=== PATIENT | female | born 1935 | race Caucasian/White ===

== ENCOUNTER → 2017-01-03 | Day surgery (SDC) | payer OTHER ==
[2016-12-14 15:51] VITALS: Ht 162.6 cm; Wt 62.3 kg
[~2017-01-03] VITALS: Ht 162.6 cm; Wt 62.3 kg
[~2017-01-03] MED LIST: 500ML BSS 0.3ML EPI 1:1000PF IRRIG ONE; ACETAMINOPHEN 325 MG TAB PO PRN; AMVISC PLUS 0.8ML SYRINGE INT OCU ONE; ASPI81TA28 PO; ATROPINE SULFATE 0.1 MG/ML 5ML SYR IV PRN; AcetaZOLAMIDE 250 MG TAB PO SCH; BETAXOLOL HCL 0.25% OP SUSP PER DROP CHARGE OPR SCH; BRIMONIDINE TART 0.2% OP SOLN PER DROP CHARGE ONE; BSS FLUSH ONE; CLTP PO; COEN100C15 PO; CYAN500T13 PO; ENDOCOAT 0.85ML SYRINGE INT OCU ONE; EpHEDrine SULFATE INJ 50 MG/ML AMP IV PRN; EpINEphrine INJ 1MG/ML AMP 1 MG/ML AMP ONE; LACTATED RINGER'S 1000ML 500 ML IV SCH; LIDOCAINE 4% OP SOLN DROP CHARGE ONE; LIDOCAINE 4% OP SOLN DROP CHARGE OPR SCH; LIDOCAINE HCL 1% MPF 2 ML VIAL ONE; METO50TA16 PO; MIDAZOLAM HCL 1 MG/ML 2ML VIAL ONE; MIX: 4ML BSS 1ML EPI 1:1000 PF INSTIL ONE; MOXIFLOXACIN OPH SOLN PER DROP CHARGE ONE; MULT-506 PO; OCUCOAT 1 ML SOLN IO ONE; OMEG10007 PO; POVIDONE-IODINE OP SOLN 30 ML BTL ONE; PROPARACAINE 0.5% OP SOLN PER DROP CHARGE OPR SCH; PRVC40 PO; PYRI100T4 PO; TOBRAMYCIN/DEXAMETHASONE OPH OINT PER APPLN CHARGE ONE; TYLOTC500 PO
--- NOTE | 2017-01-03 07:55 | History & Physical Bridge - [place] ---
H&P Re-Evaluation Bridge Note: I have examined the patient, reviewed the History & Physical and in the interval since the performance of the History & Physical I have noted the following changes of clinical significance: No changes noted
[2017-01-03] MEDS: PHENYLEPHRINE HCL 2.5% OP SOLN PER DROP CHARGE OPR SCH ×2 (08:45→08:51)
[2017-01-03] MEDS: TROPICAMIDE 1% OP SOLN PER DROP CHARGE OPR SCH ×2 (08:46→08:52)
[2017-01-03] MEDS: CYCLOPENTOLATE HCL 1% OP SOLN PER DROP CHARGE OPR SCH ×2 (08:47→08:53)
[2017-01-03] MEDS: MOXIFLOXACIN OPH SOLN PER DROP CHARGE OPR SCH ×2 (08:48→08:58)
--- NOTE | 2017-01-03 09:43 | Discharge Instructions-SurgCtr ---
Discharge Instructions Date of Service January 03, 2017. Visit Reason for Visit: Right Cataract Discharge Discharge Diagnosis / Problem: lens implant left eye Discharge Goals Goal(s): Improve function Activity Recommendations Activity Limitations: resume your previous activity Lifting Limitations: no more than 10 pounds Exercise/Sports Limitations: gradually increase as tolerated May Resume Sexual Activity: when tolerated Shower/Bathe: tomorrow Driving or Machine Use: resume 1 day after discharge Anesthesia . Post Anesthesia Instructions: If you have had General Anesthesia or IV Sedation: * Do not drive today. * Resume driving when surgeon permits. * Do not make important decisions or sign legal documents today. * Call surgeon for: 1. Temperature elevations greater than 101 degrees F. 2. Uncontrollable pain. 3. Excessive bleeding. 4. Persistent nausea and vomiting. 5. Medication intolerance (nausea, vomiting or rash). * For nausea and vomiting use only clear liquids such as: tea, soda, bouillon until nausea subsides, then gradually increase diet as tolerated. * If you have any concerns or questions, call your surgeon's office. If physician is unavailable and it is an emergency, call 911 or go to the nearest emergency room. . Instructions / Follow-Up Instructions / Follow-Up ACTIVITY RECOMMENDATIONS: * Light activities. * Mild irritation and blurred vision are common for the first few days. * You may walk outside, read, watch television. * Redness around the white part of the eye is common. MEDICATIONS: Resume previous medications unless instructed otherwise by your surgeon. * Take white Diamox (Acetazolamide) tablet at 1 pm today. Start all eye drops at 1 pm today: * Eye drops (today and tomorrow): Prednisone - one drop in operative eye every 3 hours while awake Tobramycin - one drop in operative eye every 3 hours while awake SPECIAL CARE INSTRUCTIONS: * Tape plastic shield over eye to sleep at night. Call your doctor at with any concerns or problems. FOLLOW UP VISIT: Follow-up with Dr Ferrer at [place] office as scheduled. Diet Recommendations Home Diet: no limitations Procedures Procedures Performed: cataract extraction with lens implant Pending Studies Studies pending at discharge: no Medical Emergencies . Who to Call and When: Medical Emergencies: If at any time you feel your situation is an emergency, please call 911 immediately. . Non-Emergent Contact Non-Emergency issues call your: [employer] Call Non-Emergent contact if: your pain is not controlled [phone] . . "Provider Documentation" section prepared by Marvin Ferrer. .
--- NOTE | 2017-01-03 09:45 | [facility] Operative Report ---
Operative Report Date of Service January 03, 2017. Operative Report 1. PREOPERATIVE DIAGNOSIS: Senile nuclear cataract, right eye. 2. POSTOPERATIVE DIAGNOSIS: Senile nuclear cataract, right eye. 3. PROCEDURE: Phacoemulsification of right cataract with posterior chamber lens implant, type [employer], model MX60, power +23.5 diopters. ANESTHESIA: Local standby. SURGEON: Dr. Ferrer. COMPLICATIONS: None. OPERATING TIME: 10 minutes. 4. OPERATION AND FINDINGS: DESCRIPTION OF PROCEDURE: The right pupil was dilated. The anesthetic was administered using a topical technique. The right eye was prepped and draped. A speculum was placed. A clear corneal incision was formed. The chamber was filled with Amvisc Plus and Endocoat. Epinephrine solution was used. A paracentesis was placed. A capsulorrhexis was performed. The nucleus was hydrodissected. The lens was removed with phacoemulsification. Time was 3.55 seconds. The aspiration unit was used to remove the cortex. The capsule was filled with Amvisc Plus. The lens implant was folded and placed into the capsule. The incision was hydrated. The Amvisc was aspirated. The wound was secure. The chamber was deep. The pupil was round. Brimonidine, TobraDex ointment and Vigamox solution were placed. The speculum was removed. The patient was returned to the Recovery Room in stable condition. I attest to the content of the Intraoperative Record and any orders documented therein. Any exceptions are noted below. The scribe's documentation has been prepared in my presence, under my direction and personally reviewed by me in its entirety. I confirm that the note above accurately reflects all work, treatment, procedures, and medical decision making performed by me. I personally scribed for Marvin Ferrer M.D. ([email or web address]) on 01/03/17 at 09:45. Electronically submitted by Nancy Thomas ([email or web address]).
[2017-01-03 09:47] VITALS: TEMP 36.6
[2017-01-03 10:07] VITALS: BP 128/74; PULSE 67; O2SAT 96
--- NOTE | 2017-01-03 10:12 | Anesthesia Progress Nt - [facility] ---
Anesthesia Post Op Note Date & Time January 03, 2017 at 10:12 Vital Signs Pain Intensity: 0 Vital Signs Past 12 Hours Date Time Temp Pulse Resp B/P Pulse Ox O2 Delivery O2 Flow Rate FiO2 01/03/17 10:07 67 16 128/74 96 Room Air 01/03/17 09:47 36.6 69 16 128/74 95 Room Air 01/03/17 08:49 36.5 88 16 156/88 95 Room Air Notes Mental Status: alert / awake / arousable, participated in evaluation Pt Amnestic to Procedure: Yes Nausea / Vomiting: adequately controlled Pain: adequately controlled Airway Patency, RR, SpO2: stable & adequate BP & HR: stable & adequate Hydration State: stable & adequate Anesthetic Complications: no major complications apparent
== END | disposition home or self-care (01) ==
LOC: X.SURG 08:24
PROVIDERS: ATTEND Specialist
DX: H25.11 Age-related nuclear cataract, right eye (principal); Z79.82 Long term (current) use of aspirin; K21.9 Gastro-esophageal reflux disease without esophagitis; I25.10 Atherosclerotic heart disease of native coronary artery without angina pectoris; I10 Essential (primary) hypertension; E78.5 Hyperlipidemia, unspecified; K44.9 Diaphragmatic hernia without obstruction or gangrene; Z85.820 Personal history of malignant melanoma of skin

== ENCOUNTER → 2017-01-16 | Outpatient (CLI) | payer OTHER ==
[~2017-01-16] MED LIST changes: -500ML BSS 0.3ML EPI 1:1000PF IRRIG ONE; -ACETAMINOPHEN 325 MG TAB PO PRN; -AMVISC PLUS 0.8ML SYRINGE INT OCU ONE; -ATROPINE SULFATE 0.1 MG/ML 5ML SYR IV PRN; -AcetaZOLAMIDE 250 MG TAB PO SCH; -BETAXOLOL HCL 0.25% OP SUSP PER DROP CHARGE OPR SCH; -BRIMONIDINE TART 0.2% OP SOLN PER DROP CHARGE ONE; -BSS FLUSH ONE; -ENDOCOAT 0.85ML SYRINGE INT OCU ONE; -EpHEDrine SULFATE INJ 50 MG/ML AMP IV PRN; -EpINEphrine INJ 1MG/ML AMP 1 MG/ML AMP ONE; -LACTATED RINGER'S 1000ML 500 ML IV SCH; -LIDOCAINE 4% OP SOLN DROP CHARGE ONE; -LIDOCAINE 4% OP SOLN DROP CHARGE OPR SCH; -LIDOCAINE HCL 1% MPF 2 ML VIAL ONE; -MIDAZOLAM HCL 1 MG/ML 2ML VIAL ONE; -MIX: 4ML BSS 1ML EPI 1:1000 PF INSTIL ONE; -MOXIFLOXACIN OPH SOLN PER DROP CHARGE ONE; -OCUCOAT 1 ML SOLN IO ONE; -POVIDONE-IODINE OP SOLN 30 ML BTL ONE; -PROPARACAINE 0.5% OP SOLN PER DROP CHARGE OPR SCH; -TOBRAMYCIN/DEXAMETHASONE OPH OINT PER APPLN CHARGE ONE
--- NOTE | 2017-01-16 14:57 | MAMMOGRAPHY REPORT ---
BILATERAL DIGITAL SCREENING MAMMOGRAM WITH CAD: 01/16/2017 CLINICAL HISTORY: Routine screening. Patient has no complaints. TECHNIQUE: Bilateral CC and MLO views were obtained. Current study was also evaluated with a Comput er Aided Detection (CAD) system. COMPARISON: Comparison is made to exams dated: 01/14/2016 mammogram, 01/12/2015 mammogram, 11/17/2013 mammogram, 11/14/2011 mammogram - [facility], 11/11/2007, and 11/12/2009 mammogram - [facility]. BREAST COMPOSITION: There are scattered areas of fibroglandular density in both breasts. FINDINGS: There are moderate vascular calcifications in the breasts. Numerous benign rim calcificat ions and scattered punctate benign-appearing microcalcifications. No new suspicious mass, senior security architect ural distortion or cluster of microcalcifications is seen. IMPRESSION: ACR BI-RADS CATEGORY 1: NEGATIVE There is no mammographic evidence of malignancy. A 1 year screening mammogram is recommended. The p atient will receive written notification of the results. Approximately 10% of breast cancers are not detected with mammography. A negative mammographic repor t should not delay biopsy if a clinically suggestive mass is present. Lise Mei M.D. ay/:01/16/2017 11:26:38 Chart Clerk: Nadiya SHORT)(Sandra), [facility] letter sent: Normal 1/2 BI-RADS Code: ACR BI-RADS Category 1: Negative
== END | disposition home or self-care (01) ==
LOC: C.MAMM 09:03
PROVIDERS: ATTEND Internal Medicine
DX: Z12.31 Encounter for screening mammogram for malignant neoplasm of breast (principal)

== ENCOUNTER → 2017-05-26 | Outpatient (CLI) | payer OTHER ==
--- NOTE | 2017-05-26 14:01 | DIAGNOSTIC IMAGING REPORT ---
R VENOUS DOPP LOWER EXT UNILAT HISTORY: 81 years-old Female R60.0 LEG EDEMA RIGHT LEG acute edema of the right lower extremity COMPARISON: None available TECHNIQUE: Multiple real-time sonographic images of the right lower extremity venous structures were obtained assessing grayscale appearance, color and spectral flow FINDINGS: There is normal flow, compressibility and augmentation within the right lower extremity deep venous structures. IMPRESSION: No sonographic evidence of deep venous thrombosis within the right lower extremity. The above report was generated using voice recognition software. It may contain grammatical, syntax or spelling errors. Electronically signed by: Srinivasa Luque M.D. 05/26/2017 1:59 PM Dictated Date/Time: 05/26/2017 1:57 PM
== END | disposition home or self-care (01) ==
LOC: C.ULTR 12:55
PROVIDERS: ATTEND Family Medicine
DX: R60.0 Localized edema (principal)

== ENCOUNTER 2019-12-23 11:26 | Inpatient (IN) ==
[2019-12-23 12:37] LABS: Basophils # (auto) 0.02 K/uL (0-0.2); Basophils % (auto) 0.3 %; Hemoglobin 13.3 g/dL (12.0-16.0); Immature Granulocytes # (auto) 0.02 K/uL (0.00-0.02); Immature Granulocytes % (auto) 0.3 %; Lymphocytes # (auto) 2.57 K/uL (1.2-3.4); Lymphocytes % (auto) 38.3 %; Mean Corpuscular Hemoglobin 32.8 pg (25-34); Mean Corpuscular Hgb Conc 33.3 g/dL (32-36); Mean Corpuscular Volume 98.5 fL (80-100); Mean Platelet Volume 8.8 fL (7.4-10.4); Monocytes # (auto) 0.58 K/uL (0.11-0.59); Monocytes % (auto) 8.6 %; Neutrophils # (auto) 3.32 K/uL (1.4-6.5); Neutrophils % (auto) 49.5 %; Platelet Count 281 K/uL (130-400); RDW Coefficient of Variation 13.6 % (11.5-14.5); RDW Standard Deviation 48.6 fL (36.4-46.3); Red Blood Count 4.06 M/uL (4.2-5.4); White Blood Count 6.71 K/uL (4.8-10.8)
[2019-12-23 12:46] LABS: Alanine Aminotransferase 26 U/L (12-78); Albumin Level 3.5 gm/dl (3.4-5.0); Aspartate Aminotransferase 29 U/L (15-37); BUN Creatinine Ratio 28.2 (10-20); Blood Urea Nitrogen 18 mg/dl (7-18); Calcium 9.1 mg/dl (8.5-10.1); Carbon Dioxide 26 mmol/L (21-32); Chloride 107 mmol/L (98-107); Creatinine Clr Calc Pharmacy 63.3 ml/min; Est GFR (African American) 96.1; Est GFR (Non-African American) 82.9; Glucose 127 mg/dl (70-99); Lipase 74 U/L (73-393); Potassium 4.4 mmol/L (3.5-5.1); Sodium 140 mmol/L (136-145)
[2019-12-23 12:58] LABS: Alkaline Phosphatase 79 U/L (45-117); Bilirubin,Total 0.6 mg/dl (0.2-1); Globulin 3.5 gm/dl (2.5-4.0); NT Pro B Type Natriuretic Pept 74 pg/ml (0-1800); Troponin I < 0.015 ng/ml (0-0.045)
[2019-12-23 12:59] LABS: D Dimer 900 ug/L FEU (0-500)
--- NOTE | 2019-12-23 13:01 | Emergency Department Note ---
History of Present Illness General Chief complaint: Chest Pain Stated complaint: CHEST PAIN/TIGHTNESS,SWEATING Time Seen by Provider: 12/23/19 11:55 Source: patient Mode of arrival: ambulatory Limitations: no limitations History of Present Illness Provider complaint: Chest pain, seeing spots Onset (ago): hour(s) 2 Location: chest Radiation: non-radiation Severity: moderate Pain Consistency: + constant Maximum Pain Intensity: 2 Current Pain Intensity: 2 Quality: + sharp Relieved By: + none Exacerbated By: + none Associated symptoms: + diaphoresis and + shortness of breath; no cough and no nausea/vomiting Treatments prior to arrival: aspirin and other (Nitro) This is an 84-year-old female who presents from home after the sudden onset of lower bilateral chest pain. Patient states she had just cleaned the shower and then taken a shower. When she got out she began to notice she was slightly lightheaded and seeing spots and noticed a sharp bilateral lower chest pain. Patient states she walked out into her home and informed her and sat down. Patient states the sense of seeing spots resolved but she also noticed that she was sweating and felt slightly short of breath. Patient's gave her a nitroglycerin tablet as well as 2 baby aspirin. Patient states she sat there for a while longer and did not feel improved so her called her daughter who then brought her to the emergency room. Patient does see Dr. Zamudio for cardiology as she has previously had a stent placed. Patient denies any other recent change in diet or activity, no new medications. Patient denies any recent cough or cold symptoms. Denies any change in bowel or bladder function. States the pain did not go into her back, no accompanying neck or jaw pain. No known contact with any coronavirus positive individual. Pt seen during a time of high acuity and national emergency pandemic while wearing PPE. Home Medications Home Medications Medication Instructions Recorded Confirmed Type aspirin [Aspir-81] 81 mg PO DAILY 12/23/19 12/23/19 History coenzyme Q10 [CoQ-10] 100 mg PO DAILY 12/23/19 12/23/19 History fluticasone propionate [Flonase 2 spray INTRANASAL DAILY 12/23/19 12/23/19 History Allergy Relief] metoprolol tartrate 50 mg PO BID 12/23/19 12/23/19 History multivitamin 1 tab PO DAILY 12/23/19 12/23/19 History omega 6-mow-pzn-fish oil [Fish Oil] 1 cap PO DAILY 12/23/19 12/23/19 History pravastatin 40 mg PO DAILY 12/23/19 12/23/19 History pyridoxine (vitamin B6) [Vitamin 25 mg PO DAILY 12/23/19 12/23/19 History B-6] Allergies Allergy/AdvReac Type Severity Reaction Status Date / Time THAD Inhibitors Allergy Intermediate RASH Verified 12/23/19 12:53 adhesive Allergy Unknown TAPES-REDNESS Verified 12/23/19 12:53 RASH-STICKY TAPE amoxicillin Allergy Unknown RASH Verified 12/23/19 12:53 latex Allergy Unknown RED HANDS Verified 12/23/19 12:53 WITH GLOVES losartan Allergy Unknown RASH-GI Verified 12/23/19 12:53 UPSET Penicillins Allergy Unknown RASH Verified 12/23/19 12:53 Cipro AdvReac Severe "sick" Verified 02/19/18 07:40 ciprofloxacin AdvReac Severe "sick" Verified 12/23/19 12:53 morphine AdvReac Mild vOMITING Verified 12/23/19 12:53 Past Med/Surg History Medical History (Updated 12/23/19 @ 18:07 by Clau Astudillo DO) CAD (coronary atherosclerotic disease) Hypercholesterolemia Hypertension Surgical History (Updated 12/23/19 @ 18:06 by Shelia Lundberg PA-C) History of ankle joint replacement Left History of bilateral total hip arthroplasty History of carpal tunnel surgery of right wrist History of cataract extraction History of colonoscopy with polypectomy History of hysterectomy History of inguinal hernia repair, bilateral History of placement of stent in LAD coronary artery Chronic CAD with s/p PCI stent to mid LAD with bare metal stent May 2001. 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 History of shoulder surgery Family History (Updated 12/23/19 @ 18:06 by Shelia Lundberg PA-C) Mother , at 89 Asthma Father , 100 Prostate cancer Social History Preferred Language: Bengali Communication Ability: Effective marital status: Current Living Situation: Spouse current occupational status: retired other: Ambulates with a cane Feels Safe at Home: Yes Smoking Status: Never smoker Hx Alcohol Use: Yes Alcohol type: wine Alcohol Intake Frequency: Rarely Review of Systems See HPI for pertinent positives & negatives. and A total of 10 systems reviewed and were otherwise negative Physical Exam Vital Signs Vital Signs - 24 hr 12/23/19 11:36 12/23/19 11:37 12/23/19 11:42 Temperature 36.7 C Temperature Source Oral Pulse Rate 66 66 62 Pulse Rate from SpO2 Sensor 66 63 Respiratory Rate 16 25 H 22 Blood Pressure 143/79 H 143/79 H Blood Pressure Mean 100 100 Pulse Oximetry 97 97 97 Oxygen Delivery Method Room Air Room Air Room Air Sepsis Recent Fever Within 48 Hours No Sepsis New/Unexplained Change in Mental Status No Sepsis Action Taken by Nursing No Action Required 12/23/19 11:47 12/23/19 11:50 12/23/19 12:00 Temperature Temperature Source Pulse Rate 62 60 Pulse Rate from SpO2 Sensor 61 60 Respiratory Rate 21 20 Blood Pressure 121/68 Blood Pressure Mean 88 Pulse Oximetry 95 96 Oxygen Delivery Method Room Air Room Air Room Air Sepsis Recent Fever Within 48 Hours Sepsis New/Unexplained Change in Mental Status Sepsis Action Taken by Nursing 12/23/19 12:01 12/23/19 12:10 12/23/19 12:20 Temperature Temperature Source Pulse Rate 56 L 58 L 61 Pulse Rate from SpO2 Sensor 56 L 58 L 60 Respiratory Rate 14 20 18 Blood Pressure Blood Pressure Mean Pulse Oximetry 96 93 97 Oxygen Delivery Method Room Air Room Air Room Air Sepsis Recent Fever Within 48 Hours Sepsis New/Unexplained Change in Mental Status Sepsis Action Taken by Nursing 12/23/19 12:30 12/23/19 12:31 12/23/19 13:28 Temperature Temperature Source Pulse Rate 59 L 62 72 Pulse Rate from SpO2 Sensor 58 L 62 Respiratory Rate 22 16 26 H Blood Pressure 128/70 Blood Pressure Mean 92 Pulse Oximetry 94 95 Oxygen Delivery Method Room Air Room Air Room Air Sepsis Recent Fever Within 48 Hours Sepsis New/Unexplained Change in Mental Status Sepsis Action Taken by Nursing 12/23/19 13:30 12/23/19 13:31 12/23/19 13:54 Temperature Temperature Source Pulse Rate 67 66 122 H Pulse Rate from SpO2 Sensor 67 66 Respiratory Rate 22 19 26 H Blood Pressure 153/87 H Blood Pressure Mean 108 Pulse Oximetry 99 97 Oxygen Delivery Method Room Air Room Air Room Air Sepsis Recent Fever Within 48 Hours Sepsis New/Unexplained Change in Mental Status Sepsis Action Taken by Nursing 12/23/19 14:00 12/23/19 14:10 12/23/19 14:20 Temperature Temperature Source Pulse Rate 73 79 77 Pulse Rate from SpO2 Sensor 73 76 77 Respiratory Rate 16 21 15 Blood Pressure Blood Pressure Mean Pulse Oximetry 98 99 97 Oxygen Delivery Method Room Air Room Air Room Air Sepsis Recent Fever Within 48 Hours Sepsis New/Unexplained Change in Mental Status Sepsis Action Taken by Nursing 12/23/19 14:30 12/23/19 14:40 12/23/19 14:50 Temperature Temperature Source Pulse Rate 72 76 81 Pulse Rate from SpO2 Sensor 72 77 77 Respiratory Rate 17 19 16 Blood Pressure Blood Pressure Mean Pulse Oximetry 96 98 95 Oxygen Delivery Method Room Air Room Air Room Air Sepsis Recent Fever Within 48 Hours Sepsis New/Unexplained Change in Mental Status Sepsis Action Taken by Nursing 12/23/19 15:00 12/23/19 15:10 12/23/19 15:20 Temperature Temperature Source Pulse Rate 72 73 75 Pulse Rate from SpO2 Sensor 72 73 73 Respiratory Rate 18 20 13 Blood Pressure Blood Pressure Mean Pulse Oximetry 99 96 96 Oxygen Delivery Method Room Air Room Air Room Air Sepsis Recent Fever Within 48 Hours Sepsis New/Unexplained Change in Mental Status Sepsis Action Taken by Nursing 12/23/19 15:30 12/23/19 15:31 12/23/19 15:48 Temperature Temperature Source Pulse Rate 74 74 75 Pulse Rate from SpO2 Sensor 73 75 Respiratory Rate 14 11 L 17 Blood Pressure 148/87 H Blood Pressure Mean 105 Pulse Oximetry 98 99 Oxygen Delivery Method Room Air Room Air Room Air Sepsis Recent Fever Within 48 Hours Sepsis New/Unexplained Change in Mental Status Sepsis Action Taken by Nursing 12/23/19 15:50 12/23/19 16:00 12/23/19 16:01 Temperature Temperature Source Pulse Rate 69 68 72 Pulse Rate from SpO2 Sensor 70 68 70 Respiratory Rate 17 21 19 Blood Pressure 177/89 H Blood Pressure Mean 135 Pulse Oximetry 98 96 97 Oxygen Delivery Method Room Air Room Air Room Air Sepsis Recent Fever Within 48 Hours Sepsis New/Unexplained Change in Mental Status Sepsis Action Taken by Nursing 12/23/19 16:10 12/23/19 16:20 12/23/19 16:30 Temperature Temperature Source Pulse Rate 72 65 72 Pulse Rate from SpO2 Sensor 71 64 70 Respiratory Rate 23 16 16 Blood Pressure Blood Pressure Mean Pulse Oximetry 97 99 94 Oxygen Delivery Method Room Air Room Air Room Air Sepsis Recent Fever Within 48 Hours Sepsis New/Unexplained Change in Mental Status Sepsis Action Taken by Nursing 12/23/19 16:31 05/05/20 16:40 Temperature Temperature Source Pulse Rate 66 78 Pulse Rate from SpO2 Sensor 66 75 Respiratory Rate 19 18 Blood Pressure 139/76 Blood Pressure Mean 85 Pulse Oximetry 98 93 Oxygen Delivery Method Room Air Room Air Sepsis Recent Fever Within 48 Hours Sepsis New/Unexplained Change in Mental Status Sepsis Action Taken by Nursing GENERAL: alert, well appearing, well nourished, no distress, non-toxic EYE EXAM: normal conjunctiva, PERRL and EOM's grossly intact OROPHARYNX: no exudate, no erythema, lips, buccal mucosa, and tongue normal and mucous membranes are moist NECK: supple, no nuchal rigidity, no adenopathy, non-tender LUNGS: Clear to auscultation. Normal chest wall mechanics, no w/r/r HEART: no murmurs, S1 normal and S2 normal, no reproducible chest wall te nderness ABDOMEN: abdomen soft, non-tender, normo-active bowel sounds, no masses, no rebound or guarding. BACK: Back is symmetrical on inspection and there is no deformity, no midline tenderness, no CVA tenderness. SKIN: no rashes and no bruising UPPER EXTREMITIES: upper extremities are grossly normal. FROM, nml pulses b/l. LOWER EXTREMITIES: No pitting edema. FROM, nml pulses b/l. NEURO EXAM: Normal sensorium, cranial nerves II-XII grossly intact, normal speech, no facial droop, no gross weakness of arms, no gross weakness of legs. No pronator drift. Finger to nose intact. No ataxia. Gross sensation intact. Course Course 1507: Case discussed with Dr. Gomes. If 2nd trop negative, can followup with Ayan in office. Would suggest starting on low dose Imdur, 30 mg daily. 1525: Pt updated on results and plan. 1650: Pt updated on 2nd trop. No current pain. VSS. 165: Case discussed with Shelia Gramajo [facility]. 1702: Case discussed again with Dr. Gomes. Agrees with plan for low-dose heparin, no bolus Critical Care Time Critical Care Time: Yes Total Critical Care Time: 50 Critical care of 50 min performed to assess and manage high likelihood of life- threatening chest pain, involving labs and imaging performed with assessment to evaluation ACS diagnosis with frequent reassessment. This time includes bedside time, treatment discussions with patient/family/consultants, documentation time and excludes procedure time. Medical Decision Making Differential Diagnosis Differential diagnoses includes but is not limited to acute coronary syndrome, myocardial infarction, pericarditis, pulmonary embolus, aortic dissection, pneumonia, pneumothorax, musculoskeletal, shingles, esophageal. Medical Records Attestation: I reviewed the patient's medical records. Home Medications Current Medication List: was personally reviewed by me Laboratory Data Attestation: I reviewed the patient's lab results. Result diagrams: 12/23/19 11:45 12/23/19 11:45 Lab Results 12/23/19 12/23/19 12/23/19 Range/Units 11:45 11:45 11:45 WBC 6.71 (4.8-10.8) K/uL RBC 4.06 L (4.2-5.4) M/uL Hgb 13.3 (12.0-16.0) g/dL Hct 40.0 (37-47) % MCV 98.5 (80-100) fL MCH 32.8 (25-34) pg MCHC 33.3 (32-36) g/dL RDW Std Deviation 48.6 H (36.4-46.3) fL RDW Coeff of Damon 13.6 (11.5-14.5) % Plt Count 281 (130-400) K/uL MPV 8.8 (7.4-10.4) fL Immature Gran % (Auto) 0.3 % Neut % (Auto) 49.5 % Lymph % (Auto) 38.3 % [place] % (Auto) 8.6 % Eos % (Auto) 3.0 % Baso % (Auto) 0.3 % Immature Gran # (Auto) 0.02 (0.00-0.02) K/uL Neut # (Auto) 3.32 (1.4-6.5) K/uL Lymph # (Auto) 2.57 (1.2-3.4) K/uL [place] # (Auto) 0.58 (0.11-0.59) K/uL Eos # (Auto) 0.20 (0-0.5) K/uL Baso # (Auto) 0.02 (0-0.2) K/uL APTT (21.0-31.0) Seconds PTT Ratio D-Dimer 900 H* (0-500) ug/L FEU Sodium 140 (136-145) mmol/L Potassium 4.4 (3.5-5.1) mmol/L Chloride 107 (98-107) mmol/L Carbon Dioxide 26 (21-32) mmol/L Anion Gap 6.0 (3-11) BUN 18 (7-18) mg/dl Creatinine 0.63 (0.6-1.2) mg/dl Est Cr Clr Drug Dosing 63.3 ml/min Est GFR ( Amer) 96.1 Est GFR (Non-Af Amer) 82.9 BUN/Creatinine Ratio 28.2 H (10-20) Glucose 127 H (70-99) mg/dl Calcium 9.1 (8.5-10.1) mg/dl Magnesium 2.0 (1.8-2.4) mg/dl Total Bilirubin 0.6 (0.2-1) mg/dl AST 29 (15-37) U/L ALT 26 (12-78) U/L Alkaline Phosphatase 79 (45-117) U/L Troponin I < 0.015 (0-0.045) ng/ml NT-Pro-B Natriuret Pep 74 (0-1800) pg/ml Total Protein 7.0 (6.4-8.2) gm/dl Albumin 3.5 (3.4-5.0) gm/dl Globulin 3.5 (2.5-4.0) gm/dl Albumin/Globulin Ratio 1.0 (0.9-2) Lipase 74 (73-393) U/L TSH 2.920 (0.300-4.500) uIu/ml Specimen Hemolysis 12/23/19 12/23/19 Range/Units 11:45 15:57 WBC (4.8-10.8) K/uL RBC (4.2-5.4) M/uL Hgb (12.0-16.0) g/dL Hct (37-47) % MCV (80-100) fL MCH (25-34) pg MCHC (32-36) g/dL RDW Std Deviation (36.4-46.3) fL RDW Coeff of Damon (11.5-14.5) % Plt Count (130-400) K/uL MPV (7.4-10.4) fL Immature Gran % (Auto) % Neut % (Auto) % Lymph % (Auto) % [place] % (Auto) % Eos % (Auto) % Baso % (Auto) % Immature Gran # (Auto) (0.00-0.02) K/uL Neut # (Auto) (1.4-6.5) K/uL Lymph # (Auto) (1.2-3.4) K/uL [place] # (Auto) (0.11-0.59) K/uL Eos # (Auto) (0-0.5) K/uL Baso # (Auto) (0-0.2) K/uL APTT 24.2 (21.0-31.0) Seconds PTT Ratio 0.9 D-Dimer (0-500) ug/L FEU Sodium (136-145) mmol/L Potassium (3.5-5.1) mmol/L Chloride (98-107) mmol/L Carbon Dioxide (21-32) mmol/L Anion Gap (3-11) BUN (7-18) mg/dl Creatinine (0.6-1.2) mg/dl Est Cr Clr Drug Dosing ml/min Est GFR ( Amer) Est GFR (Non-Af Amer) BUN/Creatinine Ratio (10-20) Glucose (70-99) mg/dl Calcium (8.5-10.1) mg/dl Magnesium (1.8-2.4) mg/dl Total Bilirubin (0.2-1) mg/dl AST (15-37) U/L ALT (12-78) U/L Alkaline Phosphatase (45-117) U/L Troponin I 0.122 H* (0-0.045) ng/ml NT-Pro-B Natriuret Pep (0-1800) pg/ml Total Protein (6.4-8.2) gm/dl Albumin (3.4-5.0) gm/dl Globulin (2.5-4.0) gm/dl Albumin/Globulin Ratio (0.9-2) Lipase (73-393) U/L TSH (0.300-4.500) uIu/ml Specimen Hemolysis Imaging Data Radiologist's Impression: XR abdomen 2V w PA chest CLINICAL HISTORY: 84 years-old Female presenting with lower chest/upper abd pain. TECHNIQUE: PA view of the chest and supine and upright views of the abdomen were obtained. COMPARISON: Chest x-ray from 08/25/2014. FINDINGS: Atherosclerosis of the aortic arch. Cardiac silhouette normal in size. Coronary artery calcification or stents noted. Mitral annular calcification. Lungs mildly hyperinflated. No focal opacity. No pleural effusion or pneumothorax. Cholecystectomy clips noted. Nonobstructive bowel gas pattern. No gross pneumoperitoneum. Coils skylar in the region of the right lower quadrant likely indicate prior right inguinal hernia repair. Allowing for bowel gas and stool, no calcifications to suggest nephrolithiasis. Degenerative changes of the spine. Bilateral total hip arthroplasty. IMPRESSION: 1. No acute cardiopulmonary disease. 2. No radiographic evidence of acute intra-abdominal pathology. ACT 112: Negative or not required by law. Electronically signed by: Hussein Garcia M.D. 12/23/2019 1:[address] ANGIOGRAM OF THE CHEST CLINICAL HISTORY: Epigastric pain, nausea, vomiting, possible acute pulmonary embolism. COMPARISON STUDY: Chest x-ray dated 12/23/2019 TECHNIQUE: Following the IV administration of 120 mL of Optiray-320, CT angiogram of the thorax was performed from the thoracic inlet to the lung bases utilizing the pulmonary embolus protocol. Images are reviewed in the axial, sagittal, and coronal planes. IV contrast was administered without complication. MIP imaging was performed. A dose lowering technique was utilized adhering to the principles of ALARA. CT DOSE: 331.24 mGy.cm FINDINGS: No pathologically enlarged axillary mediastinal or hilar lymph nodes were visualized. The ascending thoracic aorta measures 33 mm. There were no pulmonary artery filling defects to indicate acute pulmonary embolism. No pleural effusions are visualized. There is biapical from a nodular scarring. There is no focal pulmonary consolidation. There are mild dependent atelectatic changes. There is a 3 x 2 mm left upper lobe pulmonary nodule. No further follow-up is indicated. There is a calcified left lower lobe granuloma. IMPRESSION: 1. No acute intrathoracic findings 2. No evidence of acute pulmonary embolism 3. No evidence of focal pulmonary consolidation ACT 112: Negative or not required by law. Electronically signed by: Darshan Almonte M.D. 12/23/2019 2:01 PM ECG Data Attestation: I personally reviewed and interpreted this ECG as follows: Indication: + chest pain Rate (beats per minute): 68 Rhythm: + normal sinus ECG Intervals/blocks: + Normal QRS and + Normal QT ECG Fletcher: + Normal ECG ST segments: + Normal ST segments Blood Pressure Blood Pressure Findings: Elevated blood pressure Blood Pressure Disposition: further management by hospitalist XIAO Maza Patient presenting here after atypical episode of chest pain at home. Patient reported symptoms of near syncope, dizziness, diaphoresis, and shortness of breath. No prior similar episodes. Labs drawn and sent, chest x-ray unremarkable. Initial labs reassuring and symptoms had improved by the time of her presentation here. Patient made hemodynamically stable. 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 Gomes. Given the current pandemic in patients atypical symptoms, we felt it was reasonable to observe the patient and perform a second Troponin at the 6-hour gen and attempt to discharge the patient if she remained asymptomatic for close follow-up with her stitch bonding machine tender helper. Patient's second troponin unfortunately was elevated despite patient remaining asymptomatic. Case again discussed with stitch bonding machine tender helper. Patient started on heparin drip. Patient already had aspirin at home. Case discussed with hospitalist for additional evaluation and management. No evidence on CT angiography for PE, dissection, worsening aneurysm, mediastinitis, perforation, or occult infection. Patient kept aware of all results and was in agreement with plan. Patient has family history of coronary artery disease. Observation began at 1155 and was necessary in order to rule out ACS and to preclude an unnecessary admission. Upon re-evaluation, observation revealed that the patient should be admitted. Patient was discharged from observation at 1700 . An order was placed for continuous cardiac monitoring. The monitor shows a rate of 76 with normal sinus rhythm. Impression & Plan Atypical chest pain, Elevated troponin, Non-ST elevation MO (NSTEMI) Discharge Plan Visit Data Chief Complaint: Chest Pain Stated Complaint: CHEST PAIN/TIGHTNESS,SWEATING ED Provider: Clau Astudillo Discharge Problem: Atypical chest pain, Elevated troponin, Non-ST elevation MO (NSTEMI) Patient Disposition: Being Evaluated by Hospitalist Condition: Good Forms Stand Alone Forms: [employer] Prescriptions Prescriptions: No Action multivitamin Tablet 1 tab PO DAILY RF: 0 pravastatin 40 mg tablet 40 mg PO DAILY RF: 0 pyridoxine (vitamin B6) [Vitamin B-6] 25 mg Tablet 25 mg PO DAILY RF: 0 aspirin [Aspir-81] 81 mg Tablet,Delayed Release (Dr/Ec) 81 mg PO DAILY RF: 0 metoprolol tartrate 50 mg tablet 50 mg PO BID RF: 0 fluticasone propionate [Flonase Allergy Relief] 50 mcg/actuation [place],Suspension 2 spray INTRANASAL DAILY RF: 0 coenzyme Q10 [CoQ-10] 100 mg Capsule 100 mg PO DAILY RF: 0 omega 2-hfb-ajv-fish oil [Fish Oil] 1,000 mg (120 mg-180 mg) Capsule 1 cap PO DAILY RF: 0 Referrals Referrals: Gee Gamez DO [Primary Care Provider] -
--- NOTE | 2019-12-23 14:02 | CT Scan Report ---
CT ANGIOGRAM OF THE CHEST CLINICAL HISTORY: Epigastric pain, nausea, vomiting, possible acute pulmonary embolism. COMPARISON STUDY: Chest x-ray dated 12/23/2019 TECHNIQUE: Following the IV administration of 120 mL of Optiray-320, CT angiogram of the thorax was p erformed from the thoracic inlet to the lung bases utilizing the pulmonary embolus protocol. Images a re reviewed in the axial, sagittal, and coronal planes. IV contrast was administered without complica tion. MIP imaging was performed. A dose lowering technique was utilized adhering to the principles o f ALARA. CT DOSE: 331.24 mGy.cm FINDINGS: No pathologically enlarged axillary mediastinal or hilar lymph nodes were visualized. The ascending thoracic aorta measures 33 mm. There were no pulmonary artery filling defects to indicate acute pulmonary embolism. No pleural effusions are visualized. There is biapical from a nodular scarring. There is no focal pulmonary consolidation. There are mild dependent atelectatic changes. There is a 3 x 2 mm left upper lobe pulmonary nodule. No further follo w-up is indicated. There is a calcified left lower lobe granuloma. IMPRESSION: 1. No acute intrathoracic findings 2. No evidence of acute pulmonary embolism 3. No evidence of focal pulmonary consolidation ACT 112: Negative or not required by law. Electronically signed by: Darshan Almonte M.D. 12/23/2019 2:01 PM
--- NOTE | 2019-12-23 14:37 | Electrocardiogram Report ---
Test Reason : Blood Pressure : / mmHG Vent. Rate : 068 BPM Atrial Rate : 068 BPM P-R Int : 184 ms QRS Dur : 080 ms QT Int : 404 ms P-R-T Axes : 071 -07 072 degrees QTc Int : 429 ms Sinus rhythm with frequent Premature atrial complexes Abnormal ECG When compared with ECG of 25-AUG-2014 14:47, Premature atrial complexes now present Confirmed by Efrain Howe ([id number]) on 12/23/2019 2:37:10 PM Referred By: REFERRED SELF Confirmed By:Efrain Howe
[2019-12-23] MEDS ORDERED: Heparin IV Low Dose *NO* Bolus ONE (17:03)
[2019-12-23] MEDS ORDERED: HEPARIN SODIUM/DEXTROSE 25,000 UNITS/500 ML BAG IV SCH ×2 (17:15→19:58)
[2019-12-23 17:43] LABS: Partial Thromboplastin Ratio 0.9; Partial Thromboplastin Time 24.2 Seconds (21.0-31.0)
--- NOTE | 2019-12-23 18:16 | History & Physical Report ---
Date of Service December 23, 2019 Assessment & Plan (1) Atypical chest pain: (2) Non-ST elevation OR (NSTEMI): This is an 84-year-old female who has significant PMH of CAD with history of bare-metal stent 05/2001 to LAD, HTN, HLD, Raynauds, allergic rhinitis, chronic right lower extremity lymphedema who presents to ED secondary to chest pain x1 hour prior to arrival. Patient presents with atypical chest pain and relieved upon arrival. Initial work-up revealed EKG normal sinus rhythm without ST or T wave change for troponin WNL, CBC and CMP relatively unremarkable. Repeat troponin was elevated at 0.122. She continues to remain asymptomatic and chest pain free. Prior to arrival she did take nitroglycerin and 2 baby aspirin. Admit to PCU Continue IV heparin low-dose no bolus Cycle troponins, trend til peak obtain echo cardiology consulted NPO after midnight continue ASA, statin, Metoprolol lipid panel, a1c in a.m. (3) CAD (coronary atherosclerotic disease): History of PCI with bare-metal stent LAD in 2000 Follows [facility] cardiology Dr. Zamudio Last echocardiogram in 2013 revealed EF 55 to 60% with grade 1 diastolic dysfunction, moderate hypokinesis of the apical and anterior septal region consistent with previous On ASA, statin, metoprolol THAD/ARB intolerant per records Cardiology consulted (4) Hypertension: Blood pressure stable in ED Continue metoprolol (5) Hypercholesterolemia: Continue statin Fasting lipid panel in a.m. (6) DVT prophylaxis: IV Heparin FULL CODE Disposition: Admit to tele Follow up: PCP Dr. Gamez upon discharge Pt was seen and examined in collaboration with Dr. Busch, please see addendum History of Present Illness Chief Complaint: Chest pain x 1 hr prior to arrival Primary Care Provider: Gee Gamez, This is an 84-year-old female who has significant PMH of CAD with history of bare-metal stent 05/2001 to LAD, HTN, HLD, Raynauds, allergic rhinitis, chronic right lower extremity lymphedema who presents to ED secondary to chest pain x1 hour prior to arrival. She elicits she did her usual routine this morning had coffee and ate breakfast. Afterwards she went upstairs to take a shower when she noticed that the shower needing cleaned. She started to clean the shower with a broom and developed chest pain underneath bilateral breasts. Pain was nonradiating, rated 5/10, improved after administration of 2 baby aspirin and nitro, nothing made worse, associated with diaphoresis, lightheadedness and dizziness. She denied any associated shortness of breath or palpitations. She does have prior history of OR but felt that her previous OR was much more painful. She described this chest pain as a, "ache." Up until today she been in her usual state of health. She has been under a lot of stress given the pandemic as well as her is currently undergoing bladder cancer treatment at [place] once a week. She denies any fever, chills, sweats, syncope, sh ortness of breath, palpitations, cough, hemoptysis, nausea, vomiting, abdominal pain, dysuria, increased urgency or frequency with urination. She denies any weight loss or weight gain. Does have chronic right lower extremity lymphedema but does not feel it is any worse. She does get intermittent vertigo which she did have an episode yesterday. Describes this as a, "spinning sensation." She also elicits frequent rhinorrhea. She denies any loss of taste or smell. She denies any exposure to any [employer] contacts. She denies any recent travel the past 2 weeks. In ED patient remained hemodynamically stable. Initial work-up was revealed troponin WNL, EKG without acute ST or T wave change, elevated d-dimer. CBC and CMP were otherwise unremarkable. Chest x-ray and CTA of chest were negative for any acute cardiopulmonary abnormality. Repeat troponin elevated 0.122. ED provider contacted on-call cardiology who recommended admission with initiation of low-dose IV heparin no bolus. Patient is currently asymptomatic and pain-free. Allergies Allergy/AdvReac Type Severity Reaction Status Date / Time THAD Inhibitors Allergy Intermediate RASH Verified 12/23/19 12:53 adhesive Allergy Unknown TAPES-REDNESS Verified 12/23/19 12:53 RASH-STICKY TAPE amoxicillin Allergy Unknown RASH Verified 12/23/19 12:53 latex Allergy Unknown RED HANDS Verified 12/23/19 12:53 WITH GLOVES losartan Allergy Unknown RASH-GI Verified 12/23/19 12:53 UPSET Penicillins Allergy Unknown RASH Verified 12/23/19 12:53 Cipro AdvReac Severe "sick" Verified 02/19/18 07:40 ciprofloxacin AdvReac Severe "sick" Verified 12/23/19 12:53 morphine AdvReac Mild vOMITING Verified 12/23/19 12:53 Home Medications Home Medications Medication Instructions Recorded Confirmed Type aspirin [Aspir-81] 81 mg PO DAILY 12/23/19 12/23/19 History coenzyme Q10 [CoQ-10] 100 mg PO DAILY 12/23/19 12/23/19 History fluticasone propionate [Flonase 2 spray INTRANASAL DAILY 12/23/19 12/23/19 History Allergy Relief] metoprolol tartrate 50 mg PO BID 12/23/19 12/23/19 History multivitamin 1 tab PO DAILY 12/23/19 12/23/19 History omega [id number]-fish oil [Fish Oil] 1 cap PO DAILY 12/23/19 12/23/19 History pravastatin 40 mg PO DAILY 12/23/19 12/23/19 History pyridoxine (vitamin B6) [Vitamin 25 mg PO DAILY 12/23/19 12/23/19 History B-6] Past Med/Surg History Medical History (Updated 12/23/19 @ 18:14 by Shelia Lundberg PA-C) CAD (coronary atherosclerotic disease) Hypercholesterolemia Hypertension Surgical History (Updated 12/23/19 @ 18:06 by Shelia Lundberg PA-C) History of ankle joint replacement Left History of bilateral total hip arthroplasty History of carpal tunnel surgery of right wrist History of cataract extraction History of colonoscopy with polypectomy History of hysterectomy History of inguinal hernia repair, bilateral History of placement of stent in LAD coronary artery Chronic CAD with s/p PCI stent to mid LAD with bare metal stent May 2001. 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 Beliefs That Will Affect Care: None marital status: Current Living Situation: Spouse current occupational status: retired Other Information That Helps Us Care for You: No other: Ambulates with a cane Feels Safe at Home: Yes Safety Concerns: Feels Safe At This Time Smoking Status: Never smoker Hx Alcohol Use: Yes Alcohol type: wine Alcohol Intake Frequency: Rarely Hx Substance Use: No Review of Systems Review of Systems: All systems reviewed & are unremarkable except as noted in HPI & below Physical Exam Physical Exam: Constitutional: WD/WN, elderly, female, vitals as above, NAD, sitting up in bed, pleasant, conversing easily Head: Normocephalic, Atraumatic Eyes: PERRL, conjunctivae normal, anicteric sclerae ENMT: external ear canal clean and dry, TMs visualized and within normal limits, and nose normal, oropharynx normal Neck: trachea midline, no thyromegaly normal visual inspection Respiratory: normal respiratory effort, lungs clear to auscultation, no wheeze, rales, rhonchi. Normal insp/exp effort, no accessory muscle use Cardiovascular: RRR, 1/6 ERICKA noted RUSB, right lower extremity lymphedema, compression stocking in place, bilateral pedal pulse +2 and equal Vessels: no JVD or carotid bruit Chest: normal inspection of chest, no chest pain to palpation Abdomen: normal bowel sounds, soft, nontender, no hepatosplenomegaly Musculoskeletal: no cyanosis or clubbing, extremities motor strength 5/5 Skin: no rashes, warm and dry normal turgor Neurologic: PERRL, EOMI, accommodation nl, no face palsy, no dysarthria CN's II-XI intact bilaterally and moves all extremities Psychiatric: A+Ox3, euthymic affect Lymphatic: no cervical or axillary lymphadenopathy : deferred Results & Data Results & Data ([facility]) Vital Signs (Past 12 Hours) Vital Signs Temp Pulse Resp BP Pulse Ox 12/23/19 16:40 78 18 93 12/23/19 16:31 66 19 139/76 98 12/23/19 16:30 72 16 94 12/23/19 16:20 65 16 99 12/23/19 16:10 72 23 97 12/23/19 16:01 72 19 177/89 H 97 12/23/19 16:00 68 21 96 12/23/19 15:50 69 17 98 12/23/19 15:48 75 17 12/23/19 15:31 74 11 L 99 12/23/19 15:30 74 14 148/87 H 98 12/23/19 15:20 75 13 96 12/23/19 15:10 73 20 96 12/23/19 15:00 72 18 99 12/23/19 14:50 81 16 95 12/23/19 14:40 76 19 98 12/23/19 14:30 72 17 96 12/23/19 14:20 77 15 97 12/23/19 14:10 79 21 99 12/23/19 14:00 73 16 98 12/23/19 13:54 122 H 26 H 12/23/19 13:31 66 19 97 12/23/19 13:30 67 22 153/87 H 99 12/23/19 13:28 72 26 H 12/23/19 12:31 62 16 95 12/23/19 12:30 59 L 22 128/70 94 12/23/19 12:20 61 18 97 12/23/19 12:10 58 L 20 93 12/23/19 12:01 56 L 14 96 12/23/19 12:00 60 20 121/68 96 12/23/19 11:50 62 21 95 12/23/19 11:42 62 22 97 12/23/19 11:37 66 25 H 143/79 H 97 12/23/19 11:36 36.7 C 66 16 143/79 H 97 Laboratory Results Short CBC 12/23/19 12/23/19 12/23/19 Range/Units 11:45 11:45 15:57 WBC 6.71 (4.8-10.8) K/uL Hgb 13.3 (12.0-16.0) g/dL Hct 40.0 (37-47) % Plt Count 281 (130-400) K/uL Troponin I < 0.015 0.122 H* (0-0.045) ng/ml BMP 12/23/19 11:45 Sodium 140 Potassium 4.4 Chloride 107 Carbon Dioxide 26 BUN 18 Creatinine 0.63 Glucose 127 H Calcium 9.1 Cardiac Enzymes 12/23/19 12/23/19 Range/Units 11:45 15:57 Troponin I < 0.015 0.122 H* (0-0.045) ng/ml Liver Function 12/23/19 Range/Units 11:45 Total Bilirubin 0.6 (0.2-1) mg/dl AST 29 (15-37) U/L ALT 26 (12-78) U/L Alkaline Phosphatase 79 (45-117) U/L Albumin 3.5 (3.4-5.0) gm/dl Diagnostic Findings Chest/Abd Xray: IMPRESSION: 1. No acute cardiopulmonary disease. 2. No radiographic evidence of acute intra-abdominal pathology. Chest CTA: IMPRESSION: 1. No acute intrathoracic findings 2. No evidence of acute pulmonary embolism 3. No evidence of focal pulmonary consolidation ECG Rate (beats per minute): 68 Rhythm: normal sinus Code Status & VTE Plan Code Status Full Code VTE Prophylaxis Plan VTE Prophylaxis will be ordered: Yes Supervising Physician Co-Signing Physician Notes Attending addendum The patient was seen and examined in emergency room She is an 84-year-old female with significant PMH of CAD with history of bare- metal stent 05/2001 to LAD, HTN, HLD, Raynauds, allergic rhinitis, chronic right lower extremity lymphedema who presents to ED with lower central chest pain associated with dizziness and sweating. 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
[2019-12-23] MEDS ORDERED: NITROGLYCERIN SL 0.4 MG/TAB TAB SL PRN (19:58)
[2019-12-23] MEDS ORDERED: ACETAMINOPHEN 325 MG TAB PO PRN (19:58)
[2019-12-23] MEDS ORDERED: ONDANSETRON INJ 2 MG/ML 2 ML VIAL IV PRN (19:58)
[2019-12-23] MEDS ORDERED: Heparin IV Low Dose *NO* Bolus IV ONE (19:58)
[2019-12-23] MEDS ORDERED: POLYETHYLENE (MIRALAX) 17 GM PACK PO PRN (19:58)
[2019-12-23] MEDS: METOPROLOL TARTRATE 50 MG TAB PO SCH (21:27)
[2019-12-23] MEDS: PRAVASTATIN SOD 40 MG TAB PO SCH (21:27)
[2019-12-24 00:55] LABS: Partial Thromboplastin Ratio 1.7
[2019-12-24 00:56] LABS: Partial Thromboplastin Time 48.7 Seconds (21.0-31.0)
[2019-12-24 03:31] LABS: Hemoglobin 13.3 g/dL (12.0-16.0); Mean Corpuscular Hemoglobin 32.2 pg (25-34); Mean Corpuscular Hgb Conc 33.3 g/dL (32-36); Mean Corpuscular Volume 96.9 fL (80-100); Mean Platelet Volume 8.6 fL (7.4-10.4); Platelet Count 243 K/uL (130-400); RDW Coefficient of Variation 13.8 % (11.5-14.5); RDW Standard Deviation 49.1 fL (36.4-46.3); Red Blood Count 4.13 M/uL (4.2-5.4); White Blood Count 5.77 K/uL (4.8-10.8)
[2019-12-24 03:57] LABS: Albumin Level 3.2 gm/dl (3.4-5.0); BUN Creatinine Ratio 30.9 (10-20); Calcium 8.4 mg/dl (8.5-10.1); Creatinine Clr Calc Pharmacy 65.7 ml/min; Est GFR (African American) 99.9; Est GFR (Non-African American) 86.2; Potassium 3.9 mmol/L (3.5-5.1)
[2019-12-24 04:10] LABS: Albumin Globulin Ratio 0.9 (0.9-2); Bilirubin,Total 0.6 mg/dl (0.2-1); Globulin 3.4 gm/dl (2.5-4.0); Partial Thromboplastin Time 55.6 Seconds (21.0-31.0); Total Protein 6.6 gm/dl (6.4-8.2); Troponin I 0.373 ng/ml (0-0.045)
[2019-12-24 05:49] LABS: Estimated Average Glucose 111 mg/dl; Hemoglobin A1C 5.5 % (4.5-5.6)
--- NOTE | 2019-12-24 07:33 | CT Scan Report ---
CT head/brain wo con CLINICAL HISTORY: 84 years-old Female presenting with confusion. TECHNIQUE: Multidetector CT imaging of the head was performed without the use of intravenous contrast . IV contrast: None. One or more dose lowering techniques were used consistent with the principles of ALARA (as low as reasonably achievable), including automatic exposure control, mA or kV adjustment t o individual patient size, and/or use of iterative reconstruction. COMPARISON: None. CT DOSE (mGy.cm): The estimated cumulative dose is 614.27 mGy.cm. 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 Proportional ventricular and sulcal prominence, likely age-related parenchymal volume loss. No hemorr quirino. Periventricular and subcortical white matter hypoattenuation, nonspecific but likely indicative of chronic small vessel ischemic change. No acute territorial infarct. No mass effect or midline samir ft. No extra-axial fluid collection. Paranasal sinuses and mastoid air cells clear. Calvarium intact. IMPRESSION: 1. Chronic small vessel ischemic change. No acute intracranial abnormality. ACT 112: Negative or not required by law. Electronically signed by: Hussein Garcia M.D. 12/24/2019 7:32 AM
[2019-12-24] MEDS: OMEGA-3 (PURIFIED FISH OIL) 1 GM CAP PO SCH (08:01)
[2019-12-24] MEDS: PYRIDOXINE HCL 50 MG TAB PO SCH (08:01)
[2019-12-24] MEDS: METOPROLOL TARTRATE 50 MG TAB PO SCH ×2 (08:01→19:58)
[2019-12-24] MEDS: ASPIRIN 81 MG ECTAB PO SCH (08:02)
[2019-12-24] MEDS: MULTIVITAMIN TAB PO SCH (08:02)
[2019-12-24] MEDS: FLUTICASONE PROPIONATE NA SPR 16 GM BTL NAE SCH (08:02)
[2019-12-24] MEDS ORDERED: PRAVASTATIN SOD 40 MG TAB PO SCH (09:00)
[2019-12-24] MEDS ORDERED: NON-FORMULARY MEDICATION (Coenzyme Q10 [Coq-10] 100 MG) PO SCH (09:00)
--- NOTE | 2019-12-24 09:36 | Electrocardiogram Report ---
Test Reason : Blood Pressure : / mmHG Vent. Rate : 064 BPM Atrial Rate : 064 BPM P-R Int : 174 ms QRS Dur : 078 ms QT Int : 428 ms P-R-T Axes : 077 -06 063 degrees QTc Int : 441 ms Normal sinus rhythm Normal ECG When compared with ECG of 23-DEC-2019 11:36, Premature atrial complexes are no longer Present Confirmed by Efrain Howe ([id number]) on 12/24/2019 9:36:30 AM Referred By: REFERRED SELF Confirmed By:Efrain Howe
--- NOTE | 2019-12-24 10:07 | Pre Anesthesia Assessment ---
Date of Service December 24, 2019 Pre Sedation Assessment Vital Signs Temp Pulse Pulse Resp BP BP Pulse Ox 12/24/19 07:38 36.5 C 68 18 124/82 97 12/24/19 03:45 36.5 C 68 17 141/75 H 96 0520 23:51 68 050520 22:59 36.7 C 61 18 112/62 95 050520 19:58 36.3 C L 70 16 134/80 99 0505 19:20 67 25 H 97 0520 19:10 65 18 96 050520 19:01 67 23 96 05/0520 19:00 72 18 140/78 97 05 18:50 65 19 97 050520 18:40 66 19 96 0505 18:33 78 17 95 050520 18:00 79 14 152/91 H 05 17:50 65 23 95 05/05/20 17:40 66 21 97 050520 17:30 66 15 163/86 H 97 05 17:20 65 13 96 050520 17:10 69 16 0505 17:01 62 18 98 05/0520 17:00 68 16 147/87 H 97 0520 16:50 72 21 98 050520 16:40 78 18 93 050520 16:31 66 19 139/76 98 05/05/20 16:30 72 16 94 05/05/20 16:20 65 16 99 05/05/20 16:10 72 23 97 050520 16:01 72 19 177/89 H 97 050520 16:00 68 21 96 05/0520 15:50 69 17 98 05/05/20 15:48 75 17 05/05/20 15:31 74 11 L 99 05/0520 15:30 74 14 148/87 H 98 0520 15:20 75 13 96 05/05/20 15:10 73 20 96 05/05/20 15:00 72 18 99 05/05/20 14:50 81 16 95 05/05/20 14:40 76 19 98 05/05/20 14:30 72 17 96 05/05/20 14:20 77 15 97 05/05/20 14:10 79 21 99 12/23/19 14:00 73 16 98 12/23/19 13:54 122 H 26 H 12/23/19 13:31 66 19 97 12/23/19 13:30 67 22 153/87 H 99 12/23/19 13:28 72 26 H 12/23/19 12:31 62 16 95 12/23/19 12:30 59 L 22 128/70 94 12/23/19 12:20 61 18 97 12/23/19 12:10 58 L 20 93 12/23/19 12:01 56 L 14 96 12/23/19 12:00 60 20 121/68 96 12/23/19 11:50 62 21 95 12/23/19 11:42 62 22 97 12/23/19 11:37 66 25 H 143/79 H 97 12/23/19 11:36 36.7 C 66 16 143/79 H 97 Cardiovascular RRR, no murmur, no edema no palpable S3 no JVD Respiratory normal respiratory effort, lungs clear to auscultation Pre-Sedation Airway Assessment Smoking Status: Never smoker Hx Sleep Apnea: No Hx Difficult Intubation: No Short, Thick Neck: No Mallampati Class: II ASA: ASA3 NPO Status Date of Last Intake of Fluids: 12/23/19 Date of Last Intake of Solid Food: 12/23/19 Procedure Planning Contraindications for Sedation: none Current Medications Reviewed: Yes Notes The planned sedation has been discussed with the patient. Informed Consent was obtained. I have identified the patient, determined the appropriateness of sedation and have assessed the patient immediately prior to the procedure. All medicine(s) and interventions are by my order.
--- NOTE | 2019-12-24 10:10 | Cardiology Consultation ---
Date of Consultation December 24, 2019 Assessment & Plan (1) Non-ST elevation MO (NSTEMI): Patient is an 84-year-old female with known coronary disease and remote coronary intervention 2000 previously stable class I2 angina pectoris who developed sudden onset chest pressure at modest level exertion yesterday. Symptoms resolved with aspirin and nitroglycerin gradually. No acute ST changes or EKG evolution however troponins elevated and waxed and waned consistent non- ST segment elevation myocardial infarction. Patient on aspirin beta-se and statin. Prior noted THAD and Arb intolerant. Echocardiogram reveals hypokinesis of the anterior septum inferoseptum and inferior wall at the apex. Findings do appear consistent with prior echocardiograms and overall systolic function preserved. Discussed findings in detail with the patient and recommended diagnostic cardiac catheterization. Procedure and risks explained in detail to the patient patient agreeable (2) CAD (coronary atherosclerotic disease): History of Present Illness Reason for Consultation: Non-ST segment elevation myocardial infarction Requesting Physician: Dr Whaley Attending Physician: Deo Morris MD History of Present Illness Patient is an 84-year-old female whose history is notable for 1. Atherosclerotic coronary disease status post anteroapical myocardial infarction 2000 treated initially with thrombolytic therapy followed by bare- metal stent to the mid left anterior descending 2. Stable class II angina pectoris 3. Hyperlipidemia 4. Chronic lymphedema Patient presents this admission having developed sudden onset of 5/10 bandlike chest pressure below her breasts while performing moderate exertional activity, cleaning a shower. Symptoms were associated with transient diaphoresis and patient was treated with aspirin and sublingual nitroglycerin with complaints re solving prior to ER presentation. Initial EKGs and cardiac enzymes negative however second troponin trended higher with evolution pattern overnight. Patient appropriately anticoagulated. No cardiac complaints this morning denies chest pain shortness of breath tachypalpitations syncope or near syncope. Patient has been aware of some increasing fatigue and exertional dyspnea over the last 1 to 2 months per her description. No fevers chills or unexplained infections. No bleeding difficulties. No melena medication dysuria hematuria. Appetite and weight have been stable. No difficulty swallowing or taking medications. No cough hoarseness wheeze or hemoptysis. Mild sinus drainage this morning. Allergies Allergy/AdvReac Type Severity Reaction Status Date / Time THAD Inhibitors Allergy Intermediate RASH Verified 12/23/19 12:53 adhesive Allergy Unknown TAPES-REDNESS Verified 12/23/19 12:53 RASH-STICKY TAPE amoxicillin Allergy Unknown RASH Verified 12/23/19 12:53 latex Allergy Unknown RED HANDS Verified 12/23/19 12:53 WITH GLOVES losartan Allergy Unknown RASH-GI Verified 12/23/19 12:53 UPSET Penicillins Allergy Unknown RASH Verified 12/23/19 12:53 Cipro AdvReac Severe "sick" Verified 02/19/18 07:40 ciprofloxacin AdvReac Severe "sick" Verified 12/23/19 12:53 morphine AdvReac Mild vOMITING Verified 12/23/19 12:53 Home Medications Home Medications Medication Instructions Recorded Confirmed Type aspirin [Aspir-81] 81 mg PO DAILY 12/23/19 12/23/19 History coenzyme Q10 [CoQ-10] 100 mg PO DAILY 12/23/19 12/23/19 History fluticasone propionate [Flonase 2 spray INTRANASAL DAILY 12/23/19 12/23/19 History Allergy Relief] metoprolol tartrate 50 mg PO BID 12/23/19 12/23/19 History multivitamin 1 tab PO DAILY 12/23/19 12/23/19 History omega 1-ipf-ofv-fish oil [Fish Oil] 1 cap PO DAILY 12/23/19 12/23/19 History pravastatin 40 mg PO DAILY 12/23/19 12/23/19 History pyridoxine (vitamin B6) [Vitamin 25 mg PO DAILY 12/23/19 12/23/19 History B-6] Patient History Medical History CAD (coronary atherosclerotic disease) Hypercholesterolemia Hypertension Surgical History History of ankle joint replacement Left History of bilateral total hip arthroplasty History of carpal tunnel surgery of right wrist History of cataract extraction History of colonoscopy with polypectomy History of hysterectomy History of inguinal hernia repair, bilateral History of placement of stent in LAD coronary artery Chronic CAD with s/p PCI stent to mid LAD with bare metal stent May 2001. 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 History of shoulder surgery Family History Mother , at 89 Asthma Father , 100 Prostate cancer Social History Preferred Language: Malay Communication Ability: Effective Precision Millwright Required: No Beliefs That Will Affect Care: None marital status: Current Living Situation: Spouse current occupational status: retired Other Information That Helps Us Care for You: No other: Ambulates with a cane Feels Safe at Home: Yes Safety Concerns: Feels Safe At This Time Smoking Status: Never smoker Hx Alcohol Use: Yes Alcohol type: wine Alcohol Intake Frequency: Rarely Hx Substance Use: No Physical Exam Constitutional: WD/WN, vitals as above Eyes: PERRL, conjunctivae normal, anicteric sclerae ENMT: external ear and nose normal, oropharynx normal Neck: trachea midline, no thyromegaly Respiratory: normal respiratory effort, lungs clear to auscultation Cardiovascular: Rate/Rhythm: regular rate and regular rhythm Heart Sounds: normal S1 and normal S2; no gallop and no murmur Palpation: normal PMI Vessels: normal carotid upstroke and radial pulses present; no JVD and no carotid bruit Extremities: no edema Gastrointestinal (Abdomen): normal bowel sounds, soft, nontender, no hepatospl enomegaly Musculoskeletal: no cyanosis or clubbing, extremities motor strength 5/5 Mild lymphedematous changes Skin: no rashes, warm and dry Neurologic: PERRL, EOMI, accommodation nl, no face palsy, no dysarthria Psychiatric: A+Ox3, euthymic affect Results & Data ([facility]) Vital Signs (Past 12 Hours) Vital Signs Temp Pulse Pulse Resp BP Pulse Ox 12/24/19 07:38 36.5 C 68 18 124/82 97 12/24/19 03:45 36.5 C 68 17 141/75 H 96 12/23/19 23:51 68 12/23/19 22:59 36.7 C 61 18 112/62 95 Laboratory Results Laboratory Results - last 24 hr 12/23/19 12/23/19 12/23/19 11:45 11:45 11:45 WBC 6.71 RBC 4.06 L Hgb 13.3 Hct 40.0 MCV 98.5 MCH 32.8 MCHC 33.3 RDW Std Deviation 48.6 H RDW Coeff of Damon 13.6 Plt Count 281 MPV 8.8 Immature Gran % (Auto) 0.3 Neut % (Auto) 49.5 Lymph % (Auto) 38.3 Dillon % (Auto) 8.6 Eos % (Auto) 3.0 Baso % (Auto) 0.3 Immature Gran # (Auto) 0.02 Neut # (Auto) 3.32 Lymph # (Auto) 2.57 Dillon # (Auto) 0.58 Eos # (Auto) 0.20 Baso # (Auto) 0.02 APTT PTT Ratio D-Dimer 900 H* Sodium 140 Potassium 4.4 Chloride 107 Carbon Dioxide 26 Anion Gap 6.0 BUN 18 Creatinine 0.63 Est Cr Clr Drug Dosing 63.3 Est GFR ( Amer) 96.1 Est GFR (Non-Af Amer) 82.9 BUN/Creatinine Ratio 28.2 H Glucose 127 H Estimat Average Glucose Hemoglobin A1c Calcium 9.1 Magnesium 2.0 Total Bilirubin 0.6 AST 29 ALT 26 Alkaline Phosphatase 79 Troponin I < 0.015 NT-Pro-B Natriuret Pep 74 Total Protein 7.0 Albumin 3.5 Globulin 3.5 Albumin/Globulin Ratio 1.0 Triglycerides Cholesterol LDL Cholesterol, Calc VLDL Cholesterol, Calc HDL Cholesterol Cholesterol/HDL Ratio Lipase 74 TSH 2.920 Specimen Hemolysis 12/23/19 12/23/19 12/23/19 11:45 15:57 21:15 WBC RBC Hgb Hct MCV MCH MCHC RDW Std Deviation RDW Coeff of Damon Plt Count MPV Immature Gran % (Auto) Neut % (Auto) Lymph % (Auto) Dillon % (Auto) Eos % (Auto) Baso % (Auto) Immature Gran # (Auto) Neut # (Auto) Lymph # (Auto) Dillon # (Auto) Eos # (Auto) Baso # (Auto) APTT 24.2 PTT Ratio 0.9 D-Dimer Sodium Potassium Chloride Carbon Dioxide Anion Gap BUN Creatinine Est Cr Clr Drug Dosing Est GFR ( Amer) Est GFR (Non-Af Amer) BUN/Creatinine Ratio Glucose Estimat Average Glucose Hemoglobin A1c Calcium Magnesium Total Bilirubin AST ALT Alkaline Phosphatase Troponin I 0.122 H* 0.436 H* NT-Pro-B Natriuret Pep Total Protein Albumin Globulin Albumin/Globulin Ratio Triglycerides Cholesterol LDL Cholesterol, Calc VLDL Cholesterol, Calc HDL Cholesterol Cholesterol/HDL Ratio Lipase TSH Specimen Hemolysis 12/24/19 12/24/19 12/24/19 00:26 03:15 03:15 WBC 5.77 RBC 4.13 L Hgb 13.3 Hct 40.0 MCV 96.9 MCH 32.2 MCHC 33.3 RDW Std Deviation 49.1 H RDW Coeff of Damon 13.8 Plt Count 243 MPV 8.6 Immature Gran % (Auto) Neut % (Auto) Lymph % (Auto) Dillon % (Auto) Eos % (Auto) Baso % (Auto) Immature Gran # (Auto) Neut # (Auto) Lymph # (Auto) Dillon # (Auto) Eos # (Auto) Baso # (Auto) APTT 48.7 H* PTT Ratio 1.7 D-Dimer Sodium 144 Potassium 3.9 Chloride 111 H Carbon Dioxide 29 Anion Gap 4.0 BUN 17 Creatinine 0.56 L Est Cr Clr Drug Dosing 65.7 Est GFR ( Amer) 99.9 Est GFR (Non-Af Amer) 86.2 BUN/Creatinine Ratio 30.9 H Glucose 99 Estimat Average Glucose Hemoglobin A1c Calcium 8.4 L Magnesium Total Bilirubin 0.6 AST 36 ALT 52 Alkaline Phosphatase 73 Troponin I 0.373 H* NT-Pro-B Natriuret Pep Total Protein 6.6 Albumin 3.2 L Globulin 3.4 Albumin/Globulin Ratio 0.9 Triglycerides 54 Cholesterol 147 LDL Cholesterol, Calc 71 VLDL Cholesterol, Calc 11 HDL Cholesterol 65 Cholesterol/HDL Ratio 2 Lipase TSH Specimen Hemolysis 12/24/19 12/24/19 12/24/19 03:15 03:15 09:17 WBC RBC Hgb Hct MCV MCH MCHC RDW Std Deviation RDW Coeff of Damon Plt Count MPV Immature Gran % (Auto) Neut % (Auto) Lymph % (Auto) Dillon % (Auto) Eos % (Auto) Baso % (Auto) Immature Gran # (Auto) Neut # (Auto) Lymph # (Auto) Dillon # (Auto) Eos # (Auto) Baso # (Auto) APTT 55.6 H* PTT Ratio 2.0 D-Dimer Sodium Potassium Chloride Carbon Dioxide Anion Gap BUN Creatinine Est Cr Clr Drug Dosing Est GFR ( Amer) Est GFR (Non-Af Amer) BUN/Creatinine Ratio Glucose Estimat Average Glucose 111 Hemoglobin A1c 5.5 Calcium Magnesium Total Bilirubin AST ALT Alkaline Phosphatase Troponin I Pending NT-Pro-B Natriuret Pep Total Protein Albumin Globulin Albumin/Globulin Ratio Triglycerides Cholesterol LDL Cholesterol, Calc VLDL Cholesterol, Calc HDL Cholesterol Cholesterol/HDL Ratio Lipase TSH Specimen Hemolysis Diagnostic Findings Echocardiogram 12/24/2019 Mild hypokinesis of the apical inferior wall and septum EF 55 to 60%
[2019-12-24] MEDS ORDERED: SODIUM CHLORIDE 0.9% 1000ML 1,000 ML IV SCH ×2 (10:15→12:00)
[2019-12-24] MEDS ORDERED: MIDAZOLAM HCL 1 MG/ML 2ML VIAL ONE (10:32)
[2019-12-24] MEDS ORDERED: HEPARIN (PORCINE) 1000 UNIT/ML 10 ML (CATH LAB USE ONLY) ONE (10:32)
[2019-12-24] MEDS ORDERED: NiCARDipine HCL INJ 2.5 MG/ML 10 ML AMP ONE (10:32)
[2019-12-24] MEDS ORDERED: fentaNYL citrate 100 MCG/2 ML VIAL ONE (10:32)
[2019-12-24] MEDS ORDERED: NITROGLYCERIN/D5W 100MCG/ML 20ML SYR ONE (10:33)
--- NOTE | 2019-12-24 11:43 | Cardiac Catheterization ---
Cardiac Cath Procedure Brief Procedure Date December 24, 2019 Pre-Procedure Diagnosis Pre-Procedure Diagnosis: Non STEMI AUC Score AUC Score: 8 Post-Procedure Diagnosis Post-Procedure Diagnosis: Severe CAD (Subtotal occlusion circumflex AV groove prior to moderate PL branch) Procedure(s) Performed Procedure(s) Performed: Coronary Angiography and Left Heart Cath Instructor Decorating Abdiaziz Gomes MD Auto Air Conditioning Mechanic(s) Chente Jarrell Estimated Blood Loss Estimated Blood Loss: <20 Medication(s) Medication(s): Fentanyl (12.5 mcg IV), Heparin (5000 units IV), Lidocaine 1% (Local infiltration access site), Nicardipine (250 mcg intra-arterial after arterial sheath insertion and prior to removal) and Nitroglycerin (0.4 mg sublingually) Preliminary Findings Right dominant coronary anatomy Culprit lesion subtotal occlusion left circumflex AV groove small area distribution Left main: Normal length and caliber and mild calcification but no obstruction Left anterior descending: Type III distribution vessel. Gives rise to a large diagonal branch at the end of its proximal third and courses to terminate beyond the apex. There is a long area of extensive stenting within its proximal and midportion encompassing the origin of the diagonal branch. There is mild in- stent narrowing of 20 to 30%. The left anterior descending has a long area of 40 to 50% narrowing in its mid and apical segments beyond the stented segment but no high-grade obstruction. Left circumflex: Moderately large but nondominant. Gives rise to a large bifurcating obtuse marginal and turns along the AV groove. Within the AV groove portion the vessel has a subtotal occlusion prior to a small to moderate posterior lateral branch. The posterior lateral branch may be seen filling via left to left collaterals. Left circumflex otherwise has mild luminal irregularities Right coronary artery: Moderate in caliber dominant distribution. Gives rise to 2 right ventricular branches in its midportion along posterior descending artery at the AV groove then along the AV groove a single long posterior ventricular branch. There is mild luminal irregularities in the right coronary distribution. LV: Angiography not performed Impression:1. Culprit vessel small AV groove portion of the left circumflex with subtotal occlusion 2. Patent left anterior descending stent 3. Mild to moderate diffuse coronary atherosclerosis Recommendations Recommendations: Medical Therapy and/or Counseling Specimens Specimens: None Fluids (cc crystalloids) Fluids (cc crystalloids): 100 Anesthesia Start time: 1056, stop time: 1132 Gaston Vincent, RN Procedural Complication(s) None Disposition Recovery Room\PACU
[2019-12-24] MEDS ORDERED: NITROGLYCERIN SL 0.4 MG/TAB TAB SL PRN (11:57)
--- NOTE | 2019-12-24 12:03 | Cardiac Catheterization ---
Cardiac Cath Procedure Full Procedure Date December 24, 2019 Pre-Procedure Diagnosis Pre-Procedure Diagnosis: Non STEMI AUC Score AUC Score: 8 Post-Procedure Diagnosis Post-Procedure Diagnosis: Severe CAD (Subtotal occlusion circumflex AV groove prior to moderate PL branch) Procedure(s) Performed Procedure(s) Performed: Coronary Angiography and Left Heart Cath Silk Screen Frame Assembler Abdiaziz Gomes MD Team Psychologist(s) Chente Jarrell Estimated Blood Loss Estimated Blood Loss: <20 Medication(s) Medication(s): Fentanyl (12.5 mcg IV), Heparin (5000 units IV), Lidocaine 1% (Local infiltration access site), Nicardipine (250 mcg intra-arterial after arterial sheath insertion and prior to removal) and Nitroglycerin (0.4 mg sublingually) Summary of Findings Right dominant coronary anatomy Culprit lesion subtotal occlusion left circumflex AV groove small area distribution Left main: Normal length and caliber and mild calcification but no obstruction Left anterior descending: Type III distribution vessel. Gives rise to a large diagonal branch at the end of its proximal third and courses to terminate beyond the apex. There is a long area of extensive stenting within its proximal and midportion encompassing the origin of the diagonal branch. There is mild in- stent narrowing of 20 to 30%. The left anterior descending has a long area of 40 to 50% narrowing in its mid and apical segments beyond the stented segment but no high-grade obstruction. Left circumflex: Moderately large but nondominant. Gives rise to a large bifurcating obtuse marginal and turns along the AV groove. Within the AV groove portion the vessel has a subtotal occlusion prior to a small to moderate posterior lateral branch. The posterior lateral branch may be seen filling via left to left collaterals. Left circumflex otherwise has mild luminal irregularities Right coronary artery: Moderate in caliber dominant distribution. Gives rise to 2 right ventricular branches in its midportion along posterior descending artery at the AV groove then along the AV groove a single long posterior ventricular branch. There is mild luminal irregularities in the right coronary distribution. LV: Angiography not performed Impression:1. Culprit vessel small AV groove portion of the left circumflex with subtotal occlusion 2. Patent left anterior descending stent 3. Mild to moderate diffuse coronary atherosclerosis Hemodynamics Rest Ao:: 166/81/118 Final Ao: 168/77/117 LV: Recommendations Recommendations: Medical Therapy and/or Counseling Specimens Specimens: None Radiation Exposure (mGy) 208 Contrast (mls) 80 Fluids (cc crystalloids) Fluids (cc crystalloids): 100 Anesthesia Start time: 1056, stop time: 1132 Gaston Vincent RN Procedural Complication(s) None Disposition Recovery Room\PACU I attest to the content of the Intraoperative Record and any orders documented therein. Any exceptions are noted below. ACC Data: Glass Unloading Equipment Tender Cardiac Status Clinical evaluation leading to the procedure 84-year-old with known coronary disease with prior extensive left anterior descending stenting status post acute anteroapical myocardial infarction 2000 admitted with acute onset chest pain relieved by aspirin and sublingual nitroglycerin. Echocardiogram with new inferoapical wall motion abnormality, chronic mild apical septal wall motion CAD Presenation: Non STEMI and Unstable angina Heart Failure: No Cardiogenic Shock within 24 Hours: No Imaging Studies Past 6 Months: Yes Stress Studies Past 6 Months: No Standard Exercise Test: No Stress Echocardiogram: No Stress Testing w/SPECT MPI: No Cardiac CTA: No STEMI OR Non-STEMI Symptom Onset Date: 12/23/19 Symptom Onset Time: 09:55 Thrombolytics: No Coronary Anatomy Dominant: Right Left Main (% Stenosis): Normal LAD (% Stenosis): Mid (Widely patent stent with 20 to 30% in-stent narrowing) and Distal (Long 40-50) D1 (% Stenosis): Normal Circumflex (% Stenosis): Distal (Subtotal 100% AV groove 4) OM1 (% Stenosis): Normal L PL1 (% Stenosis): Mid (Fills via left to left collateral) RCA (% Stenosis): Proximal (20) R PDA (% Stenosis): Normal R PL1 (% Stenosis): Normal Left Ventricular Angiography EF (%): N/A Diagnostic Physicians Name: Abdiaziz Gomes MD Status: Urgent Closure Device Percutaneous Entry Location: Radial Closure Device: Radial Band Recommendations: Medical Therapy and/or Counseling
[2019-12-24] MEDS: ISOSORBIDE MONO EXTENDED REL 30 MG TABCR PO SCH (12:47)
--- NOTE | 2019-12-24 19:21 | Hospitalist Progress Note ---
Date of Service December 24, 2019 Assessment & Plan (1) Atypical chest pain: (2) Non-ST elevation ND (NSTEMI): per admitting service notes: This is an 84-year-old female who has significant PMH of CAD with history of bare-metal stent 05/2001 to LAD, HTN, HLD, Raynauds, allergic rhinitis, chronic right lower extremity lymphedema who presents to ED secondary to chest pain x1 hour prior to arrival. Patient presents with atypical chest pain and relieved upon arrival. Initial work-up revealed EKG normal sinus rhythm without ST or T wave change for troponin WNL, CBC and CMP relatively unremarkable. Repeat troponin was elevated at 0.122. She continues to remain asymptomatic and chest pain free. Prior to arrival she did take nitroglycerin and 2 baby aspirin. s/p Cardiac Cath 12/24/19: Impression:1. Culprit vessel small AV groove portion of the left circumflex with subtotal occlusion 2. Patent left anterior descending stent 3. Mild to moderate diffuse coronary atherosclerosis Echo: Echocardiogram reveals hypokinesis of the anterior septum inferoseptum and inferior wall at the apex. Findings do appear consistent with prior echocardiograms and overall systolic function preserved. continue medical management including ASA, Metoprolol, Imdur, Pravastatin (3) CAD (coronary atherosclerotic disease): management per above (4) Hypertension: Blood pressure stable overall Continue metoprolol (5) Hypercholesterolemia: LDL 71 continue Pravastatin (6) DVT prophylaxis: was on IV heparin SCDs ordered possible d/c home tomorrow Admission and Anticipated Discharge Date Admission Date: December 23, 2019 Subjective ff up for chest pain seen resting in bed, sitting up not in distress, comfortable states she feels fine overall no recurrence of chest pain since admission no dyspnea, palpitations, dizziness no other symptoms Review of Systems Review of Systems: All systems reviewed & are unremarkable except as noted in HPI & below Physical Exam Physical Exam: General- oriented x 3, not in distress, speaks in sentences with no effort or accessory muscle use Head- atraumatic Eyes- PERRL, EOMI, anicteric ENT- oropharynx clear Neck- supple, no JVD, no adenopathy, no thyromegaly; carotids +2/2, no bruits appreciated Lungs- clear to auscultation bilaterally, no rales/wheezes Heart- normal rate, regular rhythm; no murmur, no gallop, no rub appreciated Abdomen- normal bowel sounds, nondistended, soft, nontender, no masses or hepatosplenomegaly Extremities- no pretibial edema, no calf tenderness; peripheral pulses intact Neuro- alert, oriented x 3; CN 2-12 grossly intact; motor 5/5 bilaterally;sensation 100% on all extremities; no other gross focal neurologic deficits Skin- warm & dry Results & Data Results & Data ([facility]) Vital Signs (Past 12 Hours) Vital Signs Temp Pulse Resp BP Pulse Ox 12/24/19 19:07 36.6 C 75 18 95/56 L 94 12/24/19 17:12 36.8 C 81 20 118/68 98 12/24/19 16:12 37.5 C 83 20 135/65 97 12/24/19 15:12 36.9 C 85 20 120/68 99 12/24/19 15:09 36.6 C 71 18 104/61 95 12/24/19 14:12 36.8 C 90 20 124/68 98 12/24/19 13:12 36.8 C 67 20 121/71 98 12/24/19 12:42 36.7 C 72 20 124/68 97 12/24/19 12:12 36.8 C 62 20 119/69 96 12/24/19 12:00 36.8 C 67 20 105/67 98 12/24/19 11:57 36.5 C 78 20 107/64 96 12/24/19 07:38 36.5 C 68 18 124/82 97 Laboratory Results Laboratory Results - last 24 hr 12/23/19 12/24/19 12/24/19 21:15 00:26 03:15 WBC 5.77 RBC 4.13 L Hgb 13.3 Hct 40.0 MCV 96.9 MCH 32.2 MCHC 33.3 RDW Std Deviation 49.1 H RDW Coeff of Damon 13.8 Plt Count 243 MPV 8.6 APTT 48.7 H* PTT Ratio 1.7 Sodium Potassium Chloride Carbon Dioxide Anion Gap BUN Creatinine Est Cr Clr Drug Dosing Est GFR ( Amer) Est GFR (Non-Af Amer) BUN/Creatinine Ratio Glucose Estimat Average Glucose Hemoglobin A1c Calcium Total Bilirubin AST ALT Alkaline Phosphatase Troponin I 0.436 H* Total Protein Albumin Globulin Albumin/Globulin Ratio Triglycerides Cholesterol LDL Cholesterol, Calc VLDL Cholesterol, Calc HDL Cholesterol Cholesterol/HDL Ratio 12/24/19 12/24/19 12/24/19 03:15 03:15 03:15 WBC RBC Hgb Hct MCV MCH MCHC RDW Std Deviation RDW Coeff of Damon Plt Count MPV APTT 55.6 H* PTT Ratio 2.0 Sodium 144 Potassium 3.9 Chloride 111 H Carbon Dioxide 29 Anion Gap 4.0 BUN 17 Creatinine 0.56 L Est Cr Clr Drug Dosing 65.7 Est GFR ( Amer) 99.9 Est GFR (Non-Af Amer) 86.2 BUN/Creatinine Ratio 30.9 H Glucose 99 Estimat Average Glucose 111 Hemoglobin A1c 5.5 Calcium 8.4 L Total Bilirubin 0.6 AST 36 ALT 52 Alkaline Phosphatase 73 Troponin I 0.373 H* Total Protein 6.6 Albumin 3.2 L Globulin 3.4 Albumin/Globulin Ratio 0.9 Triglycerides 54 Cholesterol 147 LDL Cholesterol, Calc 71 VLDL Cholesterol, Calc 11 HDL Cholesterol 65 Cholesterol/HDL Ratio 2 12/24/19 09:17 WBC RBC Hgb Hct MCV MCH MCHC RDW Std Deviation RDW Coeff of Damon Plt Count MPV APTT PTT Ratio Sodium Potassium Chloride Carbon Dioxide Anion Gap BUN Creatinine Est Cr Clr Drug Dosing Est GFR ( Amer) Est GFR (Non-Af Amer) BUN/Creatinine Ratio Glucose Estimat Average Glucose Hemoglobin A1c Calcium Total Bilirubin AST ALT Alkaline Phosphatase Troponin I 0.215 H* Total Protein Albumin Globulin Albumin/Globulin Ratio Triglycerides Cholesterol LDL Cholesterol, Calc VLDL Cholesterol, Calc HDL Cholesterol Cholesterol/HDL Ratio
[2019-12-24] MEDS: PRAVASTATIN SOD 40 MG TAB PO SCH (19:58)
[2019-12-25 06:01] LABS: Partial Thromboplastin Time 26.8 Seconds (21.0-31.0)
--- NOTE | 2019-12-25 08:15 | Electrocardiogram Report ---
Test Reason : Blood Pressure : / mmHG Vent. Rate : 079 BPM Atrial Rate : 079 BPM P-R Int : 174 ms QRS Dur : 076 ms QT Int : 378 ms P-R-T Axes : 078 -16 064 degrees QTc Int : 433 ms Normal sinus rhythm Normal ECG When compared with ECG of 24-DEC-2019 07:04, No significant change was found Confirmed by Efrain Howe ([id number]) on 12/25/2019 8:14:38 AM Referred By: REFERRED SELF Confirmed By:Efrain Howe
[2019-12-25 09:41] LABS: BUN Creatinine Ratio 42.4 (10-20); Calcium 8.2 mg/dl (8.5-10.1); Creatinine Clr Calc Pharmacy 81.8 ml/min; Est GFR (African American) 107.4; Est GFR (Non-African American) 92.7; Potassium 3.7 mmol/L (3.5-5.1)
[2019-12-25] MEDS: PYRIDOXINE HCL 50 MG TAB PO SCH (09:53)
[2019-12-25] MEDS: ASPIRIN 81 MG ECTAB PO SCH (09:54)
[2019-12-25] MEDS: MULTIVITAMIN TAB PO SCH (09:54)
[2019-12-25] MEDS: FLUTICASONE PROPIONATE NA SPR 16 GM BTL NAE SCH (09:54)
[2019-12-25] MEDS: METOPROLOL TARTRATE 50 MG TAB PO SCH (09:54)
[2019-12-25] MEDS: ISOSORBIDE MONO EXTENDED REL 30 MG TABCR PO SCH (09:54)
[2019-12-25] MEDS: OMEGA-3 (PURIFIED FISH OIL) 1 GM CAP PO SCH (09:54)
[2019-12-25 10:25] LABS: Appearance Urine Clear (Clear); Bilirubin Urine Negative (Negative); Blood Urine Negative (Negative); Color Urine Yellow; Glucose Urine UA Negative (Negative); Ketones Urine Negative (Negative); Leukocyte Esterase Urine Negative (Negative); Nitrite Urine Negative (Negative); Protein Urine Negative (Negative); Specific Gravity Urine 1.015 (1.000-1.030); Urobilinogen Urine Negative (Negative); pH Urine 5.5 (4.5-7.5)
--- NOTE | 2019-12-25 12:33 | Cardiology Progress Note ---
Date of Service December 25, 2019 Assessment & Plan (1) Non-ST elevation OR (NSTEMI): Patient is an 84-year-old female with known coronary disease and remote coronary intervention 2001 previously stable class I2 angina pectoris who developed sudden onset chest pressure at modest level exertion yesterday. Symptoms resolved with aspirin and nitroglycerin gradually. No acute ST changes or EKG evolution however troponins elevated and waxed and waned consistent non- ST segment elevation myocardial infarction. Patient on aspirin beta-se and statin. Prior noted THAD and Arb intolerant. Echocardiogram reveals hypokinesis of the anterior septum inferoseptum and inferior wall at the apex. Findings do appear consistent with prior echocardiograms and overall systolic function preserved. Cardiac catheterization was performed and demonstrated subtotal circumflex occlusion as culprit lesion. Long thin vessel with a small area of distribution Plan medical management. Continue metoprolol aspirin statin with addition of oral nitrates If ambulatory and stable may be discharged today (2) CAD (coronary atherosclerotic disease): Subjective Patient seen and examined, chart, medications, telemetry reviewed. Patient feeling well no acute complaints overnight no chest pain or shortness of breath. Prior delirium notable on initial admission has resolved. No fevers chills or cough Right radial access healing well Physical Exam Constitutional: WD/WN, vitals as above Eyes: PERRL, conjunctivae normal, anicteric sclerae ENMT: Mallampati Class: II Neck: trachea midline, no thyromegaly Respiratory: normal respiratory effort, lungs clear to auscultation Cardiovascular: RRR, no murmur, no edema Rate/Rhythm: regular rate and regular rhythm Heart Sounds: normal S1 and normal S2; no gallop and no murmur Palpation: normal PMI; S3 nonpalpable Vessels: normal carotid upstroke and radial pulses present; no JVD and no carotid bruit Extremities: no edema Gastrointestinal (Abdomen): normal bowel sounds, soft, nontender, no hepatosplenomegaly Musculoskeletal: no cyanosis or clubbing, extremities motor strength 5/5 Skin: no rashes, warm and dry Neurologic: PERRL, EOMI, accommodation nl, no face palsy, no dysarthria Psychiatric: A+Ox3, euthymic affect Results & Data Vital Signs (Past 12 Hours) Vital Signs Temp Pulse Pulse Resp BP BP Pulse Ox 12/25/19 11:09 36.4 C L 68 18 98/62 L 94 12/25/19 07:36 36.4 C L 74 19 123/64 95 12/25/19 03:23 36.5 C 75 16 107/54 L 94
--- NOTE | 2019-12-25 14:20 | Ultrasound Report ---
US venous doppler LE BI CLINICAL HISTORY: 84 years-old Female presenting with elevated d dimer, bilateral lower extremity lym phedema, r/o dvt. TECHNIQUE: Real-time grayscale and color and spectral Doppler ultrasound imaging of the veins of the bilateral lower extremities was performed. Compression and augmentation were also utilized. COMPARISON: 05/26/2017. FINDINGS: RIGHT: Common femoral vein: Patent. Greater saphenous vein (superficial): Patent. Deep femoral vein: Patent. Femoral vein: Patent. Popliteal vein: Patent. Calf veins: Patent. LEFT: Common femoral vein: Patent. Greater saphenous vein (superficial): Patent. Deep femoral vein: Patent. Femoral vein: Patent. Popliteal vein: Patent. Calf veins: Patent. Other: None. IMPRESSION: No evidence of deep venous thrombosis. ACT 112: Negative or not required by law. Electronically signed by: Hussein Garcia M.D. 12/25/2019 2:19 PM
--- NOTE | 2019-12-25 16:04 | Discharge Summary ---
Date of Service December 25, 2019 Admission HPI Per Admitting Provider This is an 84-year-old female who has significant PMH of CAD with history of bare-metal stent 05/2001 to LAD, HTN, HLD, Raynauds, allergic rhinitis, chronic right lower extremity lymphedema who presents to ED secondary to chest pain x1 hour prior to arrival. She elicits she did her usual routine this morning had coffee and ate breakfast. Afterwards she went upstairs to take a shower when she noticed that the shower needing cleaned. She started to clean the shower with a broom and developed chest pain underneath bilateral breasts. Pain was nonradiating, rated 5/10, improved after administration of 2 baby aspirin and nitro, nothing made worse, associated with diaphoresis, lightheadedness and dizziness. She denied any associated shortness of breath or palpitations. She does have prior history of OH but felt that her previous OH was much more painful. She described this chest pain as a, "ache." Up until today she been in her usual state of health. She has been under a lot of stress given the pandemic as well as her is currently undergoing bladder cancer treatment at [facility] once a week. She denies any fever, chills, sweats, syncope, shortness of breath, palpitations, cough, hemoptysis, nausea, vomiting, abdominal pain, dysuria, increased urgency or frequency with urination. She denies any weight loss or weight gain. Does have chronic right lower extremity lymphedema but does not feel it is any worse. She does get intermittent vertigo which she did have an episode yesterday. Describes this as a, "spinning sensation." She also elicits frequent rhinorrhea. She denies any loss of taste or smell. She denies any exposure to any [employer] contacts. She denies any recent travel the past 2 weeks. In ED patient remained hemodynamically stable. Initial work-up was revealed troponin WNL, EKG without acute ST or T wave change, elevated d-dimer. CBC and CMP were otherwise unremarkable. Chest x-ray and CTA of chest were negative for any acute cardiopulmonary abnormality. Repeat troponin elevated 0.122. ED provider contacted on-call cardiology who recommended admission with initiation of low-dose IV heparin no bolus. Patient is currently asymptomatic and pain-free. Discharge Data Allergies Allergy/AdvReac Type Severity Reaction Status Date / Time THAD Inhibitors Allergy Intermediate RASH Verified 12/23/19 12:53 adhesive Allergy Unknown TAPES-REDNESS Verified 12/23/19 12:53 RASH-STICKY TAPE amoxicillin Allergy Unknown RASH Verified 12/23/19 12:53 latex Allergy Unknown RED HANDS Verified 12/23/19 12:53 WITH GLOVES losartan Allergy Unknown RASH-GI Verified 12/23/19 12:53 UPSET Penicillins Allergy Unknown RASH Verified 12/23/19 12:53 Cipro AdvReac Severe "sick" Verified 02/19/18 07:40 ciprofloxacin AdvReac Severe "sick" Verified 12/23/19 12:53 morphine AdvReac Mild vOMITING Verified 12/23/19 12:53 Consultations 12/23/19 17:03 Consult Cardiology Stat ED Decision to Admit Stat Procedures Performed Operation Date: 12/24/19 10:30 Actual Procedures p Cath, Left with Cors and Vent - Abdiaziz Gomes MD s Cineradiography w/Routine Exam - Abdiaziz Gomes MD Ordered Studies 12/23/19 13:07 CT angio chest PE protocol Stat 12/24/19 05:21 CT head/brain wo con Urgent 12/24/19 10:27 CL Cath Imgs for PACS use only Stat 12/25/19 13:30 US venous doppler LE BI Routine Hospital Course (1) Atypical chest pain: (2) Non-ST elevation [place] (NSTEMI): per admitting service notes: This is an 84-year-old female who has significant PMH of CAD with history of bare-metal stent 05/2001 to LAD, HTN, HLD, Raynauds, allergic rhinitis, chronic right lower extremity lymphedema who presents to ED secondary to chest pain x1 hour prior to arrival. Patient presents with atypical chest pain and relieved upon arrival. Initial work-up revealed EKG normal sinus rhythm without ST or T wave change for troponin WNL, CBC and CMP relatively unremarkable. Repeat troponin was elevated at 0.122. She continues to remain asymptomatic and chest pain free. Prior to arrival she did take nitroglycerin and 2 baby aspirin. s/p Cardiac Cath 12/24/19: Impression:1. Culprit vessel small AV groove portion of the left circumflex with subtotal occlusion 2. Patent left anterior descending stent 3. Mild to moderate diffuse coronary atherosclerosis Echo: Echocardiogram reveals hypokinesis of the anterior septum inferoseptum and inferior wall at the apex. Findings do appear consistent with prior echocardiograms and overall systolic function preserved. continue medical management including ASA, Metoprolol, Imdur, Pravastatin (3) CAD (coronary atherosclerotic disease): management per above (4) Hypertension: Blood pressure stable overall Continue metoprolol (5) Hypercholesterolemia: LDL 71 continue Pravastatin (6) DVT prophylaxis: was on IV heparin SCDs ordered possible d/c home tomorrow Discharge Plan Discharge Items Patient Disposition: Home - Home Health Services Reason For Visit: NSTEMI Discharge Diagnosis: CHEST PAIN, NON-ST ELEVATION MYORCARDIL INFARCTION Condition on Discharge: Good Activity: Resume your previous activity Activity Comment: GRADUALLY TOLERATED, NO HEAVY EXERTION Lifting: Wait until after follow-up appointment Exercise/Sports: Wait until after follow-up appointment Driving/Machine Use: NO DRIVING UNTIL RE-EVALUATED AND ALLOWED BY PRIMARY CARE PHYSICIAN Non-emergency contact: Primary Care Provider Call non-emergency contact if: you have any medication questions and you have a fever Follow-up/Referrals: Royer Zamudio DO [Education Program Manager] - Gee Gamez DO [Primary Care Provider] - 12/31/19 11:20 am (12/31/2019 11:20 AM Jordan Posada MD General Internal Medicine [facility] ) Diet: Heart Healthy Add Attending Provider Instructions: YOUR NEW MEDICATION IS IMDUR (ISOSORBIDE MONONITRATE) - to prevent chest pain STAY WELL HYDRATED. PLEASE RETURN TO THE ER OR CALL 911 IMMEDIATELY IF WITH RECURRENCE OR WORSENING OF SYMPTOMS, INCLUDING CHEST PAIN, SHORTNESS OF BREATH, PALPITATIONS, DIZZINESS. FOLLOW UP WITH PRIMARY CARE PHYSICIAN NEXT WEEK OUTLINED ABOVE. FOLLOW UP WITH DIGITAL TECHNICIAN IN 2-3 WEEKS. PLEASE CALL HIS OFFICE FOR AN APPOINTMENT. Pending Studies at Discharge: No Stand-Alone Forms: [employer] Hotline, Smoking Cessation Medications and DC Order Prescriptions: New isosorbide mononitrate 30 mg Tablet Extended Release 24 Hr 30 mg PO QAM Qty: 30 RF: 2 Continued multivitamin Tablet 1 tab PO DAILY RF: 0 pravastatin 40 mg tablet 40 mg PO DAILY RF: 0 pyridoxine (vitamin B6) [Vitamin B-6] 25 mg Tablet 25 mg PO DAILY RF: 0 aspirin [Aspir-81] 81 mg Tablet,Delayed Release (Dr/Ec) 81 mg PO DAILY RF: 0 metoprolol tartrate 50 mg tablet 50 mg PO BID RF: 0 fluticasone propionate [Flonase Allergy Relief] 50 mcg/actuation [place],Suspension 2 spray INTRANASAL DAILY RF: 0 coenzyme Q10 [CoQ-10] 100 mg Capsule 100 mg PO DAILY RF: 0 omega [id number] oil [Fish Oil] 1,000 mg (120 mg-180 mg) Capsule 1 cap PO DAILY RF: 0 Discharge Orders: Discharge Order (Routine); Ordered 12/25/19 Ordered By: Deo Austin/Other Patient Handouts: Pacemaker Biventricular and ICD, Understanding SAMPLE CLERK Admission Data Admit Date/Time: 12/23/19 17:16 Attending Provider: Deo Morris Admit Provider: Morgan Busch Primary Care Provider: Gee Gamez Other Providers: Abdiaziz Gomes ; Morgan Busch
--- NOTE | 2019-12-25 17:15 | Hospitalist Progress Note ---
Date of Service December 25, 2019 Assessment & Plan (1) Atypical chest pain: (2) Non-ST elevation SD (NSTEMI): per admitting service notes: This is an 84-year-old female who has significant PMH of CAD with history of bare-metal stent 05/2001 to LAD, HTN, HLD, Raynauds, allergic rhinitis, chronic right lower extremity lymphedema who presents to ED secondary to chest pain x1 hour prior to arrival. Patient presents with atypical chest pain and relieved upon arrival. Initial work-up revealed EKG normal sinus rhythm without ST or T wave change for troponin WNL, CBC and CMP relatively unremarkable. Repeat troponin was elevated at 0.122. She continues to remain asymptomatic and chest pain free. Prior to arrival she did take nitroglycerin and 2 baby aspirin. Molten [employer] Pourer - Dr. Gomes consulted s/p Cardiac Cath 12/24/19: Impression:1. Culprit vessel small AV groove portion of the left circumflex with subtotal occlusion 2. Patent left anterior descending stent 3. Mild to moderate diffuse coronary atherosclerosis Echo: Echocardiogram reveals hypokinesis of the anterior septum inferoseptum and inferior wall at the apex. Findings do appear consistent with prior echocardiograms and overall systolic function preserved. Cardiology recommending to continue medical management- Imdur 30mg po daily added continue ASA, Metoprolol, Pravastatin evaluated by PT/OT, recommend SNF or home health services with PT/OT patient declined above, states she lives with her who can provide 24 hour support discussed risks involved including falls, injuries, she is accepting of risks, reinforced to ambulate carefully, always use walker, have her support her (3) CAD (coronary atherosclerotic disease): management per above (4) Hypertension: Blood pressure stable overall Continue metoprolol (5) Hypercholesterolemia: LDL 71 continue Pravastatin (6) Delirium: developed hallucinations, confusion on hospital day 2 no signs of infection resolved in the morning (7) DVT prophylaxis: was on IV heparin SCDs ordered possible d/c home tomorrow Admission and Anticipated Discharge Date Admission Date: December 23, 2019 Subjective ff up for chest pain seen resting in bed, comfortable was having delirium episode overnight, resolved denies confusion, chills, cough, sputum production, problems with urination in good spirits, oriented x 3, not in distress no chest pain since admission denies dyspnea, palpitations, dizziness ambulates in the room with no problems no other symptoms Review of Systems Review of Systems: All systems reviewed & are unremarkable except as noted in HPI & below Physical Exam Physical Exam: General- oriented x 3, not in distress, speaks in sentences with no effort or accessory muscle use Eyes- anicteric Neck- no JVD Lungs- clear breath sounds bilaterally, no rales/wheezes Heart- normal rate, regular rhythm; no murmurs Abdomen- normal bowel sounds, nondistended, soft, nontender Extremities- no pretibial edema, no calf tenderness right wrist: no hematoma, swelling, bleeding, discharge Neuro- alert, oriented x 3; no gross focal neurologic deficits Skin- warm & dry Results & Data Results & Data ([facility]) Vital Signs (Past 12 Hours) Vital Signs Temp Pulse Pulse Pulse Resp BP BP 12/25/19 16:16 36.4 C L 75 68 18 107/54 L 98/62 L 12/25/19 15:34 78 12/25/19 11:09 36.4 C L 68 18 98/62 L 12/25/19 07:36 36.4 C L 74 19 123/64 Pulse Ox 12/25/19 16:16 94 12/25/19 15:34 12/25/19 11:09 94 12/25/19 07:36 95 Laboratory Results Laboratory Results - last 24 hr 12/25/19 12/25/19 12/25/19 05:31 05:42 10:10 APTT 26.8 PTT Ratio 1.0 Sodium 142 Potassium 3.7 Chloride 113 H Carbon Dioxide 24 Anion Gap 5.0 BUN 19 H Creatinine 0.45 L Est Cr Clr Drug Dosing 81.8 Est GFR ( Amer) 107.4 Est GFR (Non-Af Amer) 92.7 BUN/Creatinine Ratio 42.4 H Glucose 109 H Calcium 8.2 L Urine Color Yellow Urine Appearance Clear Urine pH 5.5 Ur Specific [place] 1.015 Urine Protein Negative Urine Glucose (UA) Negative Urine Ketones Negative Urine Blood Negative Urine Nitrite Negative Urine Bilirubin Negative Urine Urobilinogen Negative Ur Leukocyte Esterase Negative
--- NOTE | 2019-12-25 17:27 | Discharge Summary ---
Date of Service December 25, 2019 Admission HPI Per Admitting Provider This is an 84-year-old female who has significant PMH of CAD with history of bare-metal stent 05/2001 to LAD, HTN, HLD, Raynauds, allergic rhinitis, chronic right lower extremity lymphedema who presents to ED secondary to chest pain x1 hour prior to arrival. She elicits she did her usual routine this morning had coffee and ate breakfast. Afterwards she went upstairs to take a shower when she noticed that the shower needing cleaned. She started to clean the shower with a broom and developed chest pain underneath bilateral breasts. Pain was nonradiating, rated 5/10, improved after administration of 2 baby aspirin and nitro, nothing made worse, associated with diaphoresis, lightheadedness and dizziness. She denied any associated shortness of breath or palpitations. She does have prior history of GA but felt that her previous GA was much more painful. She described this chest pain as a, "ache." Up until today she been in her usual state of health. She has been under a lot of stress given the pandemic as well as her is currently undergoing bladder cancer treatment at [place] once a week. She denies any fever, chills, sweats, syncope, shortness of breath, palpitations, cough, hemoptysis, nausea, vomiting, abdominal pain, dysuria, increased urgency or frequency with urination. She denies any weight loss or weight gain. Does have chronic right lower extremity lymphedema but does not feel it is any worse. She does get intermittent vertigo which she did have an episode yesterday. Describes this as a, "spinning sensation." She also elicits frequent rhinorrhea. She denies any loss of taste or smell. She denies any exposure to any [employer] contacts. She denies any recent travel the past 2 weeks. In ED patient remained hemodynamically stable. Initial work-up was revealed troponin WNL, EKG without acute ST or T wave change, elevated d-dimer. CBC and CMP were otherwise unremarkable. Chest x-ray and CTA of chest were negative for any acute cardiopulmonary abnormality. Repeat troponin elevated 0.122. ED provider contacted on-call cardiology who recommended admission with initiation of low-dose IV heparin no bolus. Patient is currently asymptomatic and pain-free. Admission Exam Per Admitting Provider Constitutional: WD/WN, elderly, female, vitals as above, NAD, sitting up in bed, pleasant, conversing easily Head: Normocephalic, Atraumatic Eyes: PERRL, conjunctivae normal, anicteric sclerae ENMT: external ear canal clean and dry, TMs visualized and within normal limits, and nose normal, oropharynx normal Neck: trachea midline, no thyromegaly normal visual inspection Respiratory: normal respiratory effort, lungs clear to auscultation, no wheeze, rales, rhonchi. Normal insp/exp effort, no accessory muscle use Cardiovascular: RRR, 1/6 ERICKA noted RUSB, right lower extremity lymphedema, compression stocking in place, bilateral pedal pulse +2 and equal Vessels: no JVD or carotid bruit Chest: normal inspection of chest, no chest pain to palpation Abdomen: normal bowel sounds, soft, nontender, no hepatosplenomegaly Musculoskeletal: no cyanosis or clubbing, extremities motor strength 5/5 Skin: no rashes, warm and dry normal turgor Neurologic: PERRL, EOMI, accommodation nl, no face palsy, no dysarthria CN's II-XI intact bilaterally and moves all extremities Psychiatric: A+Ox3, euthymic affect Lymphatic: no cervical or axillary lymphadenopathy : deferred Principal Diagnosis NON-ST ELEVATION MYOCARDIAL INFARCTION Discharge Exam General- oriented x 3, not in distress, speaks in sentences with no effort or accessory muscle use Eyes- anicteric Neck- no JVD Lungs- clear breath sounds bilaterally, no rales/wheezes Heart- normal rate, regular rhythm; no murmurs Abdomen- normal bowel sounds, nondistended, soft, nontender Extremities- no pretibial edema, no calf tenderness right wrist: no hematoma, swelling, bleeding, discharge Neuro- alert, oriented x 3; no gross focal neurologic deficits Skin- warm & dry Discharge Data Allergies Allergy/AdvReac Type Severity Reaction Status Date / Time THAD Inhibitors Allergy Intermediate RASH Verified 12/23/19 12:53 adhesive Allergy Unknown TAPES-REDNESS Verified 12/23/19 12:53 RASH-STICKY TAPE amoxicillin Allergy Unknown RASH Verified 12/23/19 12:53 latex Allergy Unknown RED HANDS Verified 12/23/19 12:53 WITH GLOVES losartan Allergy Unknown RASH-GI Verified 12/23/19 12:53 UPSET Penicillins Allergy Unknown RASH Verified 12/23/19 12:53 Cipro AdvReac Severe "sick" Verified 02/19/18 07:40 ciprofloxacin AdvReac Severe "sick" Verified 12/23/19 12:53 morphine AdvReac Mild vOMITING Verified 12/23/19 12:53 Consultations 12/23/19 17:03 Consult Cardiology Stat ED Decision to Admit Stat Procedures Performed Operation Date: 12/24/19 10:30 Actual Procedures p Cath, Left with Cors and Vent - Abdiaziz Gomes MD s Cineradiography w/Routine Exam - Abdiaziz Gomes MD Ordered Studies 12/23/19 13:07 CT angio chest PE protocol Stat No pathologically enlarged axillary mediastinal or hilar lymph nodes were visualized. The ascending thoracic aorta measures 33 mm. There were no pulmonary artery filling defects to indicate acute pulmonary embolism. No pleural effusions are visualized. There is biapical from a nodular scarring. There is no focal pulmonary consolidation. There are mild dependent atelectatic changes. There is a 3 x 2 mm left upper lobe pulmonary nodule. No further follow-up is indicated. There is a calcified left lower lobe granuloma. IMPRESSION: 1. No acute intrathoracic findings 2. No evidence of acute pulmonary embolism 3. No evidence of focal pulmonary consolidation 12/24/19 05:21 CT head/brain wo con Urgent Proportional ventricular and sulcal prominence, likely age-related parenchymal volume loss. No hemorrhage. Periventricular and subcortical white matter hypoattenuation, nonspecific but likely indicative of chronic small vessel ischemic change. No acute territorial infarct. No mass effect or midline shift. No extra-axial fluid collection. Paranasal sinuses and mastoid air cells clear. Calvarium intact. IMPRESSION: 1. Chronic small vessel ischemic change. No acute intracranial abnormality. 12/24/19 10:27 CL Cath Imgs for PACS use only Stat 12/25/19 13:30 US venous doppler LE BI Routine IMPRESSION: No evidence of deep venous thrombosis. Hospital Course (1) Atypical chest pain: (2) Non-ST elevation GA (NSTEMI): per admitting service notes: This is an 84-year-old female who has significant PMH of CAD with history of bare-metal stent 05/2001 to LAD, HTN, HLD, Raynauds, allergic rhinitis, chronic right lower extremity lymphedema who presents to ED secondary to chest pain x1 hour prior to arrival. Patient presents with atypical chest pain and relieved upon arrival. Initial work-up revealed EKG normal sinus rhythm without ST or T wave change for troponin WNL, CBC and CMP relatively unremarkable. Repeat troponin was elevated at 0.122. She continues to remain asymptomatic and chest pain free. Prior to arrival she did take nitroglycerin and 2 baby aspirin. [employer] Inserting Machine Operator - Dr. Gomes consulted s/p Cardiac Cath 12/24/19: Impression:1. Culprit vessel small AV groove portion of the left circumflex with subtotal occlusion 2. Patent left anterior descending stent 3. Mild to moderate diffuse coronary atherosclerosis Echo: Echocardiogram reveals hypokinesis of the anterior septum inferoseptum and inferior wall at the apex. Findings do appear consistent with prior echocardiograms and overall systolic function preserved. Cardiology recommending to continue medical management- Imdur 30mg po daily added continue ASA, Metoprolol, Pravastatin ff up with [employer] evaluated by PT/OT, recommend SNF or home health services with PT/OT patient declined above, states she lives with her who can provide 24 hour support discussed risks involved including falls, injuries, she is accepting of risks, reinforced to ambulate carefully, always use walker, have her support her (3) CAD (coronary atherosclerotic disease): management per above (4) Hypertension: Blood pressure stable overall Continue metoprolol (5) Hypercholesterolemia: LDL 71 continue Pravastatin (6) Delirium: developed hallucinations, confusion on hospital day 2 no signs of infection resolved in the morning (7) DVT prophylaxis: was on IV heparin SCDs ordered d/c home ff up with PCP next week ff up with [employer] in 2-3 weeks Total Time Total Time Spent Total Time Spent (In Minutes): 50 minutes Discharge Plan Discharge Items Patient Disposition: Home - Home Health Services Reason For Visit: NSTEMI Discharge Diagnosis: CHEST PAIN, NON-ST ELEVATION MYORCARDIL INFARCTION Condition on Discharge: Good Activity: Resume your previous activity Activity Comment: GRADUALLY TOLERATED, NO HEAVY EXERTION Lifting: Wait until after follow-up appointment Exercise/Sports: Wait until after follow-up appointment Driving/Machine Use: NO DRIVING UNTIL RE-EVALUATED AND ALLOWED BY PRIMARY CARE PHYSICIAN Non-emergency contact: Primary Care Provider Call non-emergency contact if: you have any medication questions and you have a fever Follow-up/Referrals: Royer Zamudio DO [Dowel Inserting Machine Operator] - Gee Gamez DO [Primary Care Provider] - 12/31/19 11:20 am (12/31/2019 11:20 AM Jordan Posada MD General Internal Medicine [facility] ) Diet: Heart Healthy Addtl Attending Provider Instructions: YOUR NEW MEDICATION IS IMDUR (ISOSORBIDE MONONITRATE) - to prevent chest pain STAY WELL HYDRATED. PLEASE RETURN TO THE ER OR CALL 911 IMMEDIATELY IF WITH RECURRENCE OR WORSENING OF SYMPTOMS, INCLUDING CHEST PAIN, SHORTNESS OF BREATH, PALPITATIONS, DIZZINESS. FOLLOW UP WITH PRIMARY CARE PHYSICIAN NEXT WEEK OUTLINED ABOVE. FOLLOW UP WITH [facility] IN 2-3 WEEKS. PLEASE CALL HIS OFFICE FOR AN APPOINTMENT. Pending Studies at Discharge: No Stand-Alone Forms: My [facility] [email or web address], Smoking Cessation Medications and DC Order Prescriptions: New isosorbide mononitrate 30 mg Tablet Extended Release 24 Hr 30 mg PO QAM Qty: 30 RF: 2 Continued multivitamin Tablet 1 tab PO DAILY RF: 0 pravastatin 40 mg tablet 40 mg PO DAILY RF: 0 pyridoxine (vitamin B6) [Vitamin B-6] 25 mg Tablet 25 mg PO DAILY RF: 0 aspirin [Aspir-81] 81 mg Tablet,Delayed Release (Dr/Ec) 81 mg PO DAILY RF: 0 metoprolol tartrate 50 mg tablet 50 mg PO BID RF: 0 fluticasone propionate [Flonase Allergy Relief] 50 mcg/actuation [place],Suspension 2 spray INTRANASAL DAILY RF: 0 coenzyme Q10 [CoQ-10] 100 mg Capsule 100 mg PO DAILY RF: 0 omega [id number] oil [Fish Oil] 1,000 mg (120 mg-180 mg) Capsule 1 cap PO DAILY RF: 0 Discharge Orders: Discharge Order (Routine); Ordered 12/25/19 Ordered By: Deo Austin/Other Patient Handouts: Pacemaker Biventricular and ICD, Understanding PHYSICS TECHNICIAN Admission Data Admit Date/Time: 12/23/19 17:16 Attending Provider: Deo Morris Admit Provider: Morgan Busch Primary Care Provider: Gee Gamez Other Providers: Abdiaziz Gomes ; Morgan Busch Other Interventions: Discharge Summary Assessment (RN) Last Done: 12/25/19 16:16 DC Date/Time DO NOT enter until pt leaves facility: 12/25/19 16:36
== END 2019-12-25 16:36 | disposition home or self-care (01) | DRG 282 ==
LOC: ED 11:26 → 2S 17:16 → SUATTDRO 17:16 → 2S 19:30

== ENCOUNTER 2025-03-06 14:50 | Inpatient (IN) ==
[2025-03-06 16:15] LABS: Hematocrit (blood only) 39.1 % (37.0-47.0); Hemoglobin 13.1 g/dl (12.0-16.0); Immature Granulocytes # (auto) 0.06 K/uL (0.01-0.20); Immature Granulocytes % (auto) 0.6 %; Mean Corpuscular Hemoglobin 32.2 pg (25.0-34.0); Mean Corpuscular Volume 96.1 fL (80.0-100.0); Platelet Count 238 K/uL (130-400); RDW Standard Deviation 49.1 fL (36.4-46.3); Red Blood Count 4.07 M/uL (4.20-5.40); White Blood Count 10.55 K/ul (4.8-10.8)
[2025-03-06 16:27] LABS: Alanine Aminotransferase 18.0 U/L (7-52); Albumin Globulin Ratio 1.3 (0.9-2); Alkaline Phosphatase 70.0 U/L (34-104); Anion Gap 4.0 (3-11); Bilirubin,Total 0.6 mg/dl (0.2-1.0); Blood Urea Nitrogen 17.0 mg/dl (6-23); Calcium 9.3 mg/dl (8.6-10.3); Carbon Dioxide 32.0 mmol/L (21-32); Chloride 105.0 mmol/L (98-107); Creatinine Clr Calc Pharmacy 55.5 ml/min; Globulin 3.1 gm/dl (2.5-4.0); Glucose 95.0 mg/dl (70-99(Fasting)); Lipase 11.0 U/L (11-82); Potassium 4.4 mmol/L (3.5-5.1); Sodium 141.0 mmol/L (136-145); Total Protein 7.1 gm/dl (6.0-8.3)
--- NOTE | 2025-03-06 16:39 | XRay Report ---
EXAM: Portable AP chest radiograph TECHNIQUE: AP portable radiograph of the chest was obtained. INDICATION: Shortness of breath Comparison: Chest radiograph January 08, 2023 FINDINGS: LINES and TUBES: CARDIOVASCULAR: Cardiac silhouette is stably and mildly enlarged in size. Atherosclerosis of the thoracic aorta. LUNGS/PLEURA: No focal consolidation identified. Chronic interstitial lung changes. No significant pleural fluid. No discernible pneumothorax. OSSEOUS/OTHER: No displaced acute osseous process identified. Bilateral shoulder reverse arthroplasties. IMPRESSION: No radiographic evidence of acute cardiopulmonary process. Electronically signed by Charly Fischer 03-06-2025 4:39 PM
[2025-03-06] MEDS: OPTIRAY 320 100ml IV ONE (16:53)
[2025-03-06 16:56] LABS: INR 1.0 (0.9-1.1); Partial Thromboplastin Time 26 Seconds (21-31); Prothrombin Time 10.9 Seconds (9.0-12.0)
[2025-03-06 17:01] LABS: Appearance Urine Clear (Clear); Bacteria Urine Automated 4+ (None Seen); Cast Urine Automated 0-2 /lpf (0-2); Glucose Urine UA Negative (Negative); RBC Urine Automated 0-2 /hpf (0-2); WBC Urine Automated 0-5 /hpf (0-5)
--- NOTE | 2025-03-06 17:13 | CT Scan Report ---
Clinical History: Fall Technique: Axial computed tomography images were obtained of the brain without intravenous contrast. Comparison is made to the prior CT dated 12/24/2019 Findings: There is unchanged cerebral atrophy, within expected limits for the patient's age. Areas of decreased attenuation are seen within the periventricular white matter, likely representing chronic small vessel ischemic disease. There are calcifications along the falx cerebri. There is no definite sign of acute or old infarction. No intracranial hemorrhage is evident. No definite mass lesion is seen on this noncontrast examination. There is no midline shift or other form of herniation. No hydrocephalus is seen. No fracture is identified. The orbits and the visualized paranasal sinuses appear unremarkable. The mastoid air cells appear clear. Impression: 1. Cerebral atrophy and chronic small vessel ischemic disease 2. Otherwise unremarkable noncontrast CT of the brain Electronically signed by Cory Alcantar 03-06-2025 5:10 PM
--- NOTE | 2025-03-06 17:34 | CT Scan Report ---
Clinical history: Fall Technique: Axial computed tomography images were obtained of the chest after the administration of intravenous contrast Comparison is made to the prior CT dated 12/23/2019 Findings: There is an unchanged 4 mm left lower lobe nodule. There is unchanged linear opacity along the left major fissure. There are unchanged small peripheral nodular opacities in the right upper lobe. There is no definite change in a 3 mm nodular opacity in the right lower lobe. There is no pleural effusion or pneumothorax. There are irregular opacities in the lung apices, likely due to pleural parenchymal scarring. No endobronchial lesion is seen There is no mediastinal, hilar, or axillary adenopathy. The thoracic aorta appears unremarkable with no sign of aneurysm or dissection. There is no pericardial effusion. There is coronary atherosclerosis There is a 1 cm nodule in the left thyroid lobe No fracture is seen. No focal osseous lesion is evident. There are bilateral shoulder arthroplasties Impression: 1. Several unchanged pulmonary nodules, benign given the long-term stability 2. Indeterminate thyroid nodule. A thyroid ultrasound could be obtained for further evaluation 3. Coronary atherosclerosis ACT 112: Positive. There are findings on this exam that require communication between the performing entity and the patient following Patient Test Result Information Act ([place] ACT 112) guidelines. Electronically signed by Cory Alcantar 03-06-2025 5:33 PM
--- NOTE | 2025-03-06 17:39 | CT Scan Report ---
CT LEFT HIP WITHOUT CONTRAST: HISTORY: Trauma TECHNIQUE: CT of the left hip was obtained without intravenous contrast. Coronal and sagittal reformats were created. COMPARISON: None FINDINGS: There are multifocal acute traumatic fractures involving the left pubic bone resulting in mild impaction. Acute traumatic fracture of the left inferior pubic ramus. Intramuscular hematomas in the abutting adductor muscles Patient is status post left hip arthroplasty with components in anatomic alignment. IMPRESSION: Multifocal acute traumatic fractures of the left pubic bone resulting mild impaction. Acute traumatic fracture of the left inferior pubic ramus. Intact left hip arthroplasty with components in anatomic alignment. Electronically signed by Charly Fischer 03-06-2025 5:38 PM
--- NOTE | 2025-03-06 17:47 | CT Scan Report ---
CT ABDOMEN and PELVIS with INTRAVENOUS CONTRAST HISTORY: Abdominal pain TECHNIQUE: CT abdomen and pelvis with contrast. IV CONTRAST: 100 mL of OMNIPAQUE 300 ENTERIC CONTRAST: Not Given COMPARISON: None FINDINGS: LOWER CHEST: Please see separately dictated thoracic CT report LIVER: No focal lesion identified. Hepatic steatosis and hepatomegaly GALLBLADDER/BILIARY: Surgically absent gallbladder. Mild intrahepatic biliary dilation and prominent caliber to the common bile duct may be an expected finding following cholecystectomy and allowing for patient age. SPLEEN: Unremarkable. PANCREAS: Atrophic parenchyma without discrete mass.. ADRENALS: Unremarkable. KIDNEYS: Small cortical cysts. No stones or hydronephrosis identified. PERITONEUM/RETROPERITONEUM. No lymphadenopathy by size criteria. No aortic aneurysm. Extensive atherosclerosis with stenoses of the celiac trunk, SMA, the renal arteries and the [place]. Small presacral fluid that is nonspecific GASTROINTESTINAL: No obstruction. Colonic diverticulosis without evidence of diverticulitis. REPRODUCTIVE: Poorly evaluated due to obscuration by streak artifact. No obvious suspicious pelvic masses identified. BONES: Please refer to separately dictated left hip CT report for additional findings. Multiple chronic appearing mild compression deformities of the lumbar spine. No significant retropulsion is identified IMPRESSION: No evidence of acute visceral trauma to the abdomen or the pelvis. Electronically signed by Charly Fischer 03-06-2025 5:47 PM
[2025-03-06] MEDS: ACETAMINOPHEN 1000 MG/100 ML IV IV ONE (17:49)
[2025-03-06] MEDS: ACETAMINOPHEN 1,000 MG/100 ML VIAL IV STA (17:49)
--- NOTE | 2025-03-06 17:53 | CT Scan Report ---
CT CERVICAL SPINE WITHOUT CONTRAST: HISTORY: TRAUMA TECHNIQUE: Noncontrast CT examination of the cervical spine is performed. Coronal and sagittal reformats were created. COMPARISON: Cervical spine CT June 06, 2022 FINDINGS: CERVICAL SPINE: There is no significant vertebral body height loss. No acute traumatic fracture identified. There is no significant spondylolisthesis. Multilevel degenerative changes characterized by disc osteophyte complex, bilateral facet and uncovertebral hypertrophy resulting and neural foraminal narrowing at multiple levels, worst at mid to lower spine. Visualized soft tissues of neck are unremarkable. IMPRESSION: No acute traumatic fracture of the cervical spine. Multilevel degenerative changes as above Electronically signed by Charly Fischer 03-06-2025 5:53 PM
--- NOTE | 2025-03-06 18:07 | Emergency Department Note ---
Impression & Plan Pubic bone fracture, Closed fracture of ramus of left pubis ED Provider Note CHIEF COMPLAINT: Fall with left hip pain HISTORY OF PRESENTING ILLNESS: Patient is an 89-year-old female who presents to the emergency department today for complaints of left hip pain. The patient's daughter and are both present in the room. They report that the patient fell today it was unwitnessed. Her attempted to get her up off the floor but was unable due to the pain that she was in. He did call 911 and the patient was brought in by EMS. EMS does report that the patient had complained of neck pain as well as left hip pain. The patient is confused but the daughter does report that is baseline. [] denies chest pain, sob, breathing difficulties, abdominal pain, headache, fevers/chills, blood in stool or urine, any recent illness, or any recent travel. REVIEW OF SYSTEMS: See HPI for pertinent positives and pertinent negatives. ALLERGIES: See below MEDICATIONS: See below PAST MEDICAL HISTORY: See below PHYSICAL EXAM: Cervical collar in place by EMS upon arrival. Primary Survey Airway: Intact Breathing: Normal, breath sounds equal bilaterally Circulation: Skin warm, well perfused, capillary refill less than 2 seconds Disability Pupils: Equal and reactive to light, 2 mm, brisk GCS: 15. Motor Function: Moves all extremities. Sensory: No deficits Secondary Survey GENERAL: NAD, non-toxic. HEAD: Normal cephalic atraumatic EYE EXAM: Normal conjunctiva. PERRL, no anisocoria and EOM's grossly intact w/o pain. OROPHARYNX: Moist mucus membranes. Grossly normal dentition. NECK: Supple, trachea midline, no midline C spine TTP. Chest: No reproducible chest wall pain LUNGS: Clear to auscultation. Normal chest wall mechanics. HEART: NSR, no MRG. ABDOMEN: Abdomen soft, non-tender, no obvious bruising, normo-active bowel sounds, no masses, no rebound or guarding. BACK: No CVA TTP. No midline thoracic or lumbar TTP SKIN: No rashes and no bruising. UPPER EXTREMITIES: Upper extremities are grossly normal. Well-perfused and compartments are soft throughout. LOWER EXTREMITIES: Grossly normal, no edema. Well-perfused and compartments are soft throughout. NEURO EXAM: A&O x3, cranial nerves II-XII grossly intact, normal speech, moves all 4 extremities but with increased pain to the left lower extremity. Cervical collar removed at [address] clear cervical spine CT. DIFFERENTIAL DIAGNOSIS: Pelvis fracture, hip fracture, traumatic injury, sepsis, UTI, subdural hematoma, among others. ED COURSE AND MEDICAL DECISION MAKING: HISTORY FROM INDEPENDENT HISTORIAN: History was provided by the patient and daughter and . MONITOR: Continuous phototypesetting equipment monitor: Order was placed for continuous phototypesetting equipment monitor. Patient was placed on the phototypesetting equipment monitor and continuous pulse ox. Patient was noted to be in normal sinus rhythm at an initial rate of 90 bpm per my interpretation. EKG: Normal sinus rhythm INTERPRETATION OF LABS: I interpreted the labs with full lab results as below in the lab section of this note. Laboratory results pertinent to the emergent complaint are discussed in the MDM section below. The patient was advised to follow up with their PCP and/or specialist(s) for further outpatient monitoring and management of any abnormal results. INTERPRETATION OF IMAGING: Imaging studies were interpreted by myself and read by radiology as per the imaging section of this note. The patient was advised to follow up with their PCP and/or specialist(s) for further outpatient management of any non-emergent abnormal findings. CHRONIC MEDICAL/SOCIAL CONDITIONS AFFECTING CARE: No social concerns were identified as barriers to patients care. ESCALATION OF CARE CONSIDERED: I considered admission on this patient due to the fractures of the pelvis and inability to ambulate. CONSULTATIONS: I had a meaningful discussion about this patient with Dr. Maurice who agrees with my assessment and the treatment plan. SUMMARY: I examined the patient for complaints of left hip pain post fall. A physical exam and history were performed. Nursing notes, EMR, and medication list were personally reviewed. CBC showed no leukocytosis, anemia, thrombocytopenia. CMP showed no emergent findings. Urinalysis was positive for nitrates and leukocytes. Chest x-ray showed no acute cardiopulmonary process. Chest CT showed several unchanged pulmonary nodules, a thyroid nodule, coronary atherosclerosis. CT of the abdomen and pelvis showed no evidence of acute visceral trauma to the abdomen or the pelvis. CT of the cervical spine showed no acute traumatic fracture of the cervical spine but did show degenerative changes. Head CT did show cerebral atrophy and chronic small vessel ischemic disease, but otherwise unremarkable. The patient was given 1 g of Tylenol IV with improvement in pain and discomfort. I did consult with the hospitalist Dr. Neff and Richar Cohn PA-C for admission to the hospital. The patient was accepted. I updated the patient's daughter, , and the patient on the plan of care and they all verbalized understanding and agreement. DIAGNOSIS: Left pubic bone fracture and left inferior pubic ramus fracture TREATMENT PLAN/DISCHARGE INSTRUCTIONS: Attending Attestation: Bhavik Maurice MD I have reviewed the advanced practitioner's documentation and agree with the plan of care. Patient found to have pelvic fractures nonoperative. Admitted for pain control and further care. I accept the responsibility for the associated risk of managing the patient. I performed a substantive portion of the visit including involvement in all aspects of medical decision making. Admit to the hospitalist services Past Med/Surg History Problem List (Updated 03/10/25 @ 14:20 by FRED Calabrese) Pain Counseling regarding goals of care Encounter for assessment of healthcare decision-making capacity Palliative care by specialist Dementia Abnormal urinalysis Inferior pubic ramus fracture Ground-level fall Closed fracture of ramus of left pubis (Acute) Pubic bone fracture (Acute) Hallux valgus (acquired), right foot Pain in left foot Hammertoe of right foot Pain in foot Inclusion cyst Osteitis pubis Right groin pain Traumatic open wound of great toe with delayed healing (Acute) Delirium DVT prophylaxis Atypical chest pain (Acute) Elevated troponin (Acute) Non-ST elevation [place] (NSTEMI) (Acute) CAD (coronary atherosclerotic disease) Hypercholesterolemia Hypertension Degenerative joint disease (DJD) of hip (Acute) Surgical History History of shoulder surgery History of cataract extraction History of inguinal hernia repair, bilateral History of ankle joint replacement Left History of bilateral total hip arthroplasty History of hysterectomy History of colonoscopy with polypectomy History of carpal tunnel surgery of right wrist History of placement of stent in LAD coronary artery Chronic CAD with s/p PCI stent to mid LAD with bare metal stent May 2001. 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 Family History Mother , at 89 Asthma Father , 100 Prostate cancer Social History Smoking Status: Never smoker Hx Alcohol Use: Yes Alcohol type: beer Hx Substance Use: No Preferred Language: [place] Communication Ability: Impaired Commercial Litigation Associate Required: No Beliefs That Will Affect Care: Jainism marital status: Current Living Situation: Spouse current occupational status: retired other: Ambulates with a cane Feels Safe at Home: Yes Assistive Devices: Cane Allergies Allergies Allergy/AdvReac Type Severity Reaction Status Date / Time amoxicillin Allergy Intermediate RASH Verified 03/06/25 17:23 losartan Allergy Intermediate RASH/SWELLING Verified 03/06/25 17:23 OF LEGS Penicillins Allergy Intermediate RASH Verified 03/06/25 17:23 adhesive Allergy Mild TAPES-REDDENED Verified 03/06/25 17:23 RASH latex Allergy Mild RED HANDS Verified 03/06/25 17:23 WITH GLOVES Avryzug-XZM-NjK Reductase Allergy Unknown Unknown Verified 03/06/25 17:23 Inhibitor [Gahrvvr-Eqs-Ymg Reductase Inhibitor] ciprofloxacin AdvReac Severe "sick" Verified 03/06/25 17:23 morphine AdvReac Severe Vomiting Verified 03/06/25 17:23 THAD Inhibitors AdvReac Intermediate Cough Verified 03/06/25 17:23 fentanyl AdvReac Intermediate FAINTED Verified 03/06/25 17:23 Home Meds Home Medications Medication Instructions Recorded Confirmed multivitamin 1 tab PO DAILY 12/23/19 03/06/25 omega 9-fkf-iwc-fish oil 1,000 mg 1 cap PO QPM 12/23/19 03/06/25 (120 mg-180 mg) capsule (Fish Oil) aspirin 81 mg tablet,delayed 81 mg PO DAILY 01/08/23 03/06/25 release oxycodone 5 mg tablet 5 mg PO Q12H PRN Severe Pain 01/08/23 03/06/25 (Scale Score 7-10) metoprolol tartrate 25 mg tablet 12.5 mg PO BID 01/17/24 03/06/25 Beet Root 1 dose PO DAILY 03/06/25 03/06/25 acetaminophen 500 mg tablet 500 mg PO Q6H PRN PAIN/FEVER 03/06/25 03/06/25 (Tylenol Extra Strength) bisacodyl 5 mg tablet 5 mg PO DAILY PRN Constipation 03/06/25 03/06/25 cholecalciferol (vitamin D3) 25 25 mcg PO DAILY 03/06/25 03/06/25 mcg (1,000 unit) capsule (Vitamin D3) coQ10 (ubiquinol) 200 mg capsule 200 mg PO QPM 03/06/25 03/06/25 coffee extract 100 mg-phosphatidyl 1 cap PO QPM 03/06/25 03/06/25 serine 100 mg capsule (Neuriva Original) cyanocobalamin (vitamin B-12) 500 500 mcg PO Q OTHER DAY 03/06/25 03/06/25 mcg tablet (Vitamin B-12) fluticasone propionate 50 2 spray intranasal DAILY PRN Nasal 03/06/25 03/06/25 mcg/actuation nasal Congestion spray,suspension food supplemt, lactose-reduced 1 ea PO DIRECTED 03/06/25 03/06/25 (Ensure High Protein oral liquid) hydrochlorothiazide 12.5 mg capsule 12.5 mg PO .2-3XWK 03/06/25 03/06/25 nitroglycerin 0.4 mg sublingual 0.4 mg sublingual DIRECTED PRN 03/06/25 03/06/25 tablet (Nitrostat) Chest Pain ondansetron 4 mg disintegrating 4 mg translingual Q8H PRN 03/06/25 03/06/25 tablet NAUSEA/VOMITING pantoprazole 40 mg tablet,delayed 40 mg PO DAILYBB 03/06/25 03/06/25 release pravastatin 40 mg tablet 40 mg PO QPM 03/06/25 03/06/25 pyridoxine (vitamin B6) 50 mg 50 mg PO DAILY 03/06/25 03/06/25 tablet (Vitamin B-6) simethicone 80 mg chewable tablet 80 mg PO Q6H PRN GAS DISCOMFORT 03/06/25 03/06/25 sodium chloride 0.65 % nasal spray 1 spray intranasal DAILY PRN 03/06/25 03/06/25 aerosol (Saline Nasal) Congestion Previous Rx's Medication Instructions Recorded cefdinir 300 mg capsule 300 mg PO BID #2 caps 03/12/25 Results & Data (ED) Vital Signs Vital Signs - 24 hr 03/06/25 15:01 03/06/25 15:27 03/06/25 17:15 Pulse Rate 81 80 91 H Pulse Rhythm Regular Regular Respiratory Rate 17 18 Respiratory Effort / Characteristics Non-Labored Spontaneous Respiratory Depth Normal Blood Pressure 132/72 Blood Pressure Mean 92 Blood Pressure Position Sitting Pulse Oximetry 97 94 Oxygen Delivery Method Room Air Room Air Sepsis Recent Fever Within 48 Hours No Sepsis New/Unexplained Change in Mental Status N/A Sepsis Action Taken by Nursing No Action Required Laboratory Data 03/11/25 06:55 03/11/25 06:55 Lab Results 03/06/25 03/06/25 03/06/25 Range/Units 15:57 16:11 16:40 WBC 10.55 (4.8-10.8) K/ul RBC 4.07 L (4.20-5.40) M/uL Hgb 13.1 (12.0-16.0) g/dl POC Hgb 13.6 (12.0-16.0) g/dl Hct 39.1 (37.0-47.0) % POC Hct 40 (37-47) % MCV 96.1 (80.0-100.0) fL MCH 32.2 (25.0-34.0) pg MCHC 33.5 (32.0-36.0) g/dL RDW Std Deviation 49.1 H (36.4-46.3) fL RDW Coeff of Damon 13.8 (11.5-14.5) % Plt Count 238 (130-400) K/uL MPV 8.4 L (9.4-12.4) fL Immature Gran % (Auto) 0.6 % Neut % (Auto) 71.4 % Lymph % (Auto) 20.0 % Jennings % (Auto) 6.4 % Eos % (Auto) 1.1 % Baso % (Auto) 0.5 % Neut # (Auto) 7.54 H (1.40-6.50) K/uL Lymph # (Auto) 2.11 (1.20-3.40) K/uL Jennings # (Auto) 0.67 H (0.11-0.59) K/uL Eos # (Auto) 0.12 (0.00-0.50) K/uL Baso # (Auto) 0.05 (0.00-0.20) K/uL Immature Gran # (Auto) 0.06 (0.01-0.20) K/uL PT 10.9 (9.0-12.0) Seconds INR 1.0 (0.9-1.1) APTT 26 (21-31) Seconds PTT Ratio 1.0 POC Sodium 141 (135-144) mmol/L Sodium 141 (136-145) mmol/L POC Potassium 4.3 (3.3-5.0) mmol/L Potassium 4.4 (3.5-5.1) mmol/L POC Chloride 103 (101-112) mmol/L Chloride 105 (98-107) mmol/L Carbon Dioxide 32 (21-32) mmol/L POC Total CO2 27 (24-31) mmol/L Anion Gap 4 (3-11) POC Anion Gap 16.0 (16-25) mmol/L POC BUN 17 (7-18) mg/dl BUN 17 (6-23) mg/dl Creatinine 0.58 L (0.6-1.2) mg/dl POC Creatinine 0.7 (0.6-1.3) mg/dl Est Cr Clr Drug Dosing 55.5 ml/min eGFR 86.99 BUN/Creatinine Ratio 29.3 H (10-20) Glucose 95 (70-99(Fasting)) mg/dl POC Glucose (other) 97 (70-99) mg/dl Calcium 9.3 (8.6-10.3) mg/dl POC Ioniz Calcium Floyd 1.24 (1.12-1.32) mmol/l Total Bilirubin 0.6 (0.2-1.0) mg/dl AST 27 (13-39) U/L ALT 18 (7-52) U/L Alkaline Phosphatase 70 (34-104) U/L Total Protein 7.1 (6.0-8.3) gm/dl Albumin 4.0 (3.4-5.0) gm/dl Globulin 3.1 (2.5-4.0) gm/dl Albumin/Globulin Ratio 1.3 (0.9-2) Lipase 11 (11-82) U/L Urine Color Yellow Urine Appearance Clear (Clear) Urine pH 5.5 (4.5-7.5) Ur Specific Delta 1.022 (1.000-1.030) Urine Protein Negative (Negative) Urine Glucose (UA) Negative (Negative) Urine Ketones Trace H (Negative) Urine Blood Negative (Negative) Urine Nitrite Positive A (Negative) Urine Bilirubin Negative (Negative) Urine Urobilinogen Negative (Negative) Ur Leukocyte Esterase Trace H (Negative) Urine WBC (Auto) 0-5 (0-5) /hpf Urine RBC (Auto) 0-2 (0-2) /hpf U Hyaline Cast (Auto) 0-2 (0-2) /lpf U Epithel Cells (Auto) 3-5 H (0-2) /hpf Urine Bacteria (Auto) 4+ H (None Seen) Urine Comment Administered Medications Discontinued Medications Acetaminophen (Acetaminophen 1000 Mg/100 Ml Iv) Confirm Administered Dose 1,000 mg IV .STK-MED ONE Stop: 03/06/25 17:48 Last Admin: 03/06/25 17:49 Dose: Not Given Documented By: CLYDE Acetaminophen (Acetaminophen 325 Mg Tab) 650 mg PO Q4H PRN PRN Reason: mild Pain (1-3) or Fever Stop: 04/05/25 20:50 Last Admin: 03/10/25 18:12 Dose: 650 mg Documented By: Admin: 03/10/25 12:29 Dose: 650 mg Documented By: STEFANIE Aspirin (Aspirin 81 Mg Ectab) 81 mg PO DAILY TAIWO Stop: 04/06/25 08:59 Last Admin: 03/12/25 08:44 Dose: 81 mg Documented By: Admin: 03/11/25 08:00 Dose: 81 mg Documented By: Admin: 03/10/25 07:47 Dose: 81 mg Documented By: Admin: 03/09/25 08:07 Dose: 81 mg Documented By: Admin: 03/08/25 08:29 Dose: 81 mg Documented By: Admin: 03/07/25 08:12 Dose: 81 mg Documented By: JUJU Hydromorphone HCl (Hydromorphone Inj 1 Mg/Ml Syringe) 1 mg IV Q6H PRN PRN Reason: Breakthrough Pain Stop: 03/20/25 19:08 Last Admin: 03/07/25 07:48 Dose: 1 mg Documented By: Admin: 03/07/25 01:18 Dose: 1 mg Documented By: JOSSE Acetaminophen (Ofirmev) 1,000 mg in 100 mls @ 400 mls/hr IV NOW STA Stop: 03/06/25 17:59 Last Infusion: 03/06/25 18:33 Dose: Infused Documented By: Admin: 03/06/25 17:49 Dose: 400 mls/hr Documented By: CLYDE Ceftriaxone Sodium (Rocephin) 2,000 mg in 50 mls @ 100 mls/hr IV NOW STA Stop: 03/06/25 19:44 Last Infusion: 03/06/25 20:24 Dose: Infused Documented By: Admin: 03/06/25 19:55 Dose: 100 mls/hr Documented By: GARY Ceftriaxone Sodium (Rocephin) 2,000 mg in 50 mls @ 100 mls/hr IV Q24H TAIWO Stop: 03/11/25 19:59 Last Infusion: 03/10/25 20:46 Dose: Infused Documented By: Admin: 03/10/25 20:10 Dose: 100 mls/hr Documented By: Infusion: 03/09/25 20:57 Dose: Infused Documented By: Admin: 03/09/25 20:27 Dose: 100 mls/hr Documented By: Infusion: 03/08/25 21:45 Dose: Infused Documented By: Admin: 03/08/25 21:09 Dose: 100 mls/hr Documented By: Infusion: 03/07/25 21:35 Dose: Infused Documented By: Admin: 03/07/25 20:14 Dose: 100 mls/hr Documented By: SEAMUS Acetaminophen (Ofirmev) 1,000 mg in 100 mls @ 400 mls/hr IV Q8H TAIWO Stop: 03/10/25 13:59 Last Infusion: 03/10/25 06:06 Dose: Infused Documented By: Admin: 03/10/25 05:48 Dose: 400 mls/hr Documented By: Infusion: 03/09/25 21:15 Dose: Infused Documented By: Admin: 03/09/25 20:58 Dose: 400 mls/hr Documented By: Infusion: 03/09/25 14:34 Dose: Infused Documented By: Admin: 03/09/25 14:02 Dose: 400 mls/hr Documented By: Infusion: 03/09/25 06:14 Dose: Infused Documented By: Admin: 03/09/25 05:56 Dose: 400 mls/hr Documented By: Infusion: 03/08/25 22:01 Dose: Infused Documented By: Admin: 03/08/25 21:41 Dose: 400 mls/hr Documented By: Infusion: 03/08/25 14:45 Dose: Infused Documented By: Admin: 03/08/25 14:16 Dose: 400 mls/hr Documented By: Infusion: 03/08/25 05:45 Dose: Infused Documented By: Admin: 03/08/25 05:23 Dose: 400 mls/hr Documented By: Infusion: 03/07/25 21:57 Dose: Infused Documented By: Admin: 03/07/25 21:38 Dose: 400 mls/hr Documented By: Infusion: 03/07/25 14:13 Dose: Infused Documented By: Admin: 03/07/25 13:58 Dose: 400 mls/hr Documented By: JUJU Sodium Chloride (Nss) 500 mls @ 80 mls/hr IV .Q6H15M TAIWO Stop: 03/10/25 19:14 Last Infusion: 03/10/25 19:13 Dose: Infused Documented By: Admin: 03/10/25 12:57 Dose: 80 mls/hr Documented By: STEFANIE Ceftriaxone Sodium (Rocephin) 2,000 mg in 50 mls @ 100 mls/hr IV Q24H TAIWO Stop: 03/13/25 10:29 Last Infusion: 03/12/25 10:20 Dose: Infused Documented By: Admin: 03/12/25 09:45 Dose: 100 mls/hr Documented By: Infusion: 03/11/25 11:32 Dose: Infused Documented By: Admin: 03/11/25 10:59 Dose: 100 mls/hr Documented By: TEMI Ioversol (Optiray 320 100ml) 93 ml IV ONCE ONE Stop: 03/06/25 16:52 Last Admin: 03/06/25 16:53 Dose: 93 ml Documented By: ARIC Lactobacillus Acidophilus (Advanced Probiotic 625 Mg Capsule) 1,250 mg PO DAILY [facility] Stop: 04/07/25 12:14 Last Admin: 03/12/25 08:44 Dose: 1,250 mg Documented By: Admin: 03/11/25 07:57 Dose: 1,250 mg Documented By: Admin: 03/10/25 07:46 Dose: 1,250 mg Documented By: Admin: 03/09/25 08:07 Dose: 1,250 mg Documented By: Admin: 03/08/25 14:16 Dose: 1,250 mg Documented By: MARTHA Melatonin (Melatonin 3 Mg Tab) 3 mg PO HS PRN PRN Reason: Sleep Stop: 04/09/25 15:45 Last Admin: 03/11/25 20:26 Dose: 3 mg Documented By: Admin: 03/10/25 20:15 Dose: 3 mg Documented By: DERRICK Metoprolol Tartrate (Metoprolol Tartrate 25 Mg Tab) 12.5 mg PO BID TAIWO Stop: 04/05/25 20:59 Last Admin: 03/12/25 08:44 Dose: 12.5 mg Documented By: Admin: 03/11/25 20:25 Dose: 12.5 mg Documented By: Admin: 03/11/25 07:58 Dose: 12.5 mg Documented By: Admin: 03/10/25 20:14 Dose: 12.5 mg Documented By: Admin: 03/10/25 07:46 Dose: 12.5 mg Documented By: Admin: 03/09/25 20:28 Dose: 12.5 mg Documented By: Admin: 03/09/25 08:06 Dose: 12.5 mg Documented By: Admin: 03/08/25 21:10 Dose: 12.5 mg Documented By: Admin: 03/08/25 08:29 Dose: 12.5 mg Documented By: Admin: 03/07/25 20:54 Dose: 12.5 mg Documented By: Admin: 03/07/25 08:13 Dose: 12.5 mg Documented By: Admin: 03/06/25 22:54 Dose: Not Given Documented By: GARY Multivitamins (Multivitamin Tab) 1 tab PO QAM TAIWO Stop: 04/06/25 08:59 Last Admin: 03/12/25 08:44 Dose: 1 tab Documented By: Admin: 03/11/25 07:58 Dose: 1 tab Documented By: Admin: 03/10/25 07:47 Dose: 1 tab Documented By: Admin: 03/09/25 08:07 Dose: 1 tab Documented By: Admin: 03/08/25 08:29 Dose: 1 tab Documented By: Admin: 03/07/25 08:13 Dose: 1 tab Documented By: JUJU Olanzapine (Olanzapine 10 Mg/2.1 Ml Sdv) 2.5 mg IM NOW STA Stop: 03/07/25 02:10 Last Admin: 03/07/25 02:17 Dose: 2.5 mg Documented By: JOSSE Olanzapine (Olanzapine Zydis 5 Mg Orally Dis. Tab) 5 mg PO NOW STA Stop: 03/08/25 00:34 Last Admin: 03/08/25 01:07 Dose: 5 mg Documented By: CEFERINO Ondansetron HCl (Ondansetron Inj 2 Mg/Ml 2 Ml Vial) 4 mg IV Q6H PRN PRN Reason: Nausea Stop: 04/05/25 20:50 Last Admin: 03/07/25 01:49 Dose: 4 mg Documented By: DAT Oxycodone/Acetaminophen (Oxycodone/Acetaminophen 5mg/325mg Tab) 1 tab PO Q4H PRN PRN Reason: Mod-Sev Pain (Scale 4-10) Stop: 03/20/25 19:08 Last Admin: 03/06/25 21:36 Dose: 1 tab Documented By: GARY Oxycodone/Acetaminophen (Oxycodone/Acetaminophen 5mg/325mg Tab) 1 tab PO Q8H PRN PRN Reason: Pain Stop: 03/21/25 15:26 Last Admin: 03/07/25 23:18 Dose: 1 tab Documented By: CEFERINO Oxycodone/Acetaminophen (Oxycodone/Acetaminophen 5mg/325mg Tab) 0.5 tab PO Q8H PRN PRN Reason: mod -severe Pain (4-10) Stop: 03/21/25 15:26 Last Admin: 03/11/25 07:56 Dose: 0.5 tab Documented By: Admin: 03/10/25 07:51 Dose: 0.5 tab Documented By: STEFANIE Pantoprazole Sodium (Pantoprazole 40 Mg Tab) 40 mg PO DAILYBB [facility] Stop: 04/06/25 06:29 Last Admin: 03/12/25 04:33 Dose: 40 mg Documented By: Admin: 03/11/25 06:17 Dose: 40 mg Documented By: Admin: 03/10/25 05:49 Dose: 40 mg Documented By: Admin: 03/09/25 06:00 Dose: 40 mg Documented By: Admin: 03/08/25 05:26 Dose: 40 mg Documented By: Admin: 03/07/25 06:28 Dose: 40 mg Documented By: JOSSE Polyethylene Glycol (Polyethylene (Miralax) 17 Gm Pack) 17 gm PO DAILY TAIWO Stop: 04/06/25 08:59 Last Admin: 03/12/25 08:51 Dose: 17 gm Documented By: Admin: 03/11/25 08:14 Dose: 17 gm Documented By: Admin: 03/10/25 07:47 Dose: 17 gm Documented By: Admin: 03/09/25 08:06 Dose: 17 gm Documented By: Admin: 03/08/25 08:29 Dose: 17 gm Documented By: Admin: 03/07/25 08:16 Dose: 17 gm Documented By: JUJU Pravastatin Sodium (Pravastatin Sod 40 Mg Tab) 40 mg PO QPM TAIWO Stop: 04/05/25 20:59 Last Admin: 03/11/25 20:25 Dose: 40 mg Documented By: Admin: 03/10/25 20:14 Dose: 40 mg Documented By: Admin: 03/09/25 20:29 Dose: 40 mg Documented By: Admin: 03/08/25 21:10 Dose: 40 mg Documented By: Admin: 03/07/25 20:54 Dose: 40 mg Documented By: Admin: 03/06/25 21:53 Dose: 40 mg Documented By: GARY Vitamin D (Cholecalciferol 25 Mcg (1000 Units) Tab) 25 mcg PO DAILY TAIWO Stop: 04/06/25 08:59 Last Admin: 03/12/25 08:44 Dose: 25 mcg Documented By: Admin: 03/11/25 07:57 Dose: 25 mcg Documented By: Admin: 03/10/25 07:47 Dose: 25 mcg Documented By: Admin: 03/09/25 08:07 Dose: 25 mcg Documented By: Admin: 03/08/25 08:29 Dose: 25 mcg Documented By: Admin: 03/07/25 08:13 Dose: 25 mcg Documented By: JUJU Imaging Data Radiologist's Impression: Chest X-Ray 03/06/25 15:53 EXAM: Portable AP chest radiograph TECHNIQUE: AP portable radiograph of the chest was obtained. INDICATION: Shortness of breath Comparison: Chest radiograph January 08, 2023 FINDINGS: LINES and TUBES: CARDIOVASCULAR: Cardiac silhouette is stably and mildly enlarged in size. Atherosclerosis of the thoracic aorta. LUNGS/PLEURA: No focal consolidation identified. Chronic interstitial lung changes. No significant pleural fluid. No discernible pneumothorax. OSSEOUS/OTHER: No displaced acute osseous process identified. Bilateral shoulder reverse arthroplasties. IMPRESSION: No radiographic evidence of acute cardiopulmonary process. Electronically signed by Charly Fischer 03-06-2025 4:39 PM Abdomen/Pelvis CT 03/06/25 15:54 CT ABDOMEN and PELVIS with INTRAVENOUS CONTRAST HISTORY: Abdominal pain TECHNIQUE: CT abdomen and pelvis with contrast. IV CONTRAST: 100 mL of OMNIPAQUE 300 ENTERIC CONTRAST: Not Given COMPARISON: None FINDINGS: LOWER CHEST: Please see separately dictated thoracic CT report LIVER: No focal lesion identified. Hepatic steatosis and hepatomegaly GALLBLADDER/BILIARY: Surgically absent gallbladder. Mild intrahepatic biliary dilation and prominent caliber to the common bile duct may be an expected finding following cholecystectomy and allowing for patient age. SPLEEN: Unremarkable. PANCREAS: Atrophic parenchyma without discrete mass.. ADRENALS: Unremarkable. KIDNEYS: Small cortical cysts. No stones or hydronephrosis identified. PERITONEUM/RETROPERITONEUM. No lymphadenopathy by size criteria. No aortic aneurysm. Extensive atherosclerosis with stenoses of the celiac trunk, SMA, the renal arteries and the [place]. Small presacral fluid that is nonspecific GASTROINTESTINAL: No obstruction. Colonic diverticulosis without evidence of diverticulitis. REPRODUCTIVE: Poorly evaluated due to obscuration by streak artifact. No obvious suspicious pelvic masses identified. BONES: Please refer to separately dictated left hip CT report for additional findings. Multiple chronic appearing mild compression deformities of the lumbar spine. No significant retropulsion is identified IMPRESSION: No evidence of acute visceral trauma to the abdomen or the pelvis. Electronically signed by Charly Fischer 03-06-2025 5:[address] 03/06/25 15:54 CT CERVICAL SPINE WITHOUT CONTRAST: HISTORY: TRAUMA TECHNIQUE: Noncontrast CT examination of the cervical spine is performed. Coronal and sagittal reformats were created. COMPARISON: Cervical spine CT June 06, 2022 FINDINGS: CERVICAL SPINE: There is no significant vertebral body height loss. No acute traumatic fracture identified. There is no significant spondylolisthesis. Multilevel degenerative changes characterized by disc osteophyte complex, bilateral facet and uncovertebral hypertrophy resulting and neural foraminal narrowing at multiple levels, worst at mid to lower spine. Visualized soft tissues of neck are unremarkable. IMPRESSION: No acute traumatic fracture of the cervical spine. Multilevel degenerative changes as above Electronically signed by Charly Fischer 03-06-2025 5:[address] 03/06/25 15:54 Clinical history: Fall Technique: Axial computed tomography images were obtained of the chest after the administration of intravenous contrast Comparison is made to the prior CT dated 12/23/2019 Findings: There is an unchanged 4 mm left lower lobe nodule. There is unchanged linear opacity along the left major fissure. There are unchanged small peripheral nodular opacities in the right upper lobe. There is no definite change in a 3 mm nodular opacity in the right lower lobe. There is no pleural effusion or pneumothorax. There are irregular opacities in the lung apices, likely due to pleural parenchymal scarring. No endobronchial lesion is seen There is no mediastinal, hilar, or axillary adenopathy. The thoracic aorta appears unremarkable with no sign of aneurysm or dissection. There is no pericardial effusion. There is coronary atherosclerosis There is a 1 cm nodule in the left thyroid lobe No fracture is seen. No focal osseous lesion is evident. There are bilateral shoulder arthroplasties Impression: 1. Several unchanged pulmonary nodules, benign given the long-term stability 2. Indeterminate thyroid nodule. A thyroid ultrasound could be obtained for further evaluation 3. Coronary atherosclerosis ACT 112: Positive. There are findings on this exam that require communication between the performing entity and the patient following Patient Test Result Information Act ([place] ACT 112) guidelines. Electronically signed by Cory Alcantar 03-06-2025 5:[address] 03/06/25 15:54 Clinical History: Fall Technique: Axial computed tomography images were obtained of the brain without intravenous contrast. Comparison is made to the prior CT dated 12/24/2019 Findings: There is unchanged cerebral atrophy, within expected limits for the patient's age. Areas of decreased attenuation are seen within the periventricular white matter, likely representing chronic small vessel ischemic disease. There are calcifications along the falx cerebri. There is no definite sign of acute or old infarction. No intracranial hemorrhage is evident. No definite mass lesion is seen on this noncontrast examination. There is no midline shift or other form of herniation. No hydrocephalus is seen. No fracture is identified. The orbits and the visualized paranasal sinuses appear unremarkable. The mastoid air cells appear clear. Impression: 1. Cerebral atrophy and chronic small vessel ischemic disease 2. Otherwise unremarkable noncontrast CT of the brain Electronically signed by Cory Alcantar 03-06-2025 5:[address] 03/06/25 15:57 CT LEFT HIP WITHOUT CONTRAST: HISTORY: Trauma TECHNIQUE: CT of the left hip was obtained without intravenous contrast. Coronal and sagittal reformats were created. COMPARISON: None FINDINGS: There are multifocal acute traumatic fractures involving the left pubic bone resulting in mild impaction. Acute traumatic fracture of the left inferior pubic ramus. Intramuscular hematomas in the abutting adductor muscles Patient is status post left hip arthroplasty with components in anatomic alignment. IMPRESSION: Multifocal acute traumatic fractures of the left pubic bone resulting mild impaction. Acute traumatic fracture of the left inferior pubic ramus. Intact left hip arthroplasty with components in anatomic alignment. Electronically signed by Charly Fischer 03-06-2025 5:38 PM Discharge Plan Visit Data Chief Complaint: Hip Pain Stated Complaint: FALL ED Provider: Pietro Maurice ED Midlevel Provider: Charline Amaro Discharge Problem: Pubic bone fracture, Closed fracture of ramus of left pubis Patient Disposition: Admitted As Inpatient Condition: Good Discharge Instructions Interventions: ED Discharge Assessment Last Done: 03/06/25 20:51 Discharge Problem: Pubic bone fracture Qualifiers: Encounter type: initial encounter Sublocation of pubis: unspecified portion of pubis Fracture type: closed Laterality: left Qualified Code(s): S32.502A - Unspecified fracture of left pubis, initial encounter for closed fracture Closed fracture of ramus of left pubis Qualifiers: Encounter type: initial encounter Qualified Code(s): S32.592A - Other specified fracture of left pubis, initial encounter for closed fracture
--- NOTE | 2025-03-06 18:13 | History & Physical Report ---
Date of Service March 06, 2025 Assessment & Plan (1) Ground-level fall: (2) Pubic bone fracture: (3) Inferior pubic ramus fracture: (4) Abnormal urinalysis: Plan Patient is an 89-year-old female with past medical history significant for HLD, HTN, history of NSTEMI in December 2019 s/p cardiac catheterization with culprit vessel small AV groove portion of the left circumflex with subtotal occlusion [not amenable to stenting], CAD with mild to moderate diffuse coronary atherosclerosis as per cardiac catheterization in December 2019, history of remote LAD stent placement, history of ischemic cardiomyopathy with preserved LV systolic function and resting RWMA including apical/septal/apical anterior inferior hypokinesis, chronic venous insufficiency, chronic lymphedema, Raynaud's disease, vitamin B12 deficiency, generalized osteoarthritis, history of bilateral hip arthroplasties, moderate late onset Alzheimer's dementia, anxiety and other problems listed below who presented to the ED via EMS with complaint of left hip pain after sustaining a ground-level fall and was found to have multifocal acute traumatic fractures of the left pubic bone and an acute traumatic of the left inferior pubic ramus. Additional imaging including CXR, CTAP, cervical spine CT, chest CT and head CT w/o any additional traumatic findings. #L pubic bone fxs & L interior pubic ramus fx s/p unwitnessed GLF L hip CT: multifocal acute traumatic fxs of the left pubic bone resulting in mild impaction, acute traumatic fx of the left inferior pubic ramus Ortho consult -If surgery indicated, pt would likely need cardiac clearance given her cardiac hx w/ prior stenting Place Llamas catheter for now ISO limited mobility 2/2 acute fxs PRN pain control w/ po Percocet, IV Dilaudid for breakthrough -Pt unable to tolerate morphine, fentanyl --> per pt's daughter, both meds cause her to become agitated -Bowel regimen ordered PT/OT evals Fall precautions --> OOB w/ assistance only Likely underlying age-related osteoporosis --> check vit D level in AM, continue supplementation #Abnormal UA c/f poss UTI Pt w/o urinary sx; however pt's daughter states she's prev been asymptomatic w/ UTIs before Will cover empirically w/ IV Rocephin for now --> follow urine cx #HTN Continue BB w/ hold parameters #CAD w/ remote h/o of bare-metal LAD stent placement in 2000 #H/o NSTEMI in 2019 s/p cath with culprit vessel small AV groove portion of the left circumflex with subtotal occlusion [not amenable to stenting] #H/o ischemic cardiomyopathy with preserved LV systolic function and resting RWMA including apical/septal/apical anterior inferior hypokinesis F/w [facility] cards EKG unchanged from prior Continue ASA, BB, statin #Chronic lymphedema Hold HCTZ for now #GERD Continue PPI #Pulmonary nodules Appear unchanged from prior imaging #Incidental CTAP finding Indeterminate thyroid nodule --> will need outpt thyroid US >> PCP can arrange DVT Prophylaxis: SCDs/TEDs for now PCP: Gee Gamez DO Disposition: Admit to med/tele Patient seen in collaboration with Dr. Neff. Please see addendum. I spent a total of 64 minutes coordinating, documenting, and providing care for this patient excluding time spent in the performance of separately billed services or time spent by another provider/QHP. This included personally reviewing all current laboratories and imaging studies, medical reconciliation, outpatient chart review and discussion with specialists. This chart was completed in part utilizing Speech Voice Recognition Software. Grammatical errors, random word insertions, pronoun errors, and incomplete sentences are an occasional consequence of this system due to software limitations, ambient noise, and hardware issues. Any formal questions or concerns about the content, text, or information contained within the body of this dictation should be directly addressed to the provider for clarification. History of Present Illness Chief Complaint: L hip pain s/p GLF Primary Care Provider: Gee Gamez DO Patient is an 89-year-old female with past medical history significant for HLD, HTN, history of NSTEMI in December 2019 s/p cardiac catheterization with culprit vessel small AV groove portion of the left circumflex with subtotal occlusion [not amenable to stenting], CAD with mild to moderate diffuse coronary atherosclerosis as per cardiac catheterization in December 2019, history of remote LAD stent placement, chronic venous insufficiency, Raynaud's disease, vitamin B12 deficiency, generalized osteoarthritis, moderate late onset Alzheimer's dementia, anxiety and other problems listed below who presented to the ED via EMS with complaint of left hip pain after sustaining a ground-level fall. History obtained from the patient, family at bedside, discussion with ED provider and associated chart review. Patient seen at bedside with Dr. Neff. Unwitnessed GLF at home while ambulating in the kitchen. Currently lives at home with her . No reported LOC or head strike. No blood thinner use. Patient' s was home to call EMS as patient was unable to get up off the floor due to significant left hip pain. Patient had been complaining of a mild headache on arrival as well however this has improved with IV Tylenol. Patient denies any significant amount of pain in the left hip at rest. Patient denies any chest pain, SOB or abdominal pain. Allergies Allergy/AdvReac Type Severity Reaction Status Date / Time amoxicillin Allergy Intermediate RASH Verified 03/06/25 17:23 losartan Allergy Intermediate RASH/SWELLING Verified 03/06/25 17:23 OF LEGS Penicillins Allergy Intermediate RASH Verified 03/06/25 17:23 adhesive Allergy Mild TAPES-REDDENED Verified 03/06/25 17:23 RASH latex Allergy Mild RED HANDS Verified 03/06/25 17:23 WITH GLOVES Nicuhec-HGX-QbV Reductase Allergy Unknown Unknown Verified 03/06/25 17:23 Inhibitor [Xremrhv-Nkw-Cen Reductase Inhibitor] ciprofloxacin AdvReac Severe "sick" Verified 03/06/25 17:23 morphine AdvReac Severe Vomiting Verified 03/06/25 17:23 THAD Inhibitors AdvReac Intermediate Cough Verified 03/06/25 17:23 fentanyl AdvReac Intermediate FAINTED Verified 03/06/25 17:23 Home Medications Medication Instructions Recorded Confirmed Type multivitamin 1 tab PO DAILY 12/23/19 03/06/25 History omega 9-raj-jcz-fish oil 1,000 mg 1 cap PO QPM 12/23/19 03/06/25 History (120 mg-180 mg) capsule (Fish Oil) aspirin 81 mg tablet,delayed 81 mg PO DAILY 01/08/23 03/06/25 History release oxycodone 5 mg tablet 5 mg PO Q12H PRN Severe Pain 01/08/23 03/06/25 History (Scale Score 7-10) metoprolol tartrate 25 mg tablet 12.5 mg PO BID 01/17/24 03/06/25 History Beet Root 1 dose PO DAILY 03/06/25 03/06/25 History acetaminophen 500 mg tablet 500 mg PO Q6H PRN PAIN/FEVER 03/06/25 03/06/25 History (Tylenol Extra Strength) bisacodyl 5 mg tablet 5 mg PO DAILY PRN Constipation 03/06/25 03/06/25 History cholecalciferol (vitamin D3) 25 25 mcg PO DAILY 03/06/25 03/06/25 History mcg (1,000 unit) capsule (Vitamin D3) coQ10 (ubiquinol) 200 mg capsule 200 mg PO QPM 03/06/25 03/06/25 History coffee extract 100 mg-phosphatidyl 1 cap PO QPM 03/06/25 03/06/25 History serine 100 mg capsule (Neuriva Original) cyanocobalamin (vitamin B-12) 500 500 mcg PO Q OTHER DAY 03/06/25 03/06/25 History mcg tablet (Vitamin B-12) fluticasone propionate 50 2 spray intranasal DAILY PRN Nasal 03/06/25 03/06/25 History mcg/actuation nasal Congestion spray,suspension food supplemt, lactose-reduced 1 ea PO DIRECTED 03/06/25 03/06/25 History (Ensure High Protein oral liquid) hydrochlorothiazide 12.5 mg capsule 12.5 mg PO .2-3XWK 03/06/25 03/06/25 History nitroglycerin 0.4 mg sublingual 0.4 mg sublingual DIRECTED PRN 03/06/25 03/06/25 History tablet (Nitrostat) Chest Pain ondansetron 4 mg disintegrating 4 mg translingual Q8H PRN 03/06/25 03/06/25 History tablet NAUSEA/VOMITING pantoprazole 40 mg tablet,delayed 40 mg PO DAILYBB 03/06/25 03/06/25 History release pravastatin 40 mg tablet 40 mg PO QPM 03/06/25 03/06/25 History pyridoxine (vitamin B6) 50 mg 50 mg PO DAILY 03/06/25 03/06/25 History tablet (Vitamin B-6) simethicone 80 mg chewable tablet 80 mg PO Q6H PRN GAS DISCOMFORT 03/06/25 03/06/25 History sodium chloride 0.65 % nasal spray 1 spray intranasal DAILY PRN 03/06/25 03/06/25 History aerosol (Saline Nasal) Congestion Past Med/Surg History Problem List Abnormal urinalysis Inferior pubic ramus fracture Ground-level fall Closed fracture of ramus of left pubis (Acute) Pubic bone fracture (Acute) Hallux valgus (acquired), right foot Pain in left foot Hammertoe of right foot Pain in foot Inclusion cyst Osteitis pubis Right groin pain Traumatic open wound of great toe with delayed healing (Acute) Delirium DVT prophylaxis Atypical chest pain (Acute) Elevated troponin (Acute) Non-ST elevation SD (NSTEMI) (Acute) CAD (coronary atherosclerotic disease) Hypercholesterolemia Hypertension Degenerative joint disease (DJD) of hip (Acute) Surgical History History of shoulder surgery History of cataract extraction History of inguinal hernia repair, bilateral History of ankle joint replacement Left History of bilateral total hip arthroplasty History of hysterectomy History of colonoscopy with polypectomy History of carpal tunnel surgery of right wrist History of placement of stent in LAD coronary artery Chronic CAD with s/p PCI stent to mid LAD with bare metal stent May 2001. 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 Family History Mother , at 89 Asthma Father , 100 Prostate cancer Social History Smoking Status: Never smoker Hx Alcohol Use: Yes Alcohol type: beer Hx Substance Use: No Preferred Language: Setswana Communication Ability: Effective Aligning Inspector Required: No Beliefs That Will Affect Care: Nondenominational marital status: Current Living Situation: Spouse current occupational status: retired Other Information That Helps Us Care for You: No other: Ambulates with a cane Feels Safe at Home: Yes Safety Concerns: Feels Safe At This Time Assistive Devices: Glasses and Walker Review of Systems Review of Systems: At least ten systems reviewed and negative, except as noted in the HPI. Physical Exam Physical Exam: Please refer to Dr. Neff's addendum for physical examination findings. Results & Data Results & Data Vital Signs (Past 12 Hours) Vital Signs Pulse Resp BP Pulse Ox O2 Del Method 03/06/25 17:15 91 H 18 94 Room Air 03/06/25 15:27 80 03/06/25 15:01 81 17 132/72 97 Room Air Laboratory Results Short CBC 03/06/25 Range/Units 15:57 WBC 10.55 (4.8-10.8) K/ul Hgb 13.1 (12.0-16.0) g/dl Hct 39.1 (37.0-47.0) % Plt Count 238 (130-400) K/uL BMP 03/06/25 15:57 Sodium 141 Potassium 4.4 Chloride 105 Carbon Dioxide 32 BUN 17 Creatinine 0.58 L Glucose 95 Calcium 9.3 Liver Function 03/06/25 Range/Units 15:57 Total Bilirubin 0.6 (0.2-1.0) mg/dl AST 27 (13-39) U/L ALT 18 (7-52) U/L Alkaline Phosphatase 70 (34-104) U/L Albumin 4.0 (3.4-5.0) gm/dl Urine 03/06/25 Range/Units 16:40 Urine Color Yellow Urine Appearance Clear (Clear) Urine pH 5.5 (4.5-7.5) Ur Specific Reading 1.022 (1.000-1.030) Urine Protein Negative (Negative) Urine Glucose (UA) Negative (Negative) Diagnostic Findings Chest X-Ray 03/06/25 15:53 EXAM: Portable AP chest radiograph TECHNIQUE: AP portable radiograph of the chest was obtained. INDICATION: Shortness of breath Comparison: Chest radiograph January 08, 2023 FINDINGS: LINES and TUBES: CARDIOVASCULAR: Cardiac silhouette is stably and mildly enlarged in size. Atherosclerosis of the thoracic aorta. LUNGS/PLEURA: No focal consolidation identified. Chronic interstitial lung changes. No significant pleural fluid. No discernible pneumothorax. OSSEOUS/OTHER: No displaced acute osseous process identified. Bilateral shoulder reverse arthroplasties. IMPRESSION: No radiographic evidence of acute cardiopulmonary process. Electronically signed by Charly Fischer 03-06-2025 4:39 PM Abdomen/Pelvis CT 03/06/25 15:54 CT ABDOMEN and PELVIS with INTRAVENOUS CONTRAST HISTORY: Abdominal pain TECHNIQUE: CT abdomen and pelvis with contrast. IV CONTRAST: 100 mL of OMNIPAQUE 300 ENTERIC CONTRAST: Not Given COMPARISON: None FINDINGS: LOWER CHEST: Please see separately dictated thoracic CT report LIVER: No focal lesion identified. Hepatic steatosis and hepatomegaly GALLBLADDER/BILIARY: Surgically absent gallbladder. Mild intrahepatic biliary dilation and prominent caliber to the common bile duct may be an expected finding following cholecystectomy and allowing for patient age. SPLEEN: Unremarkable. PANCREAS: Atrophic parenchyma without discrete mass.. ADRENALS: Unremarkable. KIDNEYS: Small cortical cysts. No stones or hydronephrosis identified. PERITONEUM/RETROPERITONEUM. No lymphadenopathy by size criteria. No aortic aneurysm. Extensive atherosclerosis with stenoses of the celiac trunk, SMA, the renal arteries and the [place]. Small presacral fluid that is nonspecific GASTROINTESTINAL: No obstruction. Colonic diverticulosis without evidence of diverticulitis. REPRODUCTIVE: Poorly evaluated due to obscuration by streak artifact. No obvious suspicious pelvic masses identified. BONES: Please refer to separately dictated left hip CT report for additional findings. Multiple chronic appearing mild compression deformities of the lumbar spine. No significant retropulsion is identified IMPRESSION: No evidence of acute visceral trauma to the abdomen or the pelvis. Electronically signed by Charly Fischer 03-06-2025 5:[address] 03/06/25 15:54 CT CERVICAL SPINE WITHOUT CONTRAST: HISTORY: TRAUMA TECHNIQUE: Noncontrast CT examination of the cervical spine is performed. Coronal and sagittal reformats were created. COMPARISON: Cervical spine CT June 06, 2022 FINDINGS: CERVICAL SPINE: There is no significant vertebral body height loss. No acute traumatic fracture identified. There is no significant spondylolisthesis. Multilevel degenerative changes characterized by disc osteophyte complex, bilateral facet and uncovertebral hypertrophy resulting and neural foraminal narrowing at multiple levels, worst at mid to lower spine. Visualized soft tissues of neck are unremarkable. IMPRESSION: No acute traumatic fracture of the cervical spine. Multilevel degenerative changes as above Electronically signed by Charly Fischer 03-06-2025 5:[address] 03/06/25 15:54 Clinical history: Fall Technique: Axial computed tomography images were obtained of the chest after the administration of intravenous contrast Comparison is made to the prior CT dated 12/23/2019 Findings: There is an unchanged 4 mm left lower lobe nodule. There is unchanged linear opacity along the left major fissure. There are unchanged small peripheral nodular opacities in the right upper lobe. There is no definite change in a 3 mm nodular opacity in the right lower lobe. There is no pleural effusion or pneumothorax. There are irregular opacities in the lung apices, likely due to pleural parenchymal scarring. No endobronchial lesion is seen There is no mediastinal, hilar, or axillary adenopathy. The thoracic aorta appears unremarkable with no sign of aneurysm or dissection. There is no pericardial effusion. There is coronary atherosclerosis There is a 1 cm nodule in the left thyroid lobe No fracture is seen. No focal osseous lesion is evident. There are bilateral shoulder arthroplasties Impression: 1. Several unchanged pulmonary nodules, benign given the long-term stability 2. Indeterminate thyroid nodule. A thyroid ultrasound could be obtained for further evaluation 3. Coronary atherosclerosis ACT 112: Positive. There are findings on this exam that require communication between the performing entity and the patient following Patient Test Result Information Act ([place] ACT 112) guidelines. Electronically signed by Coyr Alcantar 03-06-2025 5:[address] 03/06/25 15:54 Clinical History: Fall Technique: Axial computed tomography images were obtained of the brain without intravenous contrast. Comparison is made to the prior CT dated 12/24/2019 Findings: There is unchanged cerebral atrophy, within expected limits for the patient's age. Areas of decreased attenuation are seen within the periventricular white matter, likely representing chronic small vessel ischemic disease. There are calcifications along the falx cerebri. There is no definite sign of acute or old infarction. No intracranial hemorrhage is evident. No definite mass lesion is seen on this noncontrast examination. There is no midline shift or other form of herniation. No hydrocephalus is seen. No fracture is identified. The orbits and the visualized paranasal sinuses appear unremarkable. The mastoid air cells appear clear. Impression: 1. Cerebral atrophy and chronic small vessel ischemic disease 2. Otherwise unremarkable noncontrast CT of the brain Electronically signed by Cory Alcantar 03-06-2025 5:[address] 03/06/25 15:57 CT LEFT HIP WITHOUT CONTRAST: HISTORY: Trauma TECHNIQUE: CT of the left hip was obtained without intravenous contrast. Coronal and sagittal reformats were created. COMPARISON: None FINDINGS: There are multifocal acute traumatic fractures involving the left pubic bone resulting in mild impaction. Acute traumatic fracture of the left inferior pubic ramus. Intramuscular hematomas in the abutting adductor muscles Patient is status post left hip arthroplasty with components in anatomic alignment. IMPRESSION: Multifocal acute traumatic fractures of the left pubic bone resulting mild impaction. Acute traumatic fracture of the left inferior pubic ramus. Intact left hip arthroplasty with components in anatomic alignment. Electronically signed by Charly Fischer 03-06-2025 5:38 PM Medications Administered Discontinued Medications Acetaminophen (Acetaminophen 1000 Mg/100 Ml Iv) Confirm Administered Dose 1,000 mg IV .STK-MED ONE Stop: 03/06/25 17:48 Last Admin: 03/06/25 17:49 Dose: Not Given Documented By: CLYDE Acetaminophen (Ofirmev) 1,000 mg in 100 mls @ 400 mls/hr IV NOW STA Stop: 03/06/25 17:59 Last Admin: 03/06/25 17:49 Dose: 400 mls/hr Documented By: CLYDE Ioversol (Optiray 320 100ml) 93 ml IV ONCE ONE Stop: 03/06/25 16:52 Last Admin: 03/06/25 16:53 Dose: 93 ml Documented By: EAB Code Status & VTE Plan Code Status FULL CODE - As per d/w the patient and her family at bedside. Supervising Physician Co-Signing Physician Notes Patient is an 89-year-old female with history of hypertension, hyperlipidemia, coronary artery disease, dementia and other medical problems presents with left hip pain after ground-level fall which was unwitnessed. Patient denies any dizziness, nausea, palpitations, chest pain. Please review HPI for complete details of presentation. I personally reviewed blood work and imaging studies. UA suggestive of UTI. Imaging studies suggestive of multifocal acute traumatic fractures of the left left pubic bone resulting mild impaction, acute fracture of left inferior pubic ramus. Intact left hip arthroplasty hardware. CT head showed cerebral atrophy with chronic small vessel ischemic disease. Physical Exam: Vitals signs as noted above General Appearance: Thin, frail, elderly, no apparent distress Head: normocephalic, Atraumatic Eyes: normal inspection, EOMI Neck: supple, Trachea midline Respiratory/Chest: Normal breath sounds, CTA, No accessory muscle use Cardiovascular: S1, S2, +murmur Abdomen/GI:Soft, Non tender, Bowel sounds present Extremities/Musculoskeletal:normal inspection, 1+ LE edema , left hip decreased ROM Neurologic/Psych:AAOX2, grossly no focal neurological deficits Skin: normal color, warm Pelvic fracture Secondary to fall Suspected UTI Pulmonary nodules Thyroid nodule Orthopedics consulted Pain control as needed PT OT, fall precaution Empirically started on Rocephin Follow-up cultures Check TSH Needs follow up as outpatient for further evaluation of pulmonary nodules, thyroid nodule I personally interviewed and examined the patient at bedside. I have reviewed the advanced practitioner's documentation on the date of service referred in note and agree with plan. Patient's care is coordinated with Jessica Lu PA-C. Please refer to the documentation above for details of patient's presentation and for discussion of other issues. I spent a total [id number] coordinating, documenting, and providing care for this patient excluding time spent in the performance of separately billed services or time spent by another provider/QHP. (2) Pubic bone fracture Encounter type: initial encounter Fracture type: closed Laterality: left Sublocation of pubis: unspecified portion of pubis Qualified Code(s): S32.502A - Unspecified fracture of left pubis, initial encounter for closed fracture (3) Inferior pubic ramus fracture Encounter type: initial encounter Fracture type: closed Laterality: left Qualified Code(s): S32.592A - Other specified fracture of left pubis, initial encounter for closed fracture
[2025-03-06] MEDS: cefTRIAXone SODIUM 2,000 MG/50 ML BAG IV STA (19:55)
[2025-03-06] MEDS ORDERED: MAGNESIUM HYDROXIDE SUSP 30 ML UDC PO PRN (20:51)
[2025-03-06] MEDS: PRAVASTATIN SOD 40 MG TAB PO SCH (21:53)
[2025-03-06] MEDS: METOPROLOL TARTRATE 25 MG TAB PO SCH (22:54)
[2025-03-07] MEDS: HYDROmorphone INJ 1 MG/ML SYRINGE IV PRN (01:18)
[2025-03-07] MEDS: ONDANSETRON INJ 2 MG/ML 2 ML VIAL IV PRN (01:49)
[2025-03-07 04:40] LABS: Hematocrit (blood only) 35.2 % (37.0-47.0); Hemoglobin 11.6 g/dl (12.0-16.0); Immature Granulocytes # (auto) 0.02 K/uL (0.01-0.20); Immature Granulocytes % (auto) 0.3 %; Mean Corpuscular Hemoglobin 32.0 pg (25.0-34.0); Mean Corpuscular Volume 97.0 fL (80.0-100.0); Platelet Count 184 K/uL (130-400); RDW Standard Deviation 49.5 fL (36.4-46.3); Red Blood Count 3.63 M/uL (4.20-5.40); White Blood Count 7.64 K/ul (4.8-10.8)
[2025-03-07 05:13] LABS: Thyroid Stimulating Hormone 2.211 uIu/ml (0.300-4.500)
[2025-03-07 05:53] LABS: Anion Gap 8.0 (3-11); Bilirubin,Total 0.8 mg/dl (0.2-1.0); Calcium 8.5 mg/dl (8.6-10.3); Carbon Dioxide 27.0 mmol/L (21-32); Chloride 107.0 mmol/L (98-107); Magnesium 1.8 mg/dl (1.7-2.4); Potassium 3.6 mmol/L (3.5-5.1); Sodium 142.0 mmol/L (136-145)
[2025-03-07 05:59] LABS: Alanine Aminotransferase 23.0 U/L (7-52); Albumin Globulin Ratio 1.3 (0.9-2); Alkaline Phosphatase 61.0 U/L (34-104); Blood Urea Nitrogen 15.0 mg/dl (6-23); Creatinine Clr Calc Pharmacy 69.9 ml/min; Globulin 2.6 gm/dl (2.5-4.0); Glucose 124.0 mg/dl (70-99(Fasting)); Total Protein 6.1 gm/dl (6.0-8.3)
[2025-03-07] MEDS: ASPIRIN 81 MG ECTAB PO SCH (08:12)
[2025-03-07] MEDS: CHOLECALCIFEROL 25 MCG (1000 UNITS) TAB PO SCH (08:13)
[2025-03-07] MEDS: MULTIVITAMIN TAB PO SCH (08:13)
[2025-03-07] MEDS: POLYETHYLENE (MIRALAX) 17 GM PACK PO SCH (08:16)
--- NOTE | 2025-03-07 08:52 | Hospitalist Progress Note ---
Date of Service March 07, 2025 Assessment & Plan (1) Ground-level fall: (2) Pubic bone fracture: (3) Inferior pubic ramus fracture: (4) Abnormal urinalysis: Plan Patient is an 89-year-old female with past medical history significant for HLD, HTN, history of NSTEMI in December 2019 s/p cardiac catheterization with culprit vessel small AV groove portion of the left circumflex with subtotal occlusion [not amenable to stenting], CAD with mild to moderate diffuse coronary atherosclerosis as per cardiac catheterization in December 2019, history of remote LAD stent placement, history of ischemic cardiomyopathy with preserved LV systolic function and resting RWMA including apical/septal/apical anterior inferior hypokinesis, chronic venous insufficiency, chronic lymphedema, Raynaud's disease, vitamin B12 deficiency, generalized osteoarthritis, history of bilateral hip arthroplasties, moderate late onset Alzheimer's dementia, anxiety and other problems listed below who presented to the ED via EMS with complaint of left hip pain after sustaining a ground-level fall and was found to have multifocal acute traumatic fractures of the left pubic bone and an acute traumatic of the left inferior pubic ramus. Additional imaging including CXR, CTAP, cervical spine CT, chest CT and head CT w/o any additional traumatic findings. L pubic bone fxs & L interior pubic ramus fx: s/p unwitnessed GLF L hip CT: multifocal acute traumatic fxs of the left pubic bone resulting in mild impaction, acute traumatic fx of the left inferior pubic ramus Ortho consult; no surgery indicated WBAT with walker + max assist; Fall precautions Patient to have soft easy wrap [facility] ortho f/u 3-4 weeks gary for immobility; consider removal and badpan use 03/08 PRN pain control: Scheduled tylenol x3 days Avoid narcotics given advanced age and underlying cognitive impairment -Pt unable to tolerate morphine, fentanyl --> per pt's daughter, both meds cause her to become agitated Takes oxy ad a home med bowel regimen ordered Likely underlying age-related osteoporosis; Vit D level 30.7; cont supplementation PT/OT; possible placement short-term for rehab Goals of care conversation; counseling: Lengthy conversation held with pt , Deep, son and daughter Dolly, at bedside in ED Discussed pt diagnosis with hip fracture and underlying cognition. Pt is able to do most of her ADL's independently; however, appears she requires redirection and guidenance throughout the day. They have been 69 years and it is apparent he cares for her deeply. We talked about SNF vs Acute rehab and challenges with pain/retaining PT recommendations, etc. Discussed code status; for now remain full code, per . There can be rediscussion, but apparent bigger conversations regarding goals have not taken place. For now, goal is PT/OT for SNF ([facility] possible preference of family; open) to see how things go over a short term SNF approach. If overarching decline, or intractable pain, discussed what hospice options look like as well Will place formal palliative medicine consult for Sunday; will continue to discuss over the if necessary. Elderly patients with hip fractures tend to have poor outcomes primarily due to to the high risk of immobility related complications, persistent pain and inability to usually regain free fraction function. Some poor outcomes could be included in entirely rapid deconditioning, development of pressure ulcer, pneumonia, VTE, UTI all of which are usually exacerbated by prolonged immobility. Abnormal UA; poss UTI Pt w/o urinary sx; however pt's daughter states she's prev been asymptomatic w/ UTIs before Will cover empirically w/ IV Rocephin for now --> follow urine cx (pending) HTN Continue BB w/ hold parameters CAD H/o NSTEMI H/o ischemic cardiomyopathy F/w [facility] cards H/O of bare-metal LAD stent placement in 2000 NSTEMI 2020 s/p cath with culprit vessel small AV groove portion of the left circumflex with subtotal occlusion [not amenable to stenting] preserved LV systolic function and resting RWMA including apical/septal/apical anterior inferior hypokinesis EKG unchanged from prior Continue ASA, metoprolol, statin Chronic lymphedema Hold HCTZ for now GERD takes pantoprazole;continue Pulmonary nodules Appear unchanged from prior imaging F/U as outpatient Indeterminate thyroid nodule noted on CTAP--> will need outpt thyroid US >> PCP can arrange Disposition: DVT Prophylaxis: SCDs/TEDs; ASA PCP: Gee Gamez, DO Likely could benefit from SNF placement for short term rehab I spent a total of 56 minutes coordinating, documenting, and providing care for this patient excluding time spent in the performance of separately billed services or time spent by another provider/QHP. This included personally reviewing all current laboratories and imaging studies, medical reconciliation, outpatient chart review and discussion with specialists. Admission and Anticipated Discharge Date Admission Date: March 06, 2025 Supervising Physician Co-Signing Physician Notes Attending addendum: The patient was seen and examined in emergency room in presence of the family members She complains of pain in the ass but denies any other significant symptoms Remains pleasantly confused On examination Lying in bed without any acute distress Remains hemodynamically stable Examination of the extremities did not show any acute abnormalities except changes due to osteoarthritis and she could move the legs though generally weak Pain in the pelvis noted with movements of the extremities Her admission labs, medications and imaging studies reviewed Status post mechanical fall with pelvic rim fractures and the management would be conservative as per Ortho History of dementia now with acute confusion secondary to medications/infection/pain Will decrease the use of narcotic pain medications Antibiotics for possible UTI Agree with assessment and plan as outlined above by FRED Mcmillan and take the full responsibility of care in the hospital Dr Sandra Busch Subjective Pt seen while still in the ED. She was laying in her hospital bed in no apparent distress. Pt is pleasantly confused and able to tell me what happened at home prior to her fall. Pt c/o pain in her hip, denies chest pain, SOB. Unreliable for most interaction due to underlying cognition. Lengthy conversation held with pt , son and daughter at bedside. See A/P for further details. Review of Systems Review of Systems: Unobtainable due to cognitive status Physical Exam Physical Exam: Neuro: AAOx2, PERRLA, no aphagia, memory changes, CNII-XII grossly intact. frail stature. HEENT: head normocephalic, moist mucus membranes CV: S1/S2, (-) M/G/R, (-) edema, cap refill < 3 seconds Resp: Lungs CTA in all jacobs. On RA GI: Abdomen S/NT/ND, Ax4 bowel sounds, (-) CVA tenderness Musculoskeletal: follows commands; squeezes hands and wiggles toes on command Skin: (-) rashes , (-) erythema. Psych: pleasantly confused mood Results & Data Results & Data Vital Signs (Past 12 Hours) Vital Signs Temp Pulse Pulse Resp BP Pulse Ox Pulse Ox 03/07/25 07:00 85 14 128/72 94 03/07/25 06:53 83 03/07/25 06:00 78 16 122/67 93 03/07/25 05:25 80 17 146/72 H 96 03/07/25 05:00 36.8 C 81 16 154/67 H 95 03/07/25 03:31 75 16 124/65 99 03/07/25 02:00 78 18 137/65 99 03/07/25 01:00 85 18 128/84 95 03/07/25 00:00 86 20 131/65 94 03/06/25 23:59 112 H 03/06/25 23:11 84 03/06/25 23:00 86 19 122/62 96 03/06/25 21:09 84 20 120/69 94 03/06/25 20:57 85 20 137/57 L 95 03/06/25 20:56 95 O2 Del Method O2 Del Method 03/07/25 07:00 Room Air 03/07/25 06:53 03/07/25 06:00 Room Air 03/07/25 05:25 Room Air 03/07/25 05:00 Room Air 03/07/25 03:31 Room Air 03/07/25 02:00 Room Air 03/07/25 01:00 Room Air 03/07/25 00:00 Room Air 03/06/25 23:59 03/06/25 23:11 03/06/25 23:00 Room Air 03/06/25 21:09 Room Air 03/06/25 20:57 Room Air 03/06/25 20:56 Room Air Laboratory Results Short CBC 03/06/25 03/07/25 Range/Units 15:57 04:26 WBC 10.55 7.64 (4.8-10.8) K/ul Hgb 13.1 11.6 L (12.0-16.0) g/dl Hct 39.1 35.2 L (37.0-47.0) % Plt Count 238 184 (130-400) K/uL BMP 03/06/25 03/07/25 15:57 04:26 Sodium 141 142 Potassium 4.4 3.6 Chloride 105 107 Carbon Dioxide 32 27 BUN 17 15 Creatinine 0.58 L 0.46 L Glucose 95 124 H Calcium 9.3 8.5 L Liver Function 03/06/25 03/07/25 Range/Units 15:57 04:26 Total Bilirubin 0.6 0.8 (0.2-1.0) mg/dl AST 27 38 (13-39) U/L ALT 18 23 (7-52) U/L Alkaline Phosphatase 70 61 (34-104) U/L Albumin 4.0 3.5 (3.4-5.0) gm/dl Urine 03/06/25 Range/Units 16:40 Urine Color Yellow Urine Appearance Clear (Clear) Urine pH 5.5 (4.5-7.5) Ur Specific [place] 1.022 (1.000-1.030) Urine Protein Negative (Negative) Urine Glucose (UA) Negative (Negative) (2) Pubic bone fracture Encounter type: initial encounter Fracture type: closed Laterality: left Sublocation of pubis: unspecified portion of pubis Qualified Code(s): S32.502A - Unspecified fracture of left pubis, initial encounter for closed fracture (3) Inferior pubic ramus fracture Encounter type: initial encounter Fracture type: closed Laterality: left Qualified Code(s): S32.592A - Other specified fracture of left pubis, initial encounter for closed fracture
--- NOTE | 2025-03-07 09:47 | Orthopedic Consultation ---
Date of Consultation March 07, 2025 Assessment & Plan (1) Inferior pubic ramus fracture: Patient can be weightbearing as tolerated with walker and maximum assistance Pain control with p.o. or IV pain medication Patient with easy wrap DVT prophylaxis with her normal daily aspirin PT/OT Continue care per Hospitalist service. Patient will need a 3 to 4-week follow-up at [facility] orthopedics, with x- rays. Please recall if any other Ortho issues. Supervising Physician Co-Signing Physician Notes I, Dr. Friedman, saw and examined the patient with my PA. I discussed the management with my PA. I reviewed my PAs note and agree with the documented findings and attest to completing the substantive portion of medical decision making and plan of care I developed. History of Present Illness Reason for Consultation: Left superior and inferior pubic rami fractures Requesting Physician: Bob Friedman MD Attending Physician: Morgan Busch MD History of Present Illness This 89 yo F is seen in consultation for Left hip pain due to superior and inferior pubic rami fractures. Patient apparently sustained an unwitnessed fall earlier today. Her attempted to get her up off the floor but was unable due to her pain. He did call 911 and the patient was brought in by EMS. EMS does report that the patient had complained of neck pain as well as left hip pain. The patient is confused but pleasant. This is her normal baseline. She denies chest pain, sob, breathing difficulties, headache, fevers/chills, or numbness or tingling in her extremities. Allergies Allergy/AdvReac Type Severity Reaction Status Date / Time amoxicillin Allergy Intermediate RASH Verified 03/06/25 17:23 losartan Allergy Intermediate RASH/SWELLING Verified 03/06/25 17:23 OF LEGS Penicillins Allergy Intermediate RASH Verified 03/06/25 17:23 adhesive Allergy Mild TAPES-REDDENED Verified 03/06/25 17:23 RASH latex Allergy Mild RED HANDS Verified 03/06/25 17:23 WITH GLOVES Qavlxeb-GAA-IqU Reductase Allergy Unknown Unknown Verified 03/06/25 17:23 Inhibitor [Rzdkcke-Iby-Dkj Reductase Inhibitor] ciprofloxacin AdvReac Severe "sick" Verified 03/06/25 17:23 morphine AdvReac Severe Vomiting Verified 03/06/25 17:23 THAD Inhibitors AdvReac Intermediate Cough Verified 03/06/25 17:23 fentanyl AdvReac Intermediate FAINTED Verified 03/06/25 17:23 Home Medications Medication Instructions Recorded Confirmed Type multivitamin 1 tab PO DAILY 12/23/19 03/06/25 History omega 5-cpt-ykf-fish oil 1,000 mg 1 cap PO QPM 12/23/19 03/06/25 History (120 mg-180 mg) capsule (Fish Oil) aspirin 81 mg tablet,delayed 81 mg PO DAILY 01/08/23 03/06/25 History release oxycodone 5 mg tablet 5 mg PO Q12H PRN Severe Pain 01/08/23 03/06/25 History (Scale Score 7-10) metoprolol tartrate 25 mg tablet 12.5 mg PO BID 01/17/24 03/06/25 History Beet Root 1 dose PO DAILY 03/06/25 03/06/25 History acetaminophen 500 mg tablet 500 mg PO Q6H PRN PAIN/FEVER 03/06/25 03/06/25 History (Tylenol Extra Strength) bisacodyl 5 mg tablet 5 mg PO DAILY PRN Constipation 03/06/25 03/06/25 History cholecalciferol (vitamin D3) 25 25 mcg PO DAILY 03/06/25 03/06/25 History mcg (1,000 unit) capsule (Vitamin D3) coQ10 (ubiquinol) 200 mg capsule 200 mg PO QPM 03/06/25 03/06/25 History coffee extract 100 mg-phosphatidyl 1 cap PO QPM 03/06/25 03/06/25 History serine 100 mg capsule (Neuriva Original) cyanocobalamin (vitamin B-12) 500 500 mcg PO Q OTHER DAY 03/06/25 03/06/25 History mcg tablet (Vitamin B-12) fluticasone propionate 50 2 spray intranasal DAILY PRN Nasal 03/06/25 03/06/25 History mcg/actuation nasal Congestion spray,suspension food supplemt, lactose-reduced 1 ea PO DIRECTED 03/06/25 03/06/25 History (Ensure High Protein oral liquid) hydrochlorothiazide 12.5 mg capsule 12.5 mg PO .2-3XWK 03/06/25 03/06/25 History nitroglycerin 0.4 mg sublingual 0.4 mg sublingual DIRECTED PRN 03/06/25 03/06/25 History tablet (Nitrostat) Chest Pain ondansetron 4 mg disintegrating 4 mg translingual Q8H PRN 03/06/25 03/06/25 History tablet NAUSEA/VOMITING pantoprazole 40 mg tablet,delayed 40 mg PO DAILYBB 03/06/25 03/06/25 History release pravastatin 40 mg tablet 40 mg PO QPM 03/06/25 03/06/25 History pyridoxine (vitamin B6) 50 mg 50 mg PO DAILY 03/06/25 03/06/25 History tablet (Vitamin B-6) simethicone 80 mg chewable tablet 80 mg PO Q6H PRN GAS DISCOMFORT 03/06/25 03/06/25 History sodium chloride 0.65 % nasal spray 1 spray intranasal DAILY PRN 03/06/25 03/06/25 History aerosol (Saline Nasal) Congestion Patient History Surgical History History of shoulder surgery History of cataract extraction History of inguinal hernia repair, bilateral History of ankle joint replacement Left History of bilateral total hip arthroplasty History of hysterectomy History of colonoscopy with polypectomy History of carpal tunnel surgery of right wrist History of placement of stent in LAD coronary artery Chronic CAD with s/p PCI stent to mid LAD with bare metal stent May 2001. 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 Family History Mother , at 89 Asthma Father , 100 Prostate cancer Social History Smoking Status: Never smoker Hx Alcohol Use: Yes Alcohol type: beer Hx Substance Use: No Preferred Language: Tanzanian Communication Ability: Effective Potato Picker Required: No Beliefs That Will Affect Care: Mu-Ism marital status: Current Living Situation: Spouse current occupational status: retired Other Information That Helps Us Care for You: No other: Ambulates with a cane Feels Safe at Home: Yes Safety Concerns: Feels Safe At This Time Assistive Devices: Glasses and Walker Review of Systems Review of Systems: Other (Difficult to obtain due to dementia) Physical Exam Physical Exam: Bilateral lower extremities: Patient tolerates logroll testing of both lower extremities. She is able to actively dorsi and plantarflex both feet. She is able to move her digits and detect light sensation to touch. Peripheral pulses are 2+. Patient did experience tenderness to palpation in the left groin area and over the pelvis/ left of the symphysis pubis. There is no edema, erythema or ecchymosis. Patient experienced referred pain with left knee flexion. No pain with gentle ROM of the hips. Otherwise she is neurovascularly intact. Results & Data Vital Signs (Past 12 Hours) Vital Signs Temp Pulse Pulse Resp BP Pulse Ox O2 Del Method 03/07/25 07:00 85 14 128/72 94 Room Air 03/07/25 06:53 83 03/07/25 06:00 78 16 122/67 93 Room Air 03/07/25 05:25 80 17 146/72 H 96 Room Air 03/07/25 05:00 36.8 C 81 16 154/67 H 95 Room Air 03/07/25 03:31 75 16 124/65 99 Room Air 03/07/25 02:00 78 18 137/65 99 Room Air 03/07/25 01:00 85 18 128/84 95 Room Air 03/07/25 00:00 86 20 131/65 94 Room Air 03/06/25 23:59 112 H 03/06/25 23:11 84 03/06/25 23:00 86 19 122/62 96 Room Air Diagnostic Findings Laboratory Results WBC 7.64 K/ul (4.8-10.8) 03/07/25 04:26 RBC 3.63 M/uL (4.20-5.40) L 03/07/25 04:26 Hgb 11.6 g/dl (12.0-16.0) L 03/07/25 04:26 POC Hgb 13.6 g/dl (12.0-16.0) 03/06/25 16:11 Hct 35.2 % (37.0-47.0) L 03/07/25 04:26 POC Hct 40 % (37-47) 03/06/25 16:11 MCV 97.0 fL (80.0-100.0) 03/07/25 04:26 MCH 32.0 pg (25.0-34.0) 03/07/25 04:26 MCHC 33.0 g/dL (32.0-36.0) 03/07/25 04:26 RDW Std Deviation 49.5 fL (36.4-46.3) H 03/07/25 04:26 RDW Coeff of Damon 13.9 % (11.5-14.5) 03/07/25 04:26 Plt Count 184 K/uL (130-400) 03/07/25 04:26 MPV 8.5 fL (9.4-12.4) L 03/07/25 04:26 Immature Gran % (Auto) 0.3 % 03/07/25 04:26 Neut % (Auto) 73.2 % 03/07/25 04:26 Lymph % (Auto) 15.1 % 03/07/25 04:26 [place] % (Auto) 9.8 % 03/07/25 04:26 Eos % (Auto) 1.3 % 03/07/25 04:26 Baso % (Auto) 0.3 % 03/07/25 04:26 Neut # (Auto) 5.60 K/uL (1.40-6.50) 03/07/25 04:26 Lymph # (Auto) 1.15 K/uL (1.20-3.40) L 03/07/25 04:26 [place] # (Auto) 0.75 K/uL (0.11-0.59) H 03/07/25 04:26 Eos # (Auto) 0.10 K/uL (0.00-0.50) 03/07/25 04:26 Baso # (Auto) 0.02 K/uL (0.00-0.20) 03/07/25 04:26 Immature Gran # (Auto) 0.02 K/uL (0.01-0.20) 03/07/25 04:26 PT 10.9 Seconds (9.0-12.0) 03/06/25 15:57 INR 1.0 (0.9-1.1) 03/06/25 15:57 APTT 26 Seconds (21-31) 03/06/25 15:57 PTT Ratio 1.0 03/06/25 15:57 POC Sodium 141 mmol/L (135-144) 03/06/25 16:11 Sodium 142 mmol/L (136-145) 03/07/25 04:26 POC Potassium 4.3 mmol/L (3.3-5.0) 03/06/25 16:11 Potassium 3.6 mmol/L (3.5-5.1) 03/07/25 04:26 POC Chloride 103 mmol/L (101-112) 03/06/25 16:11 Chloride 107 mmol/L (98-107) 03/07/25 04:26 Carbon Dioxide 27 mmol/L (21-32) 03/07/25 04:26 POC Total CO2 27 mmol/L (24-31) 03/06/25 16:11 Anion Gap 8 (3-11) 03/07/25 04:26 POC Anion Gap 16.0 mmol/L (16-25) 03/06/25 16:11 POC BUN 17 mg/dl (7-18) 03/06/25 16:11 BUN 15 mg/dl (6-23) 03/07/25 04:26 Creatinine 0.46 mg/dl (0.6-1.2) L 03/07/25 04:26 POC Creatinine 0.7 mg/dl (0.6-1.3) 03/06/25 16:11 Est Cr Clr Drug Dosing 69.9 ml/min 03/07/25 04:26 eGFR 91.99 03/07/25 04:26 BUN/Creatinine Ratio 32.6 (10-20) H 03/07/25 04:26 Glucose 124 mg/dl (70-99(Fasting)) H 03/07/25 04:26 POC Glucose (other) 97 mg/dl (70-99) 03/06/25 16:11 Calcium 8.5 mg/dl (8.6-10.3) L 03/07/25 04:26 POC Ioniz Calcium [place] 1.24 mmol/l (1.12-1.32) 03/06/25 16:11 Phosphorus 4.6 mg/dl (2.5-4.9) 03/07/25 04:26 Magnesium 1.8 mg/dl (1.7-2.4) 03/07/25 04:26 Total Bilirubin 0.8 mg/dl (0.2-1.0) 03/07/25 04:26 AST 38 U/L (13-39) 03/07/25 04:26 ALT 23 U/L (7-52) 03/07/25 04:26 Alkaline Phosphatase 61 U/L (34-104) 03/07/25 04:26 Total Protein 6.1 gm/dl (6.0-8.3) 03/07/25 04:26 Albumin 3.5 gm/dl (3.4-5.0) 03/07/25 04:26 Globulin 2.6 gm/dl (2.5-4.0) 03/07/25 04:26 Albumin/Globulin Ratio 1.3 (0.9-2) 03/07/25 04:26 Lipase 11 U/L (11-82) 03/06/25 15:57 25-OH Vitamin D Total 30.7 ng/ml (30-100) 03/07/25 04:26 TSH 2.211 uIu/ml (0.300-4.500) 03/07/25 04:26 Urine Color Yellow 03/06/25 16:40 Urine Appearance Clear (Clear) 03/06/25 16:40 Urine pH 5.5 (4.5-7.5) 03/06/25 16:40 Ur Specific [place] 1.022 (1.000-1.030) 03/06/25 16:40 Urine Protein Negative (Negative) 03/06/25 16:40 Urine Glucose (UA) Negative (Negative) 03/06/25 16:40 Urine Ketones Trace (Negative) H 03/06/25 16:40 Urine Blood Negative (Negative) 03/06/25 16:40 Urine Nitrite Positive (Negative) A 03/06/25 16:40 Urine Bilirubin Negative (Negative) 03/06/25 16:40 Urine Urobilinogen Negative (Negative) 03/06/25 16:40 Ur Leukocyte Esterase Trace (Negative) H 03/06/25 16:40 Urine WBC (Auto) 0-5 /hpf (0-5) 03/06/25 16:40 Urine RBC (Auto) 0-2 /hpf (0-2) 03/06/25 16:40 U Hyaline Cast (Auto) 0-2 /lpf (0-2) 03/06/25 16:40 U Epithel Cells (Auto) 3-5 /hpf (0-2) H 03/06/25 16:40 Urine Bacteria (Auto) 4+ (None Seen) H 03/06/25 16:40 Urine Comment 03/06/25 16:40 Impressions Chest X-Ray 03/06/25 15:53 EXAM: Portable AP chest radiograph TECHNIQUE: AP portable radiograph of the chest was obtained. INDICATION: Shortness of breath Comparison: Chest radiograph January 08, 2023 FINDINGS: LINES and TUBES: CARDIOVASCULAR: Cardiac silhouette is stably and mildly enlarged in size. Atherosclerosis of the thoracic aorta. LUNGS/PLEURA: No focal consolidation identified. Chronic interstitial lung changes. No significant pleural fluid. No discernible pneumothorax. OSSEOUS/OTHER: No displaced acute osseous process identified. Bilateral shoulder reverse arthroplasties. IMPRESSION: No radiographic evidence of acute cardiopulmonary process. Electronically signed by Charly Fischer 03-06-2025 4:39 PM Abdomen/Pelvis CT 03/06/25 15:54 CT ABDOMEN and PELVIS with INTRAVENOUS CONTRAST HISTORY: Abdominal pain TECHNIQUE: CT abdomen and pelvis with contrast. IV CONTRAST: 100 mL of OMNIPAQUE 300 ENTERIC CONTRAST: Not Given COMPARISON: None FINDINGS: LOWER CHEST: Please see separately dictated thoracic CT report LIVER: No focal lesion identified. Hepatic steatosis and hepatomegaly GALLBLADDER/BILIARY: Surgically absent gallbladder. Mild intrahepatic biliary dilation and prominent caliber to the common bile duct may be an expected finding following cholecystectomy and allowing for patient age. SPLEEN: Unremarkable. PANCREAS: Atrophic parenchyma without discrete mass.. ADRENALS: Unremarkable. KIDNEYS: Small cortical cysts. No stones or hydronephrosis identified. PERITONEUM/RETROPERITONEUM. No lymphadenopathy by size criteria. No aortic aneurysm. Extensive atherosclerosis with stenoses of the celiac trunk, SMA, the renal arteries and the [place]. Small presacral fluid that is nonspecific GASTROINTESTINAL: No obstruction. Colonic diverticulosis without evidence of diverticulitis. REPRODUCTIVE: Poorly evaluated due to obscuration by streak artifact. No obvious suspicious pelvic masses identified. BONES: Please refer to separately dictated left hip CT report for additional findings. Multiple chronic appearing mild compression deformities of the lumbar spine. No significant retropulsion is identified IMPRESSION: No evidence of acute visceral trauma to the abdomen or the pelvis. Electronically signed by Charly Fischer 03-06-2025 5:[address] 03/06/25 15:54 CT CERVICAL SPINE WITHOUT CONTRAST: HISTORY: TRAUMA TECHNIQUE: Noncontrast CT examination of the cervical spine is performed. Coronal and sagittal reformats were created. COMPARISON: Cervical spine CT June 06, 2022 FINDINGS: CERVICAL SPINE: There is no significant vertebral body height loss. No acute traumatic fracture identified. There is no significant spondylolisthesis. Multilevel degenerative changes characterized by disc osteophyte complex, bilateral facet and uncovertebral hypertrophy resulting and neural foraminal narrowing at multiple levels, worst at mid to lower spine. Visualized soft tissues of neck are unremarkable. IMPRESSION: No acute traumatic fracture of the cervical spine. Multilevel degenerative changes as above Electronically signed by Charly Fischer 03-06-2025 5:[address] 03/06/25 15:54 Clinical history: Fall Technique: Axial computed tomography images were obtained of the chest after the administration of intravenous contrast Comparison is made to the prior CT dated 12/23/2019 Findings: There is an unchanged 4 mm left lower lobe nodule. There is unchanged linear opacity along the left major fissure. There are unchanged small peripheral nodular opacities in the right upper lobe. There is no definite change in a 3 mm nodular opacity in the right lower lobe. There is no pleural effusion or pneumothorax. There are irregular opacities in the lung apices, likely due to pleural parenchymal scarring. No endobronchial lesion is seen There is no mediastinal, hilar, or axillary adenopathy. The thoracic aorta appears unremarkable with no sign of aneurysm or dissection. There is no pericardial effusion. There is coronary atherosclerosis There is a 1 cm nodule in the left thyroid lobe No fracture is seen. No focal osseous lesion is evident. There are bilateral shoulder arthroplasties Impression: 1. Several unchanged pulmonary nodules, benign given the long-term stability 2. Indeterminate thyroid nodule. A thyroid ultrasound could be obtained for further evaluation 3. Coronary atherosclerosis ACT 112: Positive. There are findings on this exam that require communication between the performing entity and the patient following Patient Test Result Information Act ([place] ACT 112) guidelines. Electronically signed by Cory Alcantar 03-06-2025 5:[address] 03/06/25 15:54 Clinical History: Fall Technique: Axial computed tomography images were obtained of the brain without intravenous contrast. Comparison is made to the prior CT dated 12/24/2019 Findings: There is unchanged cerebral atrophy, within expected limits for the patient's age. Areas of decreased attenuation are seen within the periventricular white matter, likely representing chronic small vessel ischemic disease. There are calcifications along the falx cerebri. There is no definite sign of acute or old infarction. No intracranial hemorrhage is evident. No definite mass lesion is seen on this noncontrast examination. There is no midline shift or other form of herniation. No hydrocephalus is seen. No fracture is identified. The orbits and the visualized paranasal sinuses appear unremarkable. The mastoid air cells appear clear. Impression: 1. Cerebral atrophy and chronic small vessel ischemic disease 2. Otherwise unremarkable noncontrast CT of the brain Electronically signed by Cory Alcantar 03-06-2025 5:[address] 03/06/25 15:57 CT LEFT HIP WITHOUT CONTRAST: HISTORY: Trauma TECHNIQUE: CT of the left hip was obtained without intravenous contrast. Coronal and sagittal reformats were created. COMPARISON: None FINDINGS: There are multifocal acute traumatic fractures involving the left pubic bone resulting in mild impaction. Acute traumatic fracture of the left inferior pubic ramus. Intramuscular hematomas in the abutting adductor muscles Patient is status post left hip arthroplasty with components in anatomic alignment. IMPRESSION: Multifocal acute traumatic fractures of the left pubic bone resulting mild impaction. Acute traumatic fracture of the left inferior pubic ramus. Intact left hip arthroplasty with components in anatomic alignment. Electronically signed by Charly Fischer 03-06-2025 5:38 PM (1) Inferior pubic ramus fracture Encounter type: initial encounter Fracture type: closed Laterality: left Qualified Code(s): S32.592A - Other specified fracture of left pubis, initial encounter for closed fracture
[2025-03-07] MEDS: ACETAMINOPHEN 1,000 MG/100 ML VIAL IV SCH (13:58)
[2025-03-07] MEDS: cefTRIAXone SODIUM 2,000 MG/50 ML BAG IV SCH (20:14)
[2025-03-07] MEDS ORDERED: PHA DELIRIUM CONSULT PRN (23:57)
[2025-03-08 06:32] LABS: Hematocrit (blood only) 36.4 % (37.0-47.0); Hemoglobin 11.6 g/dl (12.0-16.0); Mean Corpuscular Hemoglobin 31.9 pg (25.0-34.0); Mean Corpuscular Volume 100.0 fL (80.0-100.0); Platelet Count 177 K/uL (130-400); RDW Standard Deviation 50.9 fL (36.4-46.3); Red Blood Count 3.64 M/uL (4.20-5.40); White Blood Count 5.96 K/ul (4.8-10.8)
[2025-03-08 07:07] LABS: Anion Gap 7.0 (3-11); Blood Urea Nitrogen 14.0 mg/dl (6-23); Calcium 8.7 mg/dl (8.6-10.3); Carbon Dioxide 30.0 mmol/L (21-32); Chloride 106.0 mmol/L (98-107); Creatinine Clr Calc Pharmacy 60.7 ml/min; Glucose 95.0 mg/dl (70-99(Fasting)); Potassium 3.5 mmol/L (3.5-5.1); Sodium 143.0 mmol/L (136-145)
--- NOTE | 2025-03-08 07:23 | Hospitalist Progress Note ---
Date of Service March 08, 2025 Assessment & Plan (1) Ground-level fall: (2) Pubic bone fracture: (3) Inferior pubic ramus fracture: (4) Abnormal urinalysis: Plan Patient is an 89-year-old female with past medical history significant for HLD, HTN, history of NSTEMI in December 2019 s/p cardiac catheterization with culprit vessel small AV groove portion of the left circumflex with subtotal occlusion [not amenable to stenting], CAD with mild to moderate diffuse coronary atherosclerosis as per cardiac catheterization in December 2019, history of remote LAD stent placement, history of ischemic cardiomyopathy with preserved LV systolic function and resting RWMA including apical/septal/apical anterior inferior hypokinesis, chronic venous insufficiency, chronic lymphedema, Raynaud's disease, vitamin B12 deficiency, generalized osteoarthritis, history of bilateral hip arthroplasties, moderate late onset Alzheimer's dementia, anxiety and other problems listed below who presented to the ED via EMS with complaint of left hip pain after sustaining a ground-level fall and was found to have multifocal acute traumatic fractures of the left pubic bone and an acute traumatic of the left inferior pubic ramus. Additional imaging including CXR, CTAP, cervical spine CT, chest CT and head CT w/o any additional traumatic findings. L pubic bone fxs & L interior pubic ramus fx: s/p unwitnessed GLF L hip CT: multifocal acute traumatic fxs of the left pubic bone resulting in mild impaction, acute traumatic fx of the left inferior pubic ramus Ortho consult; no surgery indicated WBAT with walker + assist; Fall precautions soft easy wrap [facility] f/u 3-4 weeks DC [facility] PRN pain control: Scheduled tylenol x3 days Avoid narcotics given advanced age and underlying cognitive impairment Takes oxy ad a home med; reduce dose to 2.5; increase frequency, goal fo scheduled Tylenol only Likely underlying age-related osteoporosis; Vit D level 30.7; cont supplement PT/OT; need for SNF vs Home with Hospice; family wants to pursue SNF Goals of care conversation; counseling: Lengthy conversation held with pt , Deep, son and daughter Dolly, at bedside in ED Discussed pt diagnosis with hip fracture and underlying cognition. Pt is able to do most of her ADL's independently; however, appears she requires redirection and guidenance throughout the day. They have been 69 years and it is apparent he cares for her deeply. We talked about SNF vs Acute rehab and challenges with pain/retaining PT recommendations, etc. Discussed code status; remain full code, per . Rediscussed needed, but apparent bigger conversations regarding goals have not taken place. For now, goal is PT/OT for SN[facility] possible preference of family; open) to see how things go over a short term SNF approach. If overarching decline, or intractable pain, discussed what hospice options look like as well Will place formal palliative medicine consult for Sunday; will continue to discuss over the weekend if necessary. Elderly patients with hip fractures tend to have poor outcomes primarily due to to the high risk of immobility related complications, persistent pain and inability to usually regain pre function ability. Some poor outcomes could be included in entirely rapid deconditioning, development of pressure ulcer, pneumonia, VTE, UTI all of which are usually exacerbated by prolonged immobility. Urinary tract Infection: Pt w/o urinary sx; however pt's daughter states she's prev been asymptomatic w/ UTIs before Urine Culture returned 03/08 with klebsiella pneumonia; sensitive to Rocephin;continue IV Rocephin through 03/11 Probiotic ordered HTN Continue Metoprolol w/ hold parameters CAD H/o NSTEMI H/o ischemic cardiomyopathy F/w [employer] cards H/O of bare-metal LAD stent placement in 2000 NSTEMI 2020 s/p cath with culprit vessel small AV groove portion of the left circumflex with subtotal occlusion [not amenable to stenting] preserved LV systolic function and resting RWMA including apical/septal/apical anterior inferior hypokinesis EKG unchanged from prior Continue ASA, metoprolol, statin Chronic lymphedema Hold HCTZ for now GERD takes pantoprazole;continue Pulmonary nodules Appear unchanged from prior imaging F/U as outpatient Indeterminate thyroid nodule noted on CTAP--> will need outpt thyroid US >> PCP can arrange Disposition: DVT Prophylaxis: SCDs/TEDs; ASA PCP: Gee Gamez, DO Likely could benefit from SNF placement for short term rehab I spent a total of 58 minutes coordinating, documenting, and providing care for this patient excluding time spent in the performance of separately billed services or time spent by another provider/QHP. This included personally reviewing all current laboratories and imaging studies, medical reconciliation, outpatient chart review and discussion with specialists. Admission and Anticipated Discharge Date Admission Date: March 06, 2025 Supervising Physician Co-Signing Physician Notes Co-Signing Physician Notes Attending addendum: The patient was seen and examined in emergency room in presence of the family members She complains of pain in the ass but denies any other significant symptoms Remains pleasantly confused On examination Lying in bed without any acute distress Remains hemodynamically stable Examination of the extremities did not show any acute abnormalities except changes due to osteoarthritis and she could move the legs though generally weak Pain in the pelvis noted with movements of the extremities Her admission labs, medications and imaging studies reviewed Status post mechanical fall with pelvic rim fractures and the management would be conservative as per Ortho History of dementia now with acute confusion secondary to medications/infection/pain Will decrease the use of narcotic pain medications Antibiotics for possible UTI Agree with assessment and plan as outlined above by FRED Mcmillan and take the full responsibility of care in the hospital Dr Sandra Busch 03/08/2025 Patient was seen and examined in medical telemetry unit in presence of her family member She remains pleasantly confused but denies any acute symptoms except pain in the hip mainly on the left side Denies any other significant symptoms On examination Lying in bed without any distress remains hemodynamically stable System examination was unremarkable All medications and labs reviewed Mechanical fall with pelvic fractures for conservative management Dementia without any acute delirium Reviewed assessment and plan as outlined above agree with Katelyn Genao 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 Pt in no apparent distress. She is awake, alert oriented to self; pleasantly confused. Unreliable for most interaction due to underlying cognition. Received one dose of low dose oxy overnight, along with a dose of Zyprexa; see note below; avoid narcs Lengthy conversation held with pt @ bedside. See A/P for further details. Review of Systems Review of Systems: At least ten systems reviewed and negative, except as noted in the HPI. Physical Exam Physical Exam: Neuro: AAOx2, PERRLA, no aphagia, memory changes, CNII-XII grossly intact. frail stature. HEENT: head normocephalic, moist mucus membranes CV: S1/S2, (-) M/G/R, (-) edema, cap refill < 3 seconds Resp: Lungs CTA in all jacobs. On RA GI: Abdomen S/NT/ND, Ax4 bowel sounds, (-) CVA tenderness Musculoskeletal: follows commands; squeezes hands and wiggles toes on command Skin: (-) rashes , (-) erythema. Psych: pleasantly confused mood Results & Data Results & Data Vital Signs (Past 12 Hours) Vital Signs Temp Pulse Pulse Resp BP Pulse Ox O2 Del Method 03/08/25 07:03 36.8 C 73 101/62 90 Room Air 03/08/25 02:23 36.7 C 79 18 131/70 92 Room Air 03/07/25 22:26 77 03/07/25 22:15 Room Air 03/07/25 22:07 37.7 C H 76 16 113/62 92 Room Air 03/07/25 21:31 83 20 119/62 94 Room Air Laboratory Results Short CBC 03/08/25 Range/Units 06:01 WBC 5.96 (4.8-10.8) K/ul Hgb 11.6 L (12.0-16.0) g/dl Hct 36.4 L (37.0-47.0) % Plt Count 177 (130-400) K/uL BMP 03/08/25 06:01 Sodium 143 Potassium 3.5 Chloride 106 Carbon Dioxide 30 BUN 14 Creatinine 0.52 L Glucose 95 Calcium 8.7 (2) Pubic bone fracture Encounter type: initial encounter Fracture type: closed Laterality: left Sublocation of pubis: unspecified portion of pubis Qualified Code(s): S32.502A - Unspecified fracture of left pubis, initial encounter for closed fracture (3) Inferior pubic ramus fracture Encounter type: initial encounter Fracture type: closed Laterality: left Qualified Code(s): S32.592A - Other specified fracture of left pubis, initial encounter for closed fracture
[2025-03-08] MEDS: ADVANCED PROBIOTIC 625 MG CAPSULE PO SCH (14:16)
--- NOTE | 2025-03-08 15:54 | Electrocardiogram Report ---
Test Reason : Blood Pressure : */* mmHG Vent. Rate : 79 BPM Atrial Rate : 79 BPM P-R Int : 158 ms QRS Dur : 80 ms QT Int : 402 ms P-R-T Axes : 82 -28 64 degrees QTcB Int : 460 ms Normal sinus rhythm Normal ECG When compared with ECG of 17-Jan-2024 14:58, Criteria for Septal infarct are no longer Present Confirmed by Saul Franklin ([id number]) on 03/08/2025 3:53:47 PM Referred By: REFERRED SELF Confirmed By: Saul Franklin
--- NOTE | 2025-03-09 10:48 | Hospitalist Progress Note ---
Date of Service March 09, 2025 Assessment & Plan (1) Inferior pubic ramus fracture: (2) CAD (coronary atherosclerotic disease): (3) Hypertension: (4) Delirium: (5) Dementia: Plan Patient is an 89-year-old female with past medical history significant for HLD, HTN, history of NSTEMI in December 2019 s/p cardiac catheterization with culprit vessel small AV groove portion of the left circumflex with subtotal occlusion [not amenable to stenting], CAD with mild to moderate diffuse coronary atherosclerosis as per cardiac catheterization in December 2019, history of remote LAD stent placement, history of ischemic cardiomyopathy with preserved LV systolic function and resting RWMA including apical/septal/apical anterior inferior hypokinesis, chronic venous insufficiency, chronic lymphedema, Raynaud's disease, vitamin B12 deficiency, generalized osteoarthritis, history of bilateral hip arthroplasties, moderate late onset Alzheimer's dementia, anxiety and other problems listed below who presented to the ED via EMS with complaint of left hip pain after sustaining a ground-level fall and was found to have multifocal acute traumatic fractures of the left pubic bone and an acute traumatic of the left inferior pubic ramus. Additional imaging including CXR, CTAP, cervical spine CT, chest CT and head CT w/o any additional traumatic findings. L pubic bone fxs & L interior pubic ramus fx: S/p unwitnessed ground level fall L hip CT: multifocal acute traumatic fxs of the left pubic bone resulting in mild impaction, acute traumatic fx of the left inferior pubic ramus Ortho consult; no surgery indicated WBAT with walker + assist; Fall precautions Soft easy wrap Schedule Tylenol, reduced oxycodone to 2.5mg as needed for severe breakthrough pain [facility] f/u 3-4 weeks DC [facility] Avoid narcotics given advanced age and underlying cognitive impairment PT/OT; need for SNF vs Home with Hospice; family wants to pursue SNF Goals of care conversation; counseling, per previous provider: Lengthy conversation held with pt , Deep, son and daughter Dolly, at bedside in ED Discussed pt diagnosis with hip fracture and underlying cognition. Pt is able to do most of her ADL's independently; however, appears she requires redirection and guidance throughout the day Discussed SNF vs Acute rehab and challenges with pain/retaining PT recommendations, etc Discussed code status; remain full code, per . Rediscussion needed, but apparent bigger conversations regarding goals have not taken place For now, goal is PT/OT for SNF ([facility] possible preference of family; open) to see how things go over a short term SNF approach. If overarching decline, or intractable pain, discussed what hospice options look like as well Formal palliative care consult - to see today Elderly patients with hip fractures tend to have poor outcomes primarily due to to the high risk of immobility related complications, persistent pain and inability to usually regain pre function ability. Some poor outcomes could be included in entirely rapid deconditioning, development of pressure ulcer, pneumonia, VTE, UTI all of which are usually exacerbated by prolonged immobility. Urinary tract Infection: Pt w/o urinary sx; however pt's daughter states she's prev been asymptomatic w/ UTIs before Urine Culture returned 03/08 with Klebsiella pneumonia; sensitive to Rocephin;continue IV Rocephin through 03/11 Probiotic ordered HTN Continue Metoprolol w/ hold parameters CAD H/o NSTEMI H/o ischemic cardiomyopathy F/w [facility] cards H/O of bare-metal LAD stent placement in 2000 NSTEMI 2019 s/p cath with culprit vessel small AV groove portion of the left circumflex with subtotal occlusion [not amenable to stenting] preserved LV systolic function and resting RWMA including apical/septal/apical anterior inferior hypokinesis EKG unchanged from prior Continue ASA, metoprolol, statin Chronic lymphedema Hold HCTZ for now GERD Takes pantoprazole;continue Pulmonary nodules Appear unchanged from prior imaging F/U as outpatient Indeterminate thyroid nodule noted on CTAP--> will need outpt thyroid US >> PCP can arrange Disposition: DVT Prophylaxis: SCDs/TEDs; ASA PCP: eGe Gamez, DO PT/OT recommending rehab - referrals placed at [facility] and [facility] Patient seen in collaboration with Dr. Busch. Please see addendum. I spent a total of 50 minutes coordinating, documenting, and providing care for this patient excluding time spent in the performance of separately billed services or time spent by another provider/QHP. Admission and Anticipated Discharge Date Admission Date: March 06, 2025 Supervising Physician Co-Signing Physician Notes Co-Signing Physician Notes Attending addendum: The patient was seen and examined in emergency room in presence of the family members She complains of pain in the ass but denies any other significant symptoms Remains pleasantly confused On examination Lying in bed without any acute distress Remains hemodynamically stable Examination of the extremities did not show any acute abnormalities except changes due to osteoarthritis and she could move the legs though generally weak Pain in the pelvis noted with movements of the extremities Her admission labs, medications and imaging studies reviewed Status post mechanical fall with pelvic rim fractures and the management would be conservative as per Ortho History of dementia now with acute confusion secondary to medications/infection/pain Will decrease the use of narcotic pain medications Antibiotics for possible UTI Agree with assessment and plan as outlined above by FRED Mcmillan and take the full responsibility of care in the hospital Dr Sandra Busch 03/08/2025 Patient was seen and examined in medical telemetry unit in presence of her family member She remains pleasantly confused but denies any acute symptoms except pain in the hip mainly on the left side Denies any other significant symptoms On examination Lying in bed without any distress remains hemodynamically stable System examination was unremarkable All medications and labs reviewed Mechanical fall with pelvic fractures for conservative management Dementia without any acute delirium Reviewed assessment and plan as outlined above agree with Katelyn Genao 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 take the full responsibility of care in the hospital Dr Sandra Busch 03/09/2025 The patient was seen and examined in medical telemetry unit She remains stable, pleasantly confused and denies any significant symptoms at rest Awaiting PT evaluation and placement On examination Lying in bed without any acute distress Hemodynamically stable with unremarkable examination except pain in the pelvis with movement of the lower extremities Her labs and imaging studies and medications reviewed Mechanical fall with pelvic ring fractures awaiting placement Agree with assessment and plan as outlined above by Freya Simental PA-C and take the full responsibility of care in the hospital Dr Sandra Busch Subjective Pt lying in her hospital bed this AM; sitter at bedside Pleasant, cooperative, does not appear to be in any distress Unreliable for most interaction due to underlying cognition L pelvis pain with movement. Little breakfast consumed today, per aide Review of Systems Review of Systems: Unobtainable due to cognitive status Physical Exam Physical Exam: Gen: WD/WN, NAD, A&Ox1, pleasantly confused, cooperative HEENT: Normocephalic, atraumatic, mucous membranes moist Lung: Clear to Auscultation bilaterally Heart: Regular rate, regular rhythm Abdomen: Soft, NT, ND +BS x 4 Extremities: L pelvis/hip TTP, no edema Skin: Warm, no rash Results & Data Results & Data Vital Signs (Past 12 Hours) Vital Signs Temp Pulse Pulse Resp BP Pulse Ox O2 Del Method 03/09/25 08:00 83 03/09/25 07:05 36.3 C L 81 23 137/80 95 Room Air 03/08/25 23:07 36.7 C 81 14 145/68 H 94 Room Air (1) Inferior pubic ramus fracture Encounter type: initial encounter Fracture type: closed Laterality: left Qualified Code(s): S32.592A - Other specified fracture of left pubis, initial encounter for closed fracture
--- NOTE | 2025-03-09 12:29 | Palliative Care Consultation ---
Date of Consultation March 09, 2025 Assessment & Plan (1) Palliative care by specialist: Met with pt at bedside, no visitors present. Pt pleasantly communicative and confused. Per B[facility]N, pt's spouse had been visiting with pt early this morning and has an appointment with his MD today. Attempt made to contact spouse by phone unsuccessful, general VM left. (2) Encounter for assessment of healthcare decision-making capacity: Patient exhibits current lack of decisional capacity based on the inability to convey understanding of personal PMHx, current medical condition, treatment options nor the risks / benefits/ potential outcomes of accepting/declining those options, and inability to make decisions based on such knowledge. Hospital does not have written documentation of patient wishes concerning her chosen proxy for medical decisions. Per [place] [id number], in absence of written documentation of patient wishes, pt's proxy for medical decisions would be her spouse Deep Anthony. Pt does require a proxy for medical decisions. (3) Counseling regarding goals of care: ACP discussion/meeting with pt's spouse will be necessary for determining the appropriate course of treatment. Plan Palliative Care will continue to try to contact pt's spouse for GOC discussion. History of Present Illness Reason for Consultation: goals of care Requesting Physician: Morgan Busch MD Attending Physician: Morgan Busch MD History of Present Illness Mrs. Anthony is 89-year-old female with past medical history significant for HLD, HTN, history of NSTEMI in December 2019 s/p cardiac catheterization with culprit vessel small AV groove portion of the left circumflex with subtotal occlusion [not amenable to stenting], CAD with mild to moderate diffuse coronary atherosclerosis as per cardiac catheterization in December 2019, history of remote LAD stent placement, chronic venous insufficiency, Raynaud's disease, vitamin B12 deficiency, generalized osteoarthritis, moderate late onset Alzheimer's dementia, anxiety and other problems listed below who presented to the ED via EMS with complaint of left hip pain after sustaining a ground-level fall at home while ambulating in the kitchen. Currently lives at home with her . No reported LOC or head strike. No blood thinner use. Patient's was home to call EMS as patient was unable to get up off the floor due to significant left hip pain. Patient had been complaining of a mild headache on arrival which improved with IV Tylenol. Allergies Allergy/AdvReac Type Severity Reaction Status Date / Time amoxicillin Allergy Intermediate RASH Verified 03/06/25 17:23 losartan Allergy Intermediate RASH/SWELLING Verified 03/06/25 17:23 OF LEGS Penicillins Allergy Intermediate RASH Verified 03/06/25 17:23 adhesive Allergy Mild TAPES-REDDENED Verified 03/06/25 17:23 RASH latex Allergy Mild RED HANDS Verified 03/06/25 17:23 WITH GLOVES Tvislar-BHY-XjY Reductase Allergy Unknown Unknown Verified 03/06/25 17:23 Inhibitor [Cztbhcf-Tyw-Jcd Reductase Inhibitor] ciprofloxacin AdvReac Severe "sick" Verified 03/06/25 17:23 morphine AdvReac Severe Vomiting Verified 03/06/25 17:23 THAD Inhibitors AdvReac Intermediate Cough Verified 03/06/25 17:23 fentanyl AdvReac Intermediate FAINTED Verified 03/06/25 17:23 Home Medications Medication Instructions Recorded Confirmed Type multivitamin 1 tab PO DAILY 12/23/19 03/06/25 History omega 9-pxf-asc-fish oil 1,000 mg 1 cap PO QPM 12/23/19 03/06/25 History (120 mg-180 mg) capsule (Fish Oil) aspirin 81 mg tablet,delayed 81 mg PO DAILY 01/08/23 03/06/25 History release oxycodone 5 mg tablet 5 mg PO Q12H PRN Severe Pain 01/08/23 03/06/25 History (Scale Score 7-10) metoprolol tartrate 25 mg tablet 12.5 mg PO BID 01/17/24 03/06/25 History Beet Root 1 dose PO DAILY 03/06/25 03/06/25 History acetaminophen 500 mg tablet 500 mg PO Q6H PRN PAIN/FEVER 03/06/25 03/06/25 History (Tylenol Extra Strength) bisacodyl 5 mg tablet 5 mg PO DAILY PRN Constipation 03/06/25 03/06/25 History cholecalciferol (vitamin D3) 25 25 mcg PO DAILY 03/06/25 03/06/25 History mcg (1,000 unit) capsule (Vitamin D3) coQ10 (ubiquinol) 200 mg capsule 200 mg PO QPM 03/06/25 03/06/25 History coffee extract 100 mg-phosphatidyl 1 cap PO QPM 03/06/25 03/06/25 History serine 100 mg capsule (Neuriva Original) cyanocobalamin (vitamin B-12) 500 500 mcg PO Q OTHER DAY 03/06/25 03/06/25 History mcg tablet (Vitamin B-12) fluticasone propionate 50 2 spray intranasal DAILY PRN Nasal 03/06/25 03/06/25 History mcg/actuation nasal Congestion spray,suspension food supplemt, lactose-reduced 1 ea PO DIRECTED 03/06/25 03/06/25 History (Ensure High Protein oral liquid) hydrochlorothiazide 12.5 mg capsule 12.5 mg PO .2-3XWK 03/06/25 03/06/25 History nitroglycerin 0.4 mg sublingual 0.4 mg sublingual DIRECTED PRN 03/06/25 03/06/25 History tablet (Nitrostat) Chest Pain ondansetron 4 mg disintegrating 4 mg translingual Q8H PRN 03/06/25 03/06/25 History tablet NAUSEA/VOMITING pantoprazole 40 mg tablet,delayed 40 mg PO DAILYBB 03/06/25 03/06/25 History release pravastatin 40 mg tablet 40 mg PO QPM 03/06/25 03/06/25 History pyridoxine (vitamin B6) 50 mg 50 mg PO DAILY 03/06/25 03/06/25 History tablet (Vitamin B-6) simethicone 80 mg chewable tablet 80 mg PO Q6H PRN GAS DISCOMFORT 03/06/25 03/06/25 History sodium chloride 0.65 % nasal spray 1 spray intranasal DAILY PRN 03/06/25 03/06/25 History aerosol (Saline Nasal) Congestion Patient History Surgical History History of shoulder surgery History of cataract extraction History of inguinal hernia repair, bilateral History of ankle joint replacement Left History of bilateral total hip arthroplasty History of hysterectomy History of colonoscopy with polypectomy History of carpal tunnel surgery of right wrist History of placement of stent in LAD coronary artery Chronic CAD with s/p PCI stent to mid LAD with bare metal stent May 2001. 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 Required: No Beliefs That Will Affect Care: Congregation marital status: Current Living Situation: Spouse current occupational status: retired Other Information That Helps Us Care for You: No other: Ambulates with a cane Feels Safe at Home: Yes Safety Concerns: Feels Safe At This Time Assistive Devices: Glasses and Walker Review of Systems Review of Systems: Unobtainable due to cognitive status Physical Exam Constitutional: well developed, + thin, cooperative and comfortable pleasantly confused Eyes: PERRL, conjunctivae normal, anicteric sclerae ENMT: external ear and nose normal, oropharynx normal Neck: trachea midline, no thyromegaly Cardiovascular: RRR, no murmur, no edema Gastrointestinal (Abdomen): normal bowel sounds, soft, nontender, no hepatosplenomegaly Skin: no rashes, warm and dry + turgor decreased and + pallor Neurologic: PERRL, EOMI, accommodation nl, no face palsy, no dysarthria Psychiatric: Orientation: alert, oriented to person and cooperative Results & Data Vital Signs (Past 12 Hours) Vital Signs Temp Pulse Pulse Resp BP Pulse Ox O2 Del Method 03/09/25 11:12 36.4 C L 84 24 146/76 H 94 Room Air 03/09/25 08:00 83 03/09/25 07:05 36.3 C L 81 23 137/80 95 Room Air Diagnostic Findings Chest X-Ray 03/06/25 15:53 EXAM: Portable AP chest radiograph TECHNIQUE: AP portable radiograph of the chest was obtained. INDICATION: Shortness of breath Comparison: Chest radiograph January 08, 2023 FINDINGS: LINES and TUBES: CARDIOVASCULAR: Cardiac silhouette is stably and mildly enlarged in size. Atherosclerosis of the thoracic aorta. LUNGS/PLEURA: No focal consolidation identified. Chronic interstitial lung changes. No significant pleural fluid. No discernible pneumothorax. OSSEOUS/OTHER: No displaced acute osseous process identified. Bilateral shoulder reverse arthroplasties. IMPRESSION: No radiographic evidence of acute cardiopulmonary process. Electronically signed by Charly Fischer 03-06-2025 4:39 PM Abdomen/Pelvis CT 03/06/25 15:54 CT ABDOMEN and PELVIS with INTRAVENOUS CONTRAST HISTORY: Abdominal pain TECHNIQUE: CT abdomen and pelvis with contrast. IV CONTRAST: 100 mL of OMNIPAQUE 300 ENTERIC CONTRAST: Not Given COMPARISON: None FINDINGS: LOWER CHEST: Please see separately dictated thoracic CT report LIVER: No focal lesion identified. Hepatic steatosis and hepatomegaly GALLBLADDER/BILIARY: Surgically absent gallbladder. Mild intrahepatic biliary dilation and prominent caliber to the common bile duct may be an expected finding following cholecystectomy and allowing for patient age. SPLEEN: Unremarkable. PANCREAS: Atrophic parenchyma without discrete mass.. ADRENALS: Unremarkable. KIDNEYS: Small cortical cysts. No stones or hydronephrosis identified. PERITONEUM/RETROPERITONEUM. No lymphadenopathy by size criteria. No aortic aneurysm. Extensive atherosclerosis with stenoses of the celiac trunk, SMA, the renal arteries and the [place]. Small presacral fluid that is nonspecific GASTROINTESTINAL: No obstruction. Colonic diverticulosis without evidence of diverticulitis. REPRODUCTIVE: Poorly evaluated due to obscuration by streak artifact. No obvious suspicious pelvic masses identified. BONES: Please refer to separately dictated left hip CT report for additional findings. Multiple chronic appearing mild compression deformities of the lumbar spine. No significant retropulsion is identified IMPRESSION: No evidence of acute visceral trauma to the abdomen or the pelvis. Electronically signed by Charly Fischer 03-06-2025 5:[address] 03/06/25 15:54 CT CERVICAL SPINE WITHOUT CONTRAST: HISTORY: TRAUMA TECHNIQUE: Noncontrast CT examination of the cervical spine is performed. Coronal and sagittal reformats were created. COMPARISON: Cervical spine CT June 06, 2022 FINDINGS: CERVICAL SPINE: There is no significant vertebral body height loss. No acute traumatic fracture identified. There is no significant spondylolisthesis. Multilevel degenerative changes characterized by disc osteophyte complex, bilateral facet and uncovertebral hypertrophy resulting and neural foraminal narrowing at multiple levels, worst at mid to lower spine. Visualized soft tissues of neck are unremarkable. IMPRESSION: No acute traumatic fracture of the cervical spine. Multilevel degenerative changes as above Electronically signed by Charly Fischer 03-06-2025 5:[address] 03/06/25 15:54 Clinical history: Fall Technique: Axial computed tomography images were obtained of the chest after the administration of intravenous contrast Comparison is made to the prior CT dated 12/23/2019 Findings: There is an unchanged 4 mm left lower lobe nodule. There is unchanged linear opacity along the left major fissure. There are unchanged small peripheral nodular opacities in the right upper lobe. There is no definite change in a 3 mm nodular opacity in the right lower lobe. There is no pleural effusion or pneumothorax. There are irregular opacities in the lung apices, likely due to pleural parenchymal scarring. No endobronchial lesion is seen There is no mediastinal, hilar, or axillary adenopathy. The thoracic aorta appears unremarkable with no sign of aneurysm or dissection. There is no pericardial effusion. There is coronary atherosclerosis There is a 1 cm nodule in the left thyroid lobe No fracture is seen. No focal osseous lesion is evident. There are bilateral shoulder arthroplasties Impression: 1. Several unchanged pulmonary nodules, benign given the long-term stability 2. Indeterminate thyroid nodule. A thyroid ultrasound could be obtained for further evaluation 3. Coronary atherosclerosis ACT 112: Positive. There are findings on this exam that require communication between the performing entity and the patient following Patient Test Result Information Act ([place] ACT 112) guidelines. Electronically signed by Cory Alcantar 03-06-2025 5:[address] 03/06/25 15:54 Clinical History: Fall Technique: Axial computed tomography images were obtained of the brain without intravenous contrast. Comparison is made to the prior CT dated 12/24/2019 Findings: There is unchanged cerebral atrophy, within expected limits for the patient's age. Areas of decreased attenuation are seen within the periventricular white matter, likely representing chronic small vessel ischemic disease. There are calcifications along the falx cerebri. There is no definite sign of acute or old infarction. No intracranial hemorrhage is evident. No definite mass lesion is seen on this noncontrast examination. There is no midline shift or other form of herniation. No hydrocephalus is seen. No fracture is identified. The orbits and the visualized paranasal sinuses appear unremarkable. The mastoid air cells appear clear. Impression: 1. Cerebral atrophy and chronic small vessel ischemic disease 2. Otherwise unremarkable noncontrast CT of the brain Electronically signed by Cory Alcantar 03-06-2025 5:[address] 03/06/25 15:57 CT LEFT HIP WITHOUT CONTRAST: HISTORY: Trauma TECHNIQUE: CT of the left hip was obtained without intravenous contrast. Coronal and sagittal reformats were created. COMPARISON: None FINDINGS: There are multifocal acute traumatic fractures involving the left pubic bone resulting in mild impaction. Acute traumatic fracture of the left inferior pubic ramus. Intramuscular hematomas in the abutting adductor muscles Patient is status post left hip arthroplasty with components in anatomic alignment. IMPRESSION: Multifocal acute traumatic fractures of the left pubic bone resulting mild impaction. Acute traumatic fracture of the left inferior pubic ramus. Intact left hip arthroplasty with components in anatomic alignment. Electronically signed by Charly Fischer 03-06-2025 5:38 PM Medications Administered Current Inpatient Medications Acetaminophen (Acetaminophen 325 Mg Tab) 650 mg PO Q4H PRN PRN Reason: mild Pain (1-3) or Fever Stop: 04/05/25 20:50 Aspirin (Aspirin 81 Mg Ectab) 81 mg PO DAILY TAIWO Stop: 04/06/25 08:59 Last Admin: 03/09/25 08:07 Dose: 81 mg Ceftriaxone Sodium (Rocephin) 2,000 mg in 50 mls @ 100 mls/hr IV Q24H TAIWO Stop: 03/11/25 19:59 Last Infusion: 03/08/25 21:45 Dose: Infused Acetaminophen (Ofirmev) 1,000 mg in 100 mls @ 400 mls/hr IV Q8H TAIWO Stop: 03/10/25 13:59 Last Infusion: 03/09/25 06:14 Dose: Infused Lactobacillus Acidophilus (Advanced Probiotic 625 Mg Capsule) 1,250 mg PO DAILY TAIWO Stop: 04/07/25 12:14 Last Admin: 03/09/25 08:07 Dose: 1,250 mg Magnesium Hydroxide (Magnesium Hydroxide Susp 30 Ml Udc) 30 ml PO Q12H PRN PRN Reason: Constipation Stop: 04/05/25 20:50 Metoprolol Tartrate (Metoprolol Tartrate 25 Mg Tab) 12.5 mg PO BID TAIWO Stop: 04/05/25 20:59 Last Admin: 03/09/25 08:06 Dose: 12.5 mg Multivitamins (Multivitamin Tab) 1 tab PO QAM TAIWO Stop: 04/06/25 08:59 Last Admin: 03/09/25 08:07 Dose: 1 tab Ondansetron HCl (Ondansetron Inj 2 Mg/Ml 2 Ml Vial) 4 mg IV Q6H PRN PRN Reason: Nausea Stop: 04/05/25 20:50 Last Admin: 03/07/25 01:49 Dose: 4 mg Oxycodone/Acetaminophen (Oxycodone/Acetaminophen 5mg/325mg Tab) 0.5 tab PO Q8H PRN PRN Reason: mod -severe Pain (4-10) Stop: 03/21/25 15:26 Pantoprazole Sodium (Pantoprazole 40 Mg Tab) 40 mg PO DAILYBB [facility] Stop: 04/06/25 06:29 Last Admin: 03/09/25 06:00 Dose: 40 mg Polyethylene Glycol (Polyethylene (Miralax) 17 Gm Pack) 17 gm PO DAILY TAIWO Stop: 04/06/25 08:59 Last Admin: 03/09/25 08:06 Dose: 17 gm Pravastatin Sodium (Pravastatin Sod 40 Mg Tab) 40 mg PO QPM TAIWO Stop: 04/05/25 20:59 Last Admin: 03/08/25 21:10 Dose: 40 mg Vitamin D (Cholecalciferol 25 Mcg (1000 Units) Tab) 25 mcg PO DAILY [facility] Stop: 04/06/25 08:59 Last Admin: 03/09/25 08:07 Dose: 25 mcg PG Care Time/CCT Total # of Minutes Spent Total Time Spent with Patient: Total time spent is greater than 50% in coordination of care (as documented) at patient's floor/unit and/or counseling patient: [place] [address] IN/OBS CONSULT LVL 4,60M Patient Type New History Problem Focused Exam Problem Focused Medical Decision Making Low Complexity Diagnoses Palliative care by specialist Z51.5 Encounter for assessment of healthcare decision-making capacity Z02.79 Counseling regarding goals of care Z71.89
[2025-03-10 06:41] LABS: Hematocrit (blood only) 37.9 % (37.0-47.0); Hemoglobin 12.6 g/dl (12.0-16.0); Mean Corpuscular Hemoglobin 32.1 pg (25.0-34.0); Mean Corpuscular Volume 96.4 fL (80.0-100.0); Platelet Count 230 K/uL (130-400); RDW Standard Deviation 48.4 fL (36.4-46.3); Red Blood Count 3.93 M/uL (4.20-5.40); White Blood Count 7.19 K/ul (4.8-10.8)
[2025-03-10 07:17] LABS: Anion Gap 10.0 (3-11); Blood Urea Nitrogen 11.0 mg/dl (6-23); Calcium 8.8 mg/dl (8.6-10.3); Carbon Dioxide 25.0 mmol/L (21-32); Chloride 107.0 mmol/L (98-107); Creatinine Clr Calc Pharmacy 62.7 ml/min; Glucose 97.0 mg/dl (70-99(Fasting)); Potassium 4.7 mmol/L (3.5-5.1); Sodium 142.0 mmol/L (136-145)
--- NOTE | 2025-03-10 07:56 | Hospitalist Progress Note ---
Date of Service March 10, 2025 Assessment & Plan (1) Inferior pubic ramus fracture: (2) CAD (coronary atherosclerotic disease): (3) Hypertension: (4) Delirium: (5) Dementia: Plan Patient is an 89-year-old female with past medical history significant for HLD, HTN, history of NSTEMI in December 2019 s/p cardiac catheterization with culprit vessel small AV groove portion of the left circumflex with subtotal occlusion [not amenable to stenting], CAD with mild to moderate diffuse coronary atherosclerosis as per cardiac catheterization in December 2019, history of remote LAD stent placement, history of ischemic cardiomyopathy with preserved LV systolic function and resting RWMA including apical/septal/apical anterior inferior hypokinesis, chronic venous insufficiency, chronic lymphedema, Raynaud's disease, vitamin B12 deficiency, generalized osteoarthritis, history of bilateral hip arthroplasties, moderate late onset Alzheimer's dementia, anxiety and other problems listed below who presented to the ED via EMS with complaint of left hip pain after sustaining a ground-level fall and was found to have multifocal acute traumatic fractures of the left pubic bone and an acute traumatic of the left inferior pubic ramus. Additional imaging including CXR, CTAP, cervical spine CT, chest CT and head CT w/o any additional traumatic findings. L pubic bone fxs & L interior pubic ramus fx: S/p unwitnessed ground level fall L hip CT: multifocal acute traumatic fxs of the left pubic bone resulting in mild impaction, acute traumatic fx of the left inferior pubic ramus Ortho consult; no surgery indicated WBAT with walker + assist; Fall precautions Soft easy wrap Schedule Tylenol, reduced oxycodone to 2.5mg as needed for severe breakthrough pain - pain controlled [facility] f/u 3-4 weeks DC [place] Avoid narcotics given advanced age and underlying cognitive impairment PT/OT; need for SNF vs Home with Hospice; family wants to pursue SNF Goals of care conversation; counseling, per previous provider on 03/08: Lengthy conversation held with pt , Deep, son and daughter Dolly, at bedside in ED Discussed pt diagnosis with hip fracture and underlying cognition. Pt is able to do most of her ADL's independently; however, appears she requires redirection and guidance throughout the day Discussed SNF vs Acute rehab and challenges with pain/retaining PT recommendations, etc Discussed code status; remain full code, per . Re-discussion needed, but apparent bigger conversations regarding goals have not taken place For now, goal is PT/OT for SNF ([facility] possible preference of family; open) to see how things go over a short term SNF approach. If overarching decline, or intractable pain, discussed what hospice options look like as well Formal palliative care consult - to see today Elderly patients with hip fractures tend to have poor outcomes primarily due to to the high risk of immobility related complications, persistent pain and inability to usually regain pre function ability. Some poor outcomes could be included in entirely rapid deconditioning, development of pressure ulcer, pneumonia, VTE, UTI all of which are usually exacerbated by prolonged immobility. Urinary tract Infection: Pt w/o urinary sx; however pt's daughter states she's prev been asymptomatic w/ UTIs before Urine Culture returned 03/08 with Klebsiella pneumonia; final culture pansensitive; continue IV Rocephin while admitted, EOT 03/11 Probiotic ordered HTN Continue Metoprolol w/ hold parameters CAD H/o NSTEMI H/o ischemic cardiomyopathy F/w [employer] cards H/O of bare-metal LAD stent placement in 2000 NSTEMI 2020 s/p cath with culprit vessel small AV groove portion of the left circumflex with subtotal occlusion [not amenable to stenting] preserved LV systolic function and resting RWMA including apical/septal/apical anterior inferior hypokinesis EKG unchanged from prior Continue ASA, metoprolol, statin Chronic lymphedema Hold HCTZ for now with bordeline low BP GERD Takes pantoprazole; continue Pulmonary nodules Appear unchanged from prior imaging F/U as outpatient Indeterminate thyroid nodule noted on CTAP--> will need outpt thyroid US >> PCP can arrange Disposition: DVT Prophylaxis: SCDs/TEDs; ASA PCP: Gee Gamez, DO PT/OT recommending rehab, ideal in SNF setting, referrals pending at [facility], CM working on bed Will call family this afternoon for update. Patient seen in collaboration with Dr. Neff. Please see addendum. I spent a total of 50 minutes coordinating, documenting, and providing care for this patient excluding time spent in the performance of separately billed services or time spent by another provider/QHP. Admission and Anticipated Discharge Date Admission Date: March 06, 2025 Supervising Physician Co-Signing Physician Notes Patient is seen and examined at bedside. States having poor sleep overnight. Family at bedside. Admits to have pelvic pain with movement. No other complaints. Waiting for placement. On exam patient is thin, frail, elderly, no apparent distress, normocephalic atraumatic, EOMI, normal breath sounds, clear to auscultation, S1-S2, no murmur, no pedal edema, abdomen soft, nontender, normal bowel sounds, alert, awake, grossly nonfocal deficits. Currently being managed for pubic bone fracture, conservative management, appreciate orthopedics input, needs follow-up with orthopedics on discharge. Also being treated for urinary tract infection with IV Rocephin. Plan to transition to oral antibiotics on discharge. Palliative care following to address goals of care. Family meeting arranged for tomorrow. Case management to help with discharge planning. I personally interviewed and examined the patient at bedside. I have reviewed the advanced practitioner's documentation on the date of service referred in note and agree with plan. Patient's care is coordinated with Freya Simental PA-C. Please refer to the documentation above for details of patient's presentation and for discussion of other issues. I spent a total [id number] coordinating, documenting, and providing care for this patient excluding time spent in the performance of separately billed services or time spent by another provider/QHP. Subjective Pt lying in her hospital bed this AM; sitter at bedside Pleasant, cooperative, does not appear to be in any distress Unreliable for most interaction due to underlying cognition Decreased pain with movement per observation Continues to have limited appetite. Will drink fluids with prompting Review of Systems Review of Systems: Unobtainable due to cognitive status Physical Exam Physical Exam: Gen: WD/WN, NAD, A&Ox1, pleasantly confused, cooperative HEENT: Normocephalic, atraumatic, mucous membranes dry oropharynx Lung: Clear to Auscultation bilaterally Heart: Regular rate, regular rhythm Abdomen: Soft, NT, ND +BS x 4 Extremities: Minimal L pelvis/hip TTP, no edema Skin: Warm, no rash Results & Data Results & Data Vital Signs (Past 12 Hours) Vital Signs Temp Pulse Pulse Resp BP Pulse Ox O2 Del Method 03/10/25 07:20 94 H 03/10/25 07:08 36.9 C 102 H 18 136/60 93 Room Air 03/10/25 05:13 36.6 C 86 20 148/72 H 93 Room Air 03/09/25 22:54 36.5 C 100 H 20 151/72 H 92 Room Air 03/09/25 21:51 76 03/09/25 20:00 Room Air Laboratory Results Short CBC 03/10/25 Range/Units 06:14 WBC 7.19 (4.8-10.8) K/ul Hgb 12.6 (12.0-16.0) g/dl Hct 37.9 (37.0-47.0) % Plt Count 230 (130-400) K/uL BMP 03/10/25 06:14 Sodium 142 Potassium 4.7 Chloride 107 Carbon Dioxide 25 BUN 11 Creatinine 0.47 L Glucose 97 Calcium 8.8 Diagnostic Findings Chest X-Ray 03/06/25 15:53 EXAM: Portable AP chest radiograph TECHNIQUE: AP portable radiograph of the chest was obtained. INDICATION: Shortness of breath Comparison: Chest radiograph January 08, 2023 FINDINGS: LINES and TUBES: CARDIOVASCULAR: Cardiac silhouette is stably and mildly enlarged in size. Atherosclerosis of the thoracic aorta. LUNGS/PLEURA: No focal consolidation identified. Chronic interstitial lung changes. No significant pleural fluid. No discernible pneumothorax. OSSEOUS/OTHER: No displaced acute osseous process identified. Bilateral shoulder reverse arthroplasties. IMPRESSION: No radiographic evidence of acute cardiopulmonary process. Electronically signed by Charly Fischer 03-06-2025 4:39 PM Abdomen/Pelvis CT 03/06/25 15:54 CT ABDOMEN and PELVIS with INTRAVENOUS CONTRAST HISTORY: Abdominal pain TECHNIQUE: CT abdomen and pelvis with contrast. IV CONTRAST: 100 mL of OMNIPAQUE 300 ENTERIC CONTRAST: Not Given COMPARISON: None FINDINGS: LOWER CHEST: Please see separately dictated thoracic CT report LIVER: No focal lesion identified. Hepatic steatosis and hepatomegaly GALLBLADDER/BILIARY: Surgically absent gallbladder. Mild intrahepatic biliary dilation and prominent caliber to the common bile duct may be an expected finding following cholecystectomy and allowing for patient age. SPLEEN: Unremarkable. PANCREAS: Atrophic parenchyma without discrete mass.. ADRENALS: Unremarkable. KIDNEYS: Small cortical cysts. No stones or hydronephrosis identified. PERITONEUM/RETROPERITONEUM. No lymphadenopathy by size criteria. No aortic aneurysm. Extensive atherosclerosis with stenoses of the celiac trunk, SMA, the renal arteries and the [place]. Small presacral fluid that is nonspecific GASTROINTESTINAL: No obstruction. Colonic diverticulosis without evidence of diverticulitis. REPRODUCTIVE: Poorly evaluated due to obscuration by streak artifact. No obvious suspicious pelvic masses identified. BONES: Please refer to separately dictated left hip CT report for additional findings. Multiple chronic appearing mild compression deformities of the lumbar spine. No significant retropulsion is identified IMPRESSION: No evidence of acute visceral trauma to the abdomen or the pelvis. Electronically signed by Charly Fischer 03-06-2025 5:[address] 03/06/25 15:54 CT CERVICAL SPINE WITHOUT CONTRAST: HISTORY: TRAUMA TECHNIQUE: Noncontrast CT examination of the cervical spine is performed. Coronal and sagittal reformats were created. COMPARISON: Cervical spine CT June 06, 2022 FINDINGS: CERVICAL SPINE: There is no significant vertebral body height loss. No acute traumatic fracture identified. There is no significant spondylolisthesis. Multilevel degenerative changes characterized by disc osteophyte complex, bilateral facet and uncovertebral hypertrophy resulting and neural foraminal narrowing at multiple levels, worst at mid to lower spine. Visualized soft tissues of neck are unremarkable. IMPRESSION: No acute traumatic fracture of the cervical spine. Multilevel degenerative changes as above Electronically signed by Charly Fischer 03-06-2025 5:[address] 03/06/25 15:54 Clinical history: Fall Technique: Axial computed tomography images were obtained of the chest after the administration of intravenous contrast Comparison is made to the prior CT dated 12/23/2019 Findings: There is an unchanged 4 mm left lower lobe nodule. There is unchanged linear opacity along the left major fissure. There are unchanged small peripheral nodular opacities in the right upper lobe. There is no definite change in a 3 mm nodular opacity in the right lower lobe. There is no pleural effusion or pneumothorax. There are irregular opacities in the lung apices, likely due to pleural parenchymal scarring. No endobronchial lesion is seen There is no mediastinal, hilar, or axillary adenopathy. The thoracic aorta appears unremarkable with no sign of aneurysm or dissection. There is no pericardial effusion. There is coronary atherosclerosis There is a 1 cm nodule in the left thyroid lobe No fracture is seen. No focal osseous lesion is evident. There are bilateral shoulder arthroplasties Impression: 1. Several unchanged pulmonary nodules, benign given the long-term stability 2. Indeterminate thyroid nodule. A thyroid ultrasound could be obtained for further evaluation 3. Coronary atherosclerosis ACT 112: Positive. There are findings on this exam that require communication between the performing entity and the patient following Patient Test Result Information Act ([place] ACT 112) guidelines. Electronically signed by Cory Alcantar 03-06-2025 5:[address] 03/06/25 15:54 Clinical History: Fall Technique: Axial computed tomography images were obtained of the brain without intravenous contrast. Comparison is made to the prior CT dated 12/24/2019 Findings: There is unchanged cerebral atrophy, within expected limits for the patient's age. Areas of decreased attenuation are seen within the periventricular white matter, likely representing chronic small vessel ischemic disease. There are calcifications along the falx cerebri. There is no definite sign of acute or old infarction. No intracranial hemorrhage is evident. No definite mass lesion is seen on this noncontrast examination. There is no midline shift or other form of herniation. No hydrocephalus is seen. No fracture is identified. The orbits and the visualized paranasal sinuses appear unremarkable. The mastoid air cells appear clear. Impression: 1. Cerebral atrophy and chronic small vessel ischemic disease 2. Otherwise unremarkable noncontrast CT of the brain Electronically signed by Cory Alcantar 03-06-2025 5:[address] 03/06/25 15:57 CT LEFT HIP WITHOUT CONTRAST: HISTORY: Trauma TECHNIQUE: CT of the left hip was obtained without intravenous contrast. Coronal and sagittal reformats were created. COMPARISON: None FINDINGS: There are multifocal acute traumatic fractures involving the left pubic bone resulting in mild impaction. Acute traumatic fracture of the left inferior pubic ramus. Intramuscular hematomas in the abutting adductor muscles Patient is status post left hip arthroplasty with components in anatomic alignment. IMPRESSION: Multifocal acute traumatic fractures of the left pubic bone resulting mild impaction. Acute traumatic fracture of the left inferior pubic ramus. Intact left hip arthroplasty with components in anatomic alignment. Electronically signed by Charly Fischer 03-06-2025 5:38 PM (1) Inferior pubic ramus fracture Encounter type: initial encounter Fracture type: closed Laterality: left Qualified Code(s): S32.592A - Other specified fracture of left pubis, initial encounter for closed fracture
--- NOTE | 2025-03-10 11:17 | Palliative Care Progress Note ---
Date of Service March 10, 2025 Assessment & Plan (1) Palliative care by specialist: Plan: Met with pt and her , Deep, son Kentrell and daughter Irena to discuss GOC. Introduced Palliative Medicine and explained our role in advanced care planning, symptom management and navigation through the progression of life limiting disease. Patient and/or family were receptive to palliative services for goals of care discussions. Reviewed we are different from hospice, a home health nurse visiting service. (2) Encounter for assessment of healthcare decision-making capacity: Plan: Patient exhibits current lack of decisional capacity based on the inability to convey understanding of personal PMHx, current medical condition, treatment options nor the risks / benefits/ potential outcomes of accepting/declining those options, and inability to make decisions based on such knowledge. Hospital does not have written documentation of patient wishes concerning her chosen proxy for medical decisions. Per PA [id number], in absence of written documentation of patient wishes, pt's proxy for medical decisions would be her spouse Deep Anthony. Pt does require a proxy for medical decisions. (3) Counseling regarding goals of care: Plan: Lengthy conversation held with pt , Deep, son Kentrell and daughter Irena, in 2E conference room from 11:15 - 12:20 Deep shared that he and the pt have been for 70y and have 5 adult children ( Efrain, Eulalia, Irena, Kentrell and Amelia Subramanian) and multiple grand children and great grand children. All family lives in the area and are very involved in pt's life. 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 They described Ledy as a highly intelligent, active, and strong willed person. Irnea shared concern that the pt had refused to admit or accept her diagnosis of dementia and refused to take medications aimed at delaying the progression of the disease. She shared belief that the patient was raised to believe that diagnosis of dementia meant "you are going crazy" and this may have played into her attempts to cover for her cognitive deficits and refuse treatment. Family did not have a strong understanding of dementia, so we spent a substantial amount of time discussing the progressive nature of dementia. Alzheimers disease is incurable and irreversible, and can include progressive/worsening memory loss, confusion, language difficulties/lack of comprehension skills/loss of verbal skills eventually, mood changes, impaired judgment, trouble with motor skills/coordination/balance issues, visual and spa tial problems, hallucinations, and personality changes. The rate of progression in mixed dementia can vary widely from person to person. Factors such as the types of dementia involved, overall health, and genetics can influence the speed of progression. Some individuals experience a more gradual decline, while others may progress more rapidly through the stages. Discussed how Alzheimers disease is caused by a build-up of faulty proteins in and around brain cells. The most common and well-known symptom of Alzheimers disease is having problems with memory particularly memories of recent events or conversations and a person with Alzheimers is likely to get lost easily, have trouble finding words when theyre speaking and become confused about time or place. We spoke about the stages of dementia: Stage 1: Normal Functioning: In the early stage, individuals show no signs of dementia, and their cognitive function is normal Stage 2: Very Mild Cognitive Decline: Minor memory lapses and forgetfulness may occur but are often attributed to normal aging Stage 3: Mild Cognitive Decline: Early signs of dementia become more noticeable, such as memory problems and difficulty finding words Stage 4: Moderate Cognitive Decline: Memory loss becomes more pronounced, and individuals may struggle with tasks like managing finances and planning Stage 5: Moderately Severe Cognitive Decline: Daily functioning becomes challenging, and individuals may require assistance with tasks like dressing and bathing Stage 6: Severe Cognitive Decline: In this stage, individuals need substantial help with daily activities, and communication becomes increasingly difficult Stage 7: Very Severe Cognitive Decline: In the final stage, individuals may lose the ability to communicate, walk, and perform basic tasks. They require [id number] care. Reviewed pt is in Stage 5 and likely turning a page to the more advanced stages of dementia which may create problems with poor oral intake leading to malnutrition, dehydration and other complications that can be cyclical and progressive, unfortunately, and trying to "fix" any one thing will not cure/reverse/fix the other underlying chronic issues. Deep expressed that he feels pt is in stage 4 and returning home will allow her to be more independent. We discussed that the patient will continue to progress through the stages of dementia at an unpredictable pace and urged family discussions around planning for future needs in event they face continued rapid cognitive decline. oe shared that he has had family members with dementia that have progressed from near complete independence to Stage 7 in a matter of days. Irena shared concern that the pt does have intermittent lucid days where she appears mostly independent with ADLs, but overall, her dementia seems to be progressing and likely at stage 5-6. they shared that the patient has been having increasing "hallucinations" where she "remembers" people being in the house that were not there, blames things that have happened on people who are not present, etc. Additionally discussed pt's hip fracture iso underlying dementia and the difficulty involved in recovery with PT/rehab for pt's with cognitive challenges. Deep shared that the primary goals is to get her back home and s adamant that she not be placed in SNF/PCH due to concerns that she will be "doped up and allowed to ". He sited two friends that in his perspective had suspicious deaths after being admitted to [facility]. I expressed concerns for the level of nursing care that will be required as pt's dementia progresses and suggested that the family discuss how this could be managed by family and/or paid caretakers. Elderly patients with hip fractures tend to have poor outcomes primarily due to to the high risk of immobility related complications, persistent pain and inability to usually regain pre function ability. Some poor outcomes could include, but not limited to, rapid deconditioning, development of pressure ulcer, pneumonia, VTE, UTI all of which are usually exacerbated by prolonged immobility. Given pt's advanced dementia, we discussed code status and helped them un derstand that CPR is only done after a person has and involves uncomfortable and invasive procedures that, if successful. have high risk of multiple complications including but not limited to rib fractures, pneumo/hemothorax, ERIKA, ventilator dependence, anoxic brain injury, and correction/permanent cognitive and functional deficits. CPR survival: Only about 10% of patients who have [id number] sudden cardiac arrest survive to hospital discharge, with many survivors having neurologic impairment. This rate is even lower among patients with serious coexisting conditions, ie chance of survival to hospital discharge for in- hospital CPR in older people is low to moderate (15%) and decreases with age, comorbidities, performance status and frailty: for pts > 70 yo, more than half of the patients who initially survived resuscitation in the hospital before hospital discharge. The pooled survival to discharge after in-hospital CPR was 18% for patients between 70 and 79 years old, 15% for patients between 80 and 89 years old and 11% for patients of 90 years and older. (Anil HAQUEY, Phil LJ, Mickey F, et al. Trends in short- and long-term survival among [id number] cardiac arrest patients alive at hospital arrival. Circulation 2014;130:1883- 1890. AND Flynn Miranda, Sharri Chahal, Nuris Hall, et al. Performance of clinical risk scores to predict mortality and neurological outcome in cardiac arrest patients. Resuscitation 2019;136:21-29.) Deep shared that he would not want to see the pt resuscitated because he knows that she would not wish to be kept alive on machines. He shared that the two most important things for his are being home and being with family. He shared desire to have her discharged to home if at all possible. Deep tearfully shared that if the pt has poor prognosis he would want to be with her in their home at the time she dies and this is his top priority. Deep requests that we plan a family meeting with all of his children tomorrow. Irena agreed to set this up for 11am. (4) Pain: Plan: r/t pelvic Fx after GLF - pt appears comfortable with minimal PRN opiate use. Avoid narcotics given advanced age and underlying dementia, reserve for pain refractory to NSAIDs Continue Tylenol 650 mg PO Q4H PRN Continue oxy 2.5mg q8h PRN for BTP Plan Family meeting planned for 11am on 03/11 Admission and Anticipated Discharge Date Admission Date: March 06, 2025 Subjective Pt lying in her hospital bed this AM; Deep, daughter Irena, and son Kentrell @ bedside. Pt in no apparent distress. She is awake, alert oriented to self; pleasantly confused but continues to require 1:1 sitter due to impulsivity. Received one dose of low dose oxy and one dose of Zyprexa overnight. Continues to appear agitated pulling at sheets and trying to climb out of bed. Review of Systems Review of Systems: Unobtainable due to cognitive status Physical Exam Constitutional: well developed, + thin, cooperative and comfortable pleasantly confused Eyes: PERRL, conjunctivae normal, anicteric sclerae ENMT: external ear and nose normal, oropharynx normal Neck: trachea midline, no thyromegaly Cardiovascular: RRR, no murmur, no edema Gastrointestinal (Abdomen): normal bowel sounds, soft, nontender, no hepatosplenomegaly Skin: no rashes, warm and dry + turgor decreased and + pallor Neurologic: PERRL, EOMI, accommodation nl, no face palsy, no dysarthria Psychiatric: Orientation: alert, oriented to person and cooperative Results & Data Vital Signs (Past 12 Hours) Vital Signs Temp Pulse Pulse Resp BP Pulse Ox O2 Del Method 03/10/25 07:20 94 H 03/10/25 07:08 36.9 C 102 H 18 136/60 93 Room Air 03/10/25 05:13 36.6 C 86 20 148/72 H 93 Room Air Laboratory Results Abnormal lab results 03/10/25 Range/Units 06:14 RBC 3.93 L (4.20-5.40) M/uL RDW Std Deviation 48.4 H (36.4-46.3) fL MPV 8.7 L (9.4-12.4) fL Creatinine 0.47 L (0.6-1.2) mg/dl BUN/Creatinine Ratio 23.4 H (10-20) Diagnostic Findings Chest X-Ray 03/06/25 15:53 EXAM: Portable AP chest radiograph TECHNIQUE: AP portable radiograph of the chest was obtained. INDICATION: Shortness of breath Comparison: Chest radiograph January 08, 2023 FINDINGS: LINES and TUBES: CARDIOVASCULAR: Cardiac silhouette is stably and mildly enlarged in size. Atherosclerosis of the thoracic aorta. LUNGS/PLEURA: No focal consolidation identified. Chronic interstitial lung changes. No significant pleural fluid. No discernible pneumothorax. OSSEOUS/OTHER: No displaced acute osseous process identified. Bilateral shoulder reverse arthroplasties. IMPRESSION: No radiographic evidence of acute cardiopulmonary process. Electronically signed by Charly Fischer 03-06-2025 4:39 PM Abdomen/Pelvis CT 03/06/25 15:54 CT ABDOMEN and PELVIS with INTRAVENOUS CONTRAST HISTORY: Abdominal pain TECHNIQUE: CT abdomen and pelvis with contrast. IV CONTRAST: 100 mL of OMNIPAQUE 300 ENTERIC CONTRAST: Not Given COMPARISON: None FINDINGS: LOWER CHEST: Please see separately dictated thoracic CT report LIVER: No focal lesion identified. Hepatic steatosis and hepatomegaly GALLBLADDER/BILIARY: Surgically absent gallbladder. Mild intrahepatic biliary dilation and prominent caliber to the common bile duct may be an expected finding following cholecystectomy and allowing for patient age. SPLEEN: Unremarkable. PANCREAS: Atrophic parenchyma without discrete mass.. ADRENALS: Unremarkable. KIDNEYS: Small cortical cysts. No stones or hydronephrosis identified. PERITONEUM/RETROPERITONEUM. No lymphadenopathy by size criteria. No aortic aneurysm. Extensive atherosclerosis with stenoses of the celiac trunk, SMA, the renal arteries and the [place]. Small presacral fluid that is nonspecific GASTROINTESTINAL: No obstruction. Colonic diverticulosis without evidence of diverticulitis. REPRODUCTIVE: Poorly evaluated due to obscuration by streak artifact. No obvious suspicious pelvic masses identified. BONES: Please refer to separately dictated left hip CT report for additional findings. Multiple chronic appearing mild compression deformities of the lumbar spine. No significant retropulsion is identified IMPRESSION: No evidence of acute visceral trauma to the abdomen or the pelvis. Electronically signed by Charly Fischer 03-06-2025 5:[address] 03/06/25 15:54 CT CERVICAL SPINE WITHOUT CONTRAST: HISTORY: TRAUMA TECHNIQUE: Noncontrast CT examination of the cervical spine is performed. Coronal and sagittal reformats were created. COMPARISON: Cervical spine CT June 06, 2022 FINDINGS: CERVICAL SPINE: There is no significant vertebral body height loss. No acute traumatic fracture identified. There is no significant spondylolisthesis. Multilevel degenerative changes characterized by disc osteophyte complex, bilateral facet and uncovertebral hypertrophy resulting and neural foraminal narrowing at multiple levels, worst at mid to lower spine. Visualized soft tissues of neck are unremarkable. IMPRESSION: No acute traumatic fracture of the cervical spine. Multilevel degenerative changes as above Electronically signed by Charly Fischer 03-06-2025 5:[address] 03/06/25 15:54 Clinical history: Fall Technique: Axial computed tomography images were obtained of the chest after the administration of intravenous contrast Comparison is made to the prior CT dated 12/23/2019 Findings: There is an unchanged 4 mm left lower lobe nodule. There is unchanged linear opacity along the left major fissure. There are unchanged small peripheral nodular opacities in the right upper lobe. There is no definite change in a 3 mm nodular opacity in the right lower lobe. There is no pleural effusion or pneumothorax. There are irregular opacities in the lung apices, likely due to pleural parenchymal scarring. No endobronchial lesion is seen There is no mediastinal, hilar, or axillary adenopathy. The thoracic aorta appears unremarkable with no sign of aneurysm or dissection. There is no pericardial effusion. There is coronary atherosclerosis There is a 1 cm nodule in the left thyroid lobe No fracture is seen. No focal osseous lesion is evident. There are bilateral shoulder arthroplasties Impression: 1. Several unchanged pulmonary nodules, benign given the long-term stability 2. Indeterminate thyroid nodule. A thyroid ultrasound could be obtained for further evaluation 3. Coronary atherosclerosis ACT 112: Positive. There are findings on this exam that require communication between the performing entity and the patient following Patient Test Result Information Act ([place] ACT 112) guidelines. Electronically signed by Cory Alcantar 03-06-2025 5:[address] 03/06/25 15:54 Clinical History: Fall Technique: Axial computed tomography images were obtained of the brain without intravenous contrast. Comparison is made to the prior CT dated 12/24/2019 Findings: There is unchanged cerebral atrophy, within expected limits for the patient's age. Areas of decreased attenuation are seen within the periventricular white matter, likely representing chronic small vessel ischemic disease. There are calcifications along the falx cerebri. There is no definite sign of acute or old infarction. No intracranial hemorrhage is evident. No definite mass lesion is seen on this noncontrast examination. There is no midline shift or other form of herniation. No hydrocephalus is seen. No fracture is identified. The orbits and the visualized paranasal sinuses appear unremarkable. The mastoid air cells appear clear. Impression: 1. Cerebral atrophy and chronic small vessel ischemic disease 2. Otherwise unremarkable noncontrast CT of the brain Electronically signed by Cory Alcantar 03-06-2025 5:[address] 03/06/25 15:57 CT LEFT HIP WITHOUT CONTRAST: HISTORY: Trauma TECHNIQUE: CT of the left hip was obtained without intravenous contrast. Coronal and sagittal reformats were created. COMPARISON: None FINDINGS: There are multifocal acute traumatic fractures involving the left pubic bone resulting in mild impaction. Acute traumatic fracture of the left inferior pubic ramus. Intramuscular hematomas in the abutting adductor muscles Patient is status post left hip arthroplasty with components in anatomic alignment. IMPRESSION: Multifocal acute traumatic fractures of the left pubic bone resulting mild impaction. Acute traumatic fracture of the left inferior pubic ramus. Intact left hip arthroplasty with components in anatomic alignment. Electronically signed by Charly Fischer 03-06-2025 5:38 PM Medications Administered Current Inpatient Medications Acetaminophen (Acetaminophen 325 Mg Tab) 650 mg PO Q4H PRN PRN Reason: mild Pain (1-3) or Fever Stop: 04/05/25 20:50 Aspirin (Aspirin 81 Mg Ectab) 81 mg PO DAILY [facility] Stop: 04/06/25 08:59 Last Admin: 03/10/25 07:47 Dose: 81 mg Ceftriaxone Sodium (Rocephin) 2,000 mg in 50 mls @ 100 mls/hr IV Q24H [facility] Stop: 03/11/25 19:59 Last Infusion: 03/09/25 20:57 Dose: Infused Acetaminophen (Ofirmev) 1,000 mg in 100 mls @ 400 mls/hr IV Q8H [facility] Stop: 03/10/25 13:59 Last Infusion: 03/10/25 06:06 Dose: Infused Lactobacillus Acidophilus (Advanced Probiotic 625 Mg Capsule) 1,250 mg PO DAILY [facility] Stop: 04/07/25 12:14 Last Admin: 03/10/25 07:46 Dose: 1,250 mg Magnesium Hydroxide (Magnesium Hydroxide Susp 30 Ml Udc) 30 ml PO Q12H PRN PRN Reason: Constipation Stop: 04/05/25 20:50 Metoprolol Tartrate (Metoprolol Tartrate 25 Mg Tab) 12.5 mg PO BID [facility] Stop: 04/05/25 20:59 Last Admin: 03/10/25 07:46 Dose: 12.5 mg Multivitamins (Multivitamin Tab) 1 tab PO QAM [facility] Stop: 04/06/25 08:59 Last Admin: 03/10/25 07:47 Dose: 1 tab Ondansetron HCl (Ondansetron Inj 2 Mg/Ml 2 Ml Vial) 4 mg IV Q6H PRN PRN Reason: Nausea Stop: 04/05/25 20:50 Last Admin: 03/07/25 01:49 Dose: 4 mg Oxycodone/Acetaminophen (Oxycodone/Acetaminophen 5mg/325mg Tab) 0.5 tab PO Q8H PRN PRN Reason: mod -severe Pain (4-10) Stop: 03/21/25 15:26 Last Admin: 03/10/25 07:51 Dose: 0.5 tab Pantoprazole Sodium (Pantoprazole 40 Mg Tab) 40 mg PO DAILYBB [facility] Stop: 04/06/25 06:29 Last Admin: 07/22/25 05:49 Dose: 40 mg Polyethylene Glycol (Polyethylene (Miralax) 17 Gm Pack) 17 gm PO DAILY TAIWO Stop: 04/06/25 08:59 Last Admin: 03/10/25 07:47 Dose: 17 gm Pravastatin Sodium (Pravastatin Sod 40 Mg Tab) 40 mg PO QPM TAIWO Stop: 04/05/25 20:59 Last Admin: 03/09/25 20:29 Dose: 40 mg Vitamin D (Cholecalciferol 25 Mcg (1000 Units) Tab) 25 mcg PO DAILY TAIWO Stop: 04/06/25 08:59 Last Admin: 03/10/25 07:47 Dose: 25 mcg PG Care Time/CCT Total # of Minutes Spent Total Time Spent with Patient: Total time spent is greater than 50% in coordination of care (as documented) at patient's floor/unit and/or counseling patient: Advanced Care Planning 63198 Advanced Care Planning 30 Min 21342 Advanced Care Planning Additional 30 Min C[place] [address] SUB INP/OBS CARE 2/35MIN Patient Type Established Medical Decision Making Moderate Complexity Diagnoses Palliative care by specialist Z51.5 Encounter for assessment of healthcare decision-making capacity Z02.79 Counseling regarding goals of care Z71.89 Pain R52 Additional Codes Advanced Care Planning - 70859 Advanced Care Planning 30 Min: 66881 Advanced Care Planning 30 Min ([id number]) Advanced Care Planning - 75424 Advanced Care Planning Additional 30 Min: 51820 Advanced Care Planning Additional 30 Min ([id number])
[2025-03-10] MEDS: ACETAMINOPHEN 325 MG TAB PO PRN (12:29)
[2025-03-10] MEDS: SODIUM CHLORIDE 0.9% 500 ML IV SCH (12:57)
[2025-03-10] MEDS: MELATONIN 3 MG TAB PO PRN (20:15)
[2025-03-11 07:27] LABS: Hematocrit (blood only) 36.3 % (37.0-47.0); Hemoglobin 12.3 g/dl (12.0-16.0); Mean Corpuscular Hemoglobin 32.4 pg (25.0-34.0); Mean Corpuscular Volume 95.5 fL (80.0-100.0); Platelet Count 231 K/uL (130-400); RDW Standard Deviation 47.4 fL (36.4-46.3); Red Blood Count 3.80 M/uL (4.20-5.40); White Blood Count 5.98 K/ul (4.8-10.8)
[2025-03-11 07:49] LABS: Anion Gap 8.0 (3-11); Blood Urea Nitrogen 10.0 mg/dl (6-23); Calcium 8.5 mg/dl (8.6-10.3); Carbon Dioxide 24.0 mmol/L (21-32); Chloride 110.0 mmol/L (98-107); Creatinine Clr Calc Pharmacy 87.9 ml/min; Glucose 106.0 mg/dl (70-99(Fasting)); Potassium 3.8 mmol/L (3.5-5.1); Sodium 142.0 mmol/L (136-145)
--- NOTE | 2025-03-11 09:09 | Palliative Family Discussion ---
Date of Service March 11, 2025 Patient Directed Conference Time of Meetin:30 - 13:00 Participants: Adrianne Jimenez AGACNP Patient participation: no Patient Support System: spouse and five adult children Other Healthcare Provider Participation: None Meeting Location: 2N conference room Advanced Directive available: no If yes, descriptors: The patient's surrogate medical decision maker participated: spouse. Deep Bah was present Legally authorized health care proxy: spouse Other surrogate: n/a A family meeting was held for RUBIN BAH. This meeting was necessary for determining the appropriate course of treatment. Topics of Discussion Topics of Discussion: 1. dementia - anticipatory guidance for disease progression 2. goals of care 3. code status 4. POLST Other Content of Meetin. Opportunity given for participants to speak and ask questions. 2. Participants were assured of attention to patient comfort. 3. Reassurance provided. 4. Support was provided for informed, good-patria decisions. 5. Emotions expressed by family were acknowledged and addressed. 6. Follow-up Outpatient: n/a 7. Plan of Care: DNR/DNI, continue all other life prolonging therapy at this time Patient exhibits current lack of decisional capacity based on the inability to convey understanding of personal PMHx, current medical condition, treatment options nor the risks / benefits/ potential outcomes of accepting/declining those options, and inability to make decisions based on such knowledge. Hospital does not have written documentation of patient wishes concerning her chosen proxy for medical decisions. Per PA [id number], in absence of written documentation of patient wishes, pt's proxy for medical decisions would be her spouse Deep Bah. Pt does require a proxy for medical decisions. Lengthy conversation held with pt , Deep, son Kentrell and 5 adult children ( Efrain Bah, Eulalia Bah, Irena Bah, Kentrell Wilsonnorma and Amelia Subramanian). We reviewed the progressively debilitating nature of dementia and prognostication. Helped family understand and differentiate delirium and dementia. Reinforced previous discussion of Stages of dementia and helped family understand that pt appears to be in stage 5 and progressing to stage 6. Discussed that the patient may be experiencing delirium overlaying her baseline dementia. Unfortunately there are no known medications to cure or shorten the duration of delirium; rather PRN antipsychotics are recommended to help with sleep/appetite/psychomotor agitation and hallucinations if these symptoms are causing significant distress and/or interfering with acute safety. Duration of delirium varies broadly with persistent delirium (defined as lasting for weeks or months) occurring frequently with [id number]% of patients exhibiting some symptoms of delirium at 6 months after symptom onset, see:Josselyn Chaney., Shey Kwok., Charles Hoganet al.Delirium.Carey Rev Dis Primers6, 90 (2020). [email or web address]://[email or web address]. Goal is to avoid medication management of behaviors if possible by maximizing non-pharmacologic strategies for behavioral management. Standard Delirium Care - Search for occult etiologies of delirium including toxic, metabolic, and infectious. Medication effects and drug/ETOH withdrawal should also be sought. - Avoid restraints other than lap belts. Redirection by family/friends, or medical staff is more effective and promotes recovery. - Encourage patient to wear glasses and hearing aides - Encourage 24 hour visitation from family/friends - Encourage family/friends to redirect patient to avoid need for meds/restraints - Avoids benzos - Use atypical neuroleptics in a low scheduled dose in combination with PRN for agitation - *Please note: the atypical Neuroleptics are associated with a slight but real increased in MACE and should be used sparingly especially in the fdc - Low dose IV morphine can be used with caution if neuroleptics fail for acute delirium - Redirection by family, friends, and medical staff can be more effective and sa yissel than medication use. - Pain causes delirium and should be addressed in a balanced, conservative, but effective manner. - During the day, patient should be awake. Lights should be on. TV should be on. Patient should be placed in chair with restraints if possible and allowed into howell or outside in wheelchair if can tolerate. - At night, lights should be dimmed and stimulation should be minimized. A scheduled dose of neuroleptic may be given at least 2 hours prior to typical onset of - Room noises can cause anxiety inducing hallucinations. If the room is loud, has atypical noises (construction, beeping, loud neighbor, etc) or patient is having negative reaction to ambient stimuli, patient should be moved to another room - Nutritional status should be addressed. Any nutritional deficits should be aggressively remediated. - High carbohydrate meals should be served - Please make family aware that delirium may last for weeks to months. - Patients with baseline Organic brain syndrome are more prone to delirium and take longer to recover - Patient with baseline organic brain syndromes, especially neurodegenerative ones like Dementia of Alzheimer's type may never recovery back to pre-morbid baseline. Discussed the patient's values and family again shared that ultimate goal is for her to return home. Family at this time would like patient to have IPR if possible to optimize strength and function prior to return to home. Discussed code status and helped family understand that CPR is only done after a person has and involves uncomfortable and invasive procedures that, if successful. have high risk of multiple complications including but not limited to rib fractures, pneumo/hemothorax, ERIKA, ventilator dependence, anoxic brain injury, and extermination supervisor/permanent cognitive and functional deficits. CPR survival: Only about 10% of patients who have cte-ps-gypiybtx sudden cardiac arrest survive to hospital discharge, with many survivors having neurologic impairment. This rate is even lower among patients with serious coexisting conditions, ie chance of survival to hospital discharge for in- hospital CPR in older people is low to moderate (15%) and decreases with age, comorbidities, performance status and frailty: for pts > 70 yo, more than half of the patients who initially survived resuscitation in the hospital before hospital discharge. The pooled survival to discharge after in-hospital CPR was 18% for patients between 70 and 79 years old, 15% for patients between 80 and 89 years old and 11% for patients of 90 years and older. (Anil MOTA, Phil LJ, Mickey F, et al. Trends in short- and long-term survival among wuh-wd-amclixeg cardiac arrest patients alive at hospital arrival. Circulation 2014;130:1883- 1890. AND Flynn C, Sharri T, Nuris R, et al. Performance of clinical risk scores to predict mortality and neurological outcome in cardiac arrest patients. Resuscitation 2019;136:21-29.) Family request DNR/DNI status and POLST form completed with spouse. We will sign off on this patient as goals of care are clearly established for DNR/DNI but continue all other life prolonging therapies Thank you for including Palliative Care in the management of this patient. Please call with any questions or concerns regarding this consultation. Time Involved in Meeting: I spent 60 minutes overall addressing this case: 10 in medical data review/discussion with referring provider(s) and/or preparation for the visit 30 in direct interaction with the patient's family 30 Advance Care Planning/Goals of Care discussions as detailed above in note (must be >16min) 10 in subsequent review and synthesis of assessment and plan 10 in communicating with other providers regarding the patient's case: []
[2025-03-11] MEDS: cefTRIAXone SODIUM 2,000 MG/50 ML BAG IV SCH (10:59)
--- NOTE | 2025-03-11 15:28 | Hospitalist Progress Note ---
Date of Service March 11, 2025 Assessment & Plan (1) Inferior pubic ramus fracture: (2) CAD (coronary atherosclerotic disease): (3) Hypertension: (4) Delirium: (5) Dementia: Plan Patient is an 89-year-old female with past medical history significant for HLD, HTN, history of NSTEMI in December 2019 s/p cardiac catheterization with culprit vessel small AV groove portion of the left circumflex with subtotal occlusion [not amenable to stenting], CAD with mild to moderate diffuse coronary atherosclerosis as per cardiac catheterization in December 2019, history of remote LAD stent placement, history of ischemic cardiomyopathy with preserved LV systolic function and resting RWMA including apical/septal/apical anterior inferior hypokinesis, chronic venous insufficiency, chronic lymphedema, Raynaud's disease, vitamin B12 deficiency, generalized osteoarthritis, history of bilateral hip arthroplasties, moderate late onset Alzheimer's dementia, anxiety and other problems listed below who presented to the ED via EMS with complaint of left hip pain after sustaining a ground-level fall and was found to have multifocal acute traumatic fractures of the left pubic bone and an acute traumatic of the left inferior pubic ramus. Additional imaging including CXR, CTAP, cervical spine CT, chest CT and head CT w/o any additional traumatic findings. L pubic bone fxs & L interior pubic ramus fx: S/p unwitnessed ground level fall L hip CT: multifocal acute traumatic fxs of the left pubic bone resulting in mild impaction, acute traumatic fx of the left inferior pubic ramus Ortho consult; no surgery indicated WBAT with walker + assist; Fall precautions Soft easy wrap Schedule Tylenol, reduced oxycodone to 2.5mg as needed for severe breakthrough pain - pain controlled [facility] f/u 3-4 weeks DC [facility] Avoid narcotics given advanced age and underlying cognitive impairment Continue PT OT, fall precautions Case management to help with discharge planning Goals of care conversation; counseling, per previous provider on 03/08: Lengthy conversation held with pt , Deep, son and daughter Dolly, at bedside in ED Discussed pt diagnosis with hip fracture and underlying cognition. Pt is able to do most of her ADL's independently; however, appears she requires redirection and guidance throughout the day Discussed SNF vs Acute rehab and challenges with pain/retaining PT recommendations, etc Discussed code status; patient lacks decisional capacity. Family prefers transition to DNI DNR Formal palliative care consult -appreciate input Elderly patients with hip fractures tend to have poor outcomes primarily due to to the high risk of immobility related complications, persistent pain and inability to usually regain pre function ability. Some poor outcomes could be included in entirely rapid deconditioning, development of pressure ulcer, pneumonia, VTE, UTI all of which are usually exacerbated by prolonged immobility. Urinary tract Infection: Pt w/o urinary sx; however pt's daughter states she's prev been asymptomatic w/ UTIs before Urine Culture returned 03/08 with Klebsiella pneumonia; final culture pansensitive; continue IV Rocephin while admitted, EOT 03/11 Has 2 more days of IV Rocephin to complete the course HTN Continue Metoprolol w/ hold parameters Blood pressure more stable now CAD H/o NSTEMI H/o ischemic cardiomyopathy F/w [employer] cards H/O of bare-metal LAD stent placement in 2000 NSTEMI 2019 s/p cath with culprit vessel small AV groove portion of the left circumflex with subtotal occlusion [not amenable to stenting] preserved LV systolic function and resting RWMA including apical/septal/apical anterior inferior hypokinesis EKG unchanged from prior Continue ASA, metoprolol, statin Chronic lymphedema Resume HCTZ as able GERD Continue pantoprazole Pulmonary nodules Appear unchanged from prior imaging F/U as outpatient Indeterminate thyroid nodule noted on CTAP--> will need outpt thyroid US >> PCP can arrange Normal TSH Follow-up as outpatient DVT Prophylaxis: SCDs/TEDs; ASA CODE STATUS DNI DNR as discussed with palliative care/family Disposition Case management to help with discharge planning Admission and Anticipated Discharge Date Admission Date: March 06, 2025 Subjective Patient is seen and examined at bedside Pleasantly confused Admits to absent knee pain with activity Family at bedside Denies any chest pain, dizziness Poor historian Review of Systems Review of Systems: All systems reviewed & are unremarkable except as noted in Subjective Physical Exam Physical Exam: Physical Exam: Vitals signs as noted above General Appearance: Thin, frail, elderly, pleasantly confused, no apparent distress Head: normocephalic, Atraumatic Eyes: normal inspection, EOMI Neck: supple, Trachea midline Respiratory/Chest: Normal breath sounds, CTA, No accessory muscle use Cardiovascular: S1, S2, No murmur Abdomen/GI:Soft, Non tender, Bowel sounds present Extremities/Musculoskeletal:normal inspection, no edema Neurologic/Psych: Pleasantly confused, alert, awake,, grossly no focal neurological deficits Skin: normal color, warm Results & Data Results & Data Vital Signs (Past 12 Hours) Vital Signs Temp Pulse Pulse Resp BP Pulse Ox O2 Del Method 03/11/25 15:03 36.2 C L 83 17 138/81 96 Room Air 03/11/25 11:09 36.5 C 72 17 113/74 92 Room Air 03/11/25 07:18 103 H 03/11/25 07:03 36.4 C L 99 H 17 127/68 95 Room Air Laboratory Results Short CBC 03/11/25 Range/Units 06:55 WBC 5.98 (4.8-10.8) K/ul Hgb 12.3 (12.0-16.0) g/dl Hct 36.3 L (37.0-47.0) % Plt Count 231 (130-400) K/uL BMP 03/11/25 06:55 Sodium 142 Potassium 3.8 Chloride 110 H Carbon Dioxide 24 BUN 10 Creatinine 0.35 L Glucose 106 H Calcium 8.5 L (1) Inferior pubic ramus fracture Encounter type: initial encounter Fracture type: closed Laterality: left Qualified Code(s): S32.592A - Other specified fracture of left pubis, initial encounter for closed fracture
[2025-03-11 22:15] VITALS: TEMP 98.1
[2025-03-12 07:15] VITALS: O2SAT 96
[2025-03-12 11:11] VITALS: BP 122/74; PULSE 77; RESP 18
--- NOTE | 2025-03-12 11:30 | Hospitalist Progress Note ---
Date of Service March 12, 2025 Assessment & Plan (1) Inferior pubic ramus fracture: (2) CAD (coronary atherosclerotic disease): (3) Hypertension: (4) Delirium: (5) Dementia: Plan Patient is an 89-year-old female with past medical history significant for HLD, HTN, history of NSTEMI in December 2019 s/p cardiac catheterization with culprit vessel small AV groove portion of the left circumflex with subtotal occlusion [not amenable to stenting], CAD with mild to moderate diffuse coronary atherosclerosis as per cardiac catheterization in December 2019, history of remote LAD stent placement, history of ischemic cardiomyopathy with preserved LV systolic function and resting RWMA including apical/septal/apical anterior inferior hypokinesis, chronic venous insufficiency, chronic lymphedema, Raynaud's disease, vitamin B12 deficiency, generalized osteoarthritis, history of bilateral hip arthroplasties, moderate late onset Alzheimer's dementia, anxiety and other problems listed below who presented to the ED via EMS with complaint of left hip pain after sustaining a ground-level fall and was found to have multifocal acute traumatic fractures of the left pubic bone and an acute traumatic of the left inferior pubic ramus. Additional imaging including CXR, CTAP, cervical spine CT, chest CT and head CT w/o any additional traumatic findings. L pubic bone fxs & L interior pubic ramus fx: S/p unwitnessed ground level fall L hip CT: multifocal acute traumatic fxs of the left pubic bone resulting in mild impaction, acute traumatic fx of the left inferior pubic ramus Ortho consult; no surgery indicated WBAT with walker + assist; Fall precautions Soft easy wrap Schedule Tylenol, reduced oxycodone to 2.5mg as needed for severe breakthrough pain - pain controlled [facility] f/u 3-4 weeks [facility] Avoid narcotics given advanced age and underlying cognitive impairment Continue PT OT, fall precautions Case management to help with discharge planning Likely discharge to rehab facility today. If no improvement at SNF, patient's family prefers patient to transition to hospice eventually Goals of care conversation; counseling, per previous provider on 03/08: Lengthy conversation held with pt , Deep, son and daughter Dolly, at bedside in ED Discussed pt diagnosis with hip fracture and underlying cognition. Pt is able to do most of her ADL's independently; however, appears she requires redirection and guidance throughout the day Discussed SNF vs Acute rehab and challenges with pain/retaining PT recommendations, etc Discussed code status; patient lacks decisional capacity. Family prefers transition to DNI DNR Formal palliative care consult -appreciate input Elderly patients with hip fractures tend to have poor outcomes primarily due to to the high risk of immobility related complications, persistent pain and inability to usually regain pre function ability. Some poor outcomes could be included in entirely rapid deconditioning, development of pressure ulcer, pneumonia, VTE, UTI all of which are usually exacerbated by prolonged immobility. Urinary tract Infection: Pt w/o urinary sx; however pt's daughter states she's prev been asymptomatic w/ UTIs before Urine Culture returned 03/08 with Klebsiella pneumonia; final culture pansensitive; continue IV Rocephin while admitted, EOT 03/11 Transition IV Rocephin to oral antibiotic to complete the course tomorrow HTN Continue Metoprolol w/ hold parameters Blood pressure more stable now CAD H/o NSTEMI H/o ischemic cardiomyopathy F/w [employer]ine H/O of bare-metal LAD stent placement in 2000 NSTEMI 2019 s/p cath with culprit vessel small AV groove portion of the left circumflex with subtotal occlusion [not amenable to stenting] preserved LV systolic function and resting RWMA including apical/septal/apical anterior inferior hypokinesis EKG unchanged from prior Continue ASA, metoprolol, statin Chronic lymphedema Resume HCTZ as able GERD Continue pantoprazole Pulmonary nodules Appear unchanged from prior imaging F/U as outpatient Indeterminate thyroid nodule noted on CTAP--> will need outpt thyroid US >> PCP can arrange Normal TSH Follow-up as outpatient DVT Prophylaxis: SCDs/TEDs; ASA CODE STATUS DNI DNR as discussed with palliative care/family Disposition SNF Admission and Anticipated Discharge Date Admission Date: March 06, 2025 Subjective Patient is seen and examined at bedside No agitation, pleasantly confused Plan to discharge to rehab facility today Family at bedside Denies any chest pain, dyspnea, nausea, vomiting, abdominal pain Review of Systems Review of Systems: All systems reviewed & are unremarkable except as noted in Subjective Physical Exam Physical Exam: Physical Exam: Vitals signs as noted above General Appearance: Thin, frail, elderly, pleasantly confused, no apparent distress Head: normocephalic, Atraumatic Eyes: normal inspection, EOMI Neck: supple, Trachea midline Respiratory/Chest: Normal breath sounds, CTA, No accessory muscle use Cardiovascular: S1, S2, No murmur Abdomen/GI:Soft, Non tender, Bowel sounds present Extremities/Musculoskeletal:normal inspection, no edema Neurologic/Psych: Pleasantly confused, alert, awake,, grossly no focal neurological deficits Skin: normal color, warm Results & Data Results & Data Vital Signs (Past 12 Hours) Vital Signs Temp Pulse Pulse Pulse Resp BP BP 03/12/25 11:11 36.7 C 77 18 122/74 03/12/25 10:46 36.7 C 90 78 16 119/74 145/72 H 03/12/25 08:00 03/12/25 07:15 36.7 C 78 16 119/74 03/12/25 07:00 80 03/12/25 02:47 36.7 C 72 14 145/72 H Pulse Ox O2 Del Method 03/12/25 11:11 96 Room Air 03/12/25 10:46 96 03/12/25 08:00 Room Air 03/12/25 07:15 96 Room Air 03/12/25 07:00 03/12/25 02:47 92 Room Air (1) Inferior pubic ramus fracture Encounter type: initial encounter Fracture type: closed Laterality: left Qualified Code(s): S32.592A - Other specified fracture of left pubis, initial encounter for closed fracture
--- NOTE | 2025-03-12 11:37 | Discharge Summary ---
Date of Service March 12, 2025 Admission HPI Per Admitting Provider Patient is an 89-year-old female with past medical history significant for HLD, HTN, history of NSTEMI in December 2019 s/p cardiac catheterization with culprit vessel small AV groove portion of the left circumflex with subtotal occlusion [not amenable to stenting], CAD with mild to moderate diffuse coronary atherosclerosis as per cardiac catheterization in December 2019, history of remote LAD stent placement, chronic venous insufficiency, Raynaud's disease, vitamin B12 deficiency, generalized osteoarthritis, moderate late onset Alzheimer's dementia, anxiety and other problems listed below who presented to the ED via EMS with complaint of left hip pain after sustaining a ground-level fall. History obtained from the patient, family at bedside, discussion with ED provider and associated chart review. Patient seen at bedside with Dr. Neff. Unwitnessed GLF at home while ambulating in the kitchen. Currently lives at home with her . No reported LOC or head strike. No blood thinner use. Patient's was home to call EMS as patient was unable to get up off the floor due to significant left hip pain. Patient had been complaining of a mild headache on arrival as well however this has improved with IV Tylenol. Patient denies any significant amount of pain in the left hip at rest. Patient denies any chest pain, SOB or abdominal pain. Admission Exam Per Admitting Provider Physical Exam: Vitals signs as noted above General Appearance: Thin, frail, elderly, no apparent distress Head: normocephalic, Atraumatic Eyes: normal inspection, EOMI Neck: supple, Trachea midline Respiratory/Chest: Normal breath sounds, CTA, No accessory muscle use Cardiovascular: S1, S2, +murmur Abdomen/GI:Soft, Non tender, Bowel sounds present Extremities/Musculoskeletal:normal inspection, 1+ LE edema , left hip decreased ROM Neurologic/Psych:AAOX2, grossly no focal neurological deficits Skin: normal color, warm Principal Diagnosis Pubic bone fracture Fall Urinary tract infection Pulmonary nodule Thyroid nodule Discharge Data Allergies Allergy/AdvReac Type Severity Reaction Status Date / Time amoxicillin Allergy Intermediate RASH Verified 03/06/25 17:23 losartan Allergy Intermediate RASH/SWELLING Verified 03/06/25 17:23 OF LEGS Penicillins Allergy Intermediate RASH Verified 03/06/25 17:23 adhesive Allergy Mild TAPES-REDDENED Verified 03/06/25 17:23 RASH latex Allergy Mild RED HANDS Verified 03/06/25 17:23 WITH GLOVES Friegip-GXF-PqE Reductase Allergy Unknown Unknown Verified 03/06/25 17:23 Inhibitor [Auaolsx-Drk-Ybi Reductase Inhibitor] ciprofloxacin AdvReac Severe "sick" Verified 03/06/25 17:23 morphine AdvReac Severe Vomiting Verified 03/06/25 17:23 THAD Inhibitors AdvReac Intermediate Cough Verified 03/06/25 17:23 fentanyl AdvReac Intermediate FAINTED Verified 03/06/25 17:23 Consultations 03/06/25 18:23 Consult Orthopedic Surgery Routine 03/09/25 08:00 Consult Palliative Care Routine Procedures Performed Laboratory Results WBC 5.98 K/ul (4.8-10.8) 03/11/25 06:55 RBC 3.80 M/uL (4.20-5.40) L 03/11/25 06:55 Hgb 12.3 g/dl (12.0-16.0) 03/11/25 06:55 POC Hgb 13.6 g/dl (12.0-16.0) 03/06/25 16:11 Hct 36.3 % (37.0-47.0) L 03/11/25 06:55 POC Hct 40 % (37-47) 03/06/25 16:11 MCV 95.5 fL (80.0-100.0) 03/11/25 06:55 MCH 32.4 pg (25.0-34.0) 03/11/25 06:55 MCHC 33.9 g/dL (32.0-36.0) 03/11/25 06:55 RDW Std Deviation 47.4 fL (36.4-46.3) H 03/11/25 06:55 RDW Coeff of Damon 13.4 % (11.5-14.5) 03/11/25 06:55 Plt Count 231 K/uL (130-400) 03/11/25 06:55 MPV 8.7 fL (9.4-12.4) L 03/11/25 06:55 Immature Gran % (Auto) 0.3 % 03/07/25 04:26 Neut % (Auto) 73.2 % 03/07/25 04:26 Lymph % (Auto) 15.1 % 03/07/25 04:26 Foster % (Auto) 9.8 % 03/07/25 04:26 Eos % (Auto) 1.3 % 03/07/25 04:26 Baso % (Auto) 0.3 % 03/07/25 04:26 Neut # (Auto) 5.60 K/uL (1.40-6.50) 03/07/25 04:26 Lymph # (Auto) 1.15 K/uL (1.20-3.40) L 03/07/25 04:26 Foster # (Auto) 0.75 K/uL (0.11-0.59) H 03/07/25 04:26 Eos # (Auto) 0.10 K/uL (0.00-0.50) 03/07/25 04:26 Baso # (Auto) 0.02 K/uL (0.00-0.20) 03/07/25 04:26 Immature Gran # (Auto) 0.02 K/uL (0.01-0.20) 03/07/25 04:26 PT 10.9 Seconds (9.0-12.0) 03/06/25 15:57 INR 1.0 (0.9-1.1) 03/06/25 15:57 APTT 26 Seconds (21-31) 03/06/25 15:57 PTT Ratio 1.0 03/06/25 15:57 POC Sodium 141 mmol/L (135-144) 03/06/25 16:11 Sodium 142 mmol/L (136-145) 03/11/25 06:55 POC Potassium 4.3 mmol/L (3.3-5.0) 03/06/25 16:11 Potassium 3.8 mmol/L (3.5-5.1) 03/11/25 06:55 POC Chloride 103 mmol/L (101-112) 03/06/25 16:11 Chloride 110 mmol/L (98-107) H 03/11/25 06:55 Carbon Dioxide 24 mmol/L (21-32) 03/11/25 06:55 POC Total CO2 27 mmol/L (24-31) 03/06/25 16:11 Anion Gap 8 (3-11) 03/11/25 06:55 POC Anion Gap 16.0 mmol/L (16-25) 03/06/25 16:11 POC BUN 17 mg/dl (7-18) 03/06/25 16:11 BUN 10 mg/dl (6-23) 03/11/25 06:55 Creatinine 0.35 mg/dl (0.6-1.2) L 03/11/25 06:55 POC Creatinine 0.7 mg/dl (0.6-1.3) 03/06/25 16:11 Est Cr Clr Drug Dosing 87.9 ml/min 03/11/25 06:55 eGFR 98.25 03/11/25 06:55 BUN/Creatinine Ratio 28.6 (10-20) H 03/11/25 06:55 Glucose 106 mg/dl (70-99(Fasting)) H 03/11/25 06:55 POC Glucose (other) 97 mg/dl (70-99) 03/06/25 16:11 Calcium 8.5 mg/dl (8.6-10.3) L 03/11/25 06:55 POC Ioniz Calcium [place] 1.24 mmol/l (1.12-1.32) 03/06/25 16:11 Phosphorus 4.6 mg/dl (2.5-4.9) 03/07/25 04:26 Magnesium 1.8 mg/dl (1.7-2.4) 03/07/25 04:26 Total Bilirubin 0.8 mg/dl (0.2-1.0) 03/07/25 04:26 AST 38 U/L (13-39) 03/07/25 04:26 ALT 23 U/L (7-52) 03/07/25 04:26 Alkaline Phosphatase 61 U/L (34-104) 03/07/25 04:26 Total Protein 6.1 gm/dl (6.0-8.3) 03/07/25 04:26 Albumin 3.5 gm/dl (3.4-5.0) 03/07/25 04:26 Globulin 2.6 gm/dl (2.5-4.0) 03/07/25 04:26 Albumin/Globulin Ratio 1.3 (0.9-2) 03/07/25 04:26 Lipase 11 U/L (11-82) 03/06/25 15:57 25-OH Vitamin D Total 30.7 ng/ml (30-100) 03/07/25 04:26 TSH 2.211 uIu/ml (0.300-4.500) 03/07/25 04:26 Urine Color Yellow 03/06/25 16:40 Urine Appearance Clear (Clear) 03/06/25 16:40 Urine pH 5.5 (4.5-7.5) 03/06/25 16:40 Ur Specific [place] 1.022 (1.000-1.030) 03/06/25 16:40 Urine Protein Negative (Negative) 03/06/25 16:40 Urine Glucose (UA) Negative (Negative) 03/06/25 16:40 Urine Ketones Trace (Negative) H 03/06/25 16:40 Urine Blood Negative (Negative) 03/06/25 16:40 Urine Nitrite Positive (Negative) A 03/06/25 16:40 Urine Bilirubin Negative (Negative) 03/06/25 16:40 Urine Urobilinogen Negative (Negative) 03/06/25 16:40 Ur Leukocyte Esterase Trace (Negative) H 03/06/25 16:40 Urine WBC (Auto) 0-5 /hpf (0-5) 03/06/25 16:40 Urine RBC (Auto) 0-2 /hpf (0-2) 03/06/25 16:40 U Hyaline Cast (Auto) 0-2 /lpf (0-2) 03/06/25 16:40 U Epithel Cells (Auto) 3-5 /hpf (0-2) H 03/06/25 16:40 Urine Bacteria (Auto) 4+ (None Seen) H 03/06/25 16:40 Urine Comment 03/06/25 16:40 Impressions Chest X-Ray 03/06/25 15:53 EXAM: Portable AP chest radiograph TECHNIQUE: AP portable radiograph of the chest was obtained. INDICATION: Shortness of breath Comparison: Chest radiograph January 08, 2023 FINDINGS: LINES and TUBES: CARDIOVASCULAR: Cardiac silhouette is stably and mildly enlarged in size. Atherosclerosis of the thoracic aorta. LUNGS/PLEURA: No focal consolidation identified. Chronic interstitial lung changes. No significant pleural fluid. No discernible pneumothorax. OSSEOUS/OTHER: No displaced acute osseous process identified. Bilateral shoulder reverse arthroplasties. IMPRESSION: No radiographic evidence of acute cardiopulmonary process. Electronically signed by Charly Fischer 03-06-2025 4:39 PM Abdomen/Pelvis CT 03/06/25 15:54 CT ABDOMEN and PELVIS with INTRAVENOUS CONTRAST HISTORY: Abdominal pain TECHNIQUE: CT abdomen and pelvis with contrast. IV CONTRAST: 100 mL of OMNIPAQUE 300 ENTERIC CONTRAST: Not Given COMPARISON: None FINDINGS: LOWER CHEST: Please see separately dictated thoracic CT report LIVER: No focal lesion identified. Hepatic steatosis and hepatomegaly GALLBLADDER/BILIARY: Surgically absent gallbladder. Mild intrahepatic biliary dilation and prominent caliber to the common bile duct may be an expected finding following cholecystectomy and allowing for patient age. SPLEEN: Unremarkable. PANCREAS: Atrophic parenchyma without discrete mass.. ADRENALS: Unremarkable. KIDNEYS: Small cortical cysts. No stones or hydronephrosis identified. PERITONEUM/RETROPERITONEUM. No lymphadenopathy by size criteria. No aortic aneurysm. Extensive atherosclerosis with stenoses of the celiac trunk, SMA, the renal arteries and the [place]. Small presacral fluid that is nonspecific GASTROINTESTINAL: No obstruction. Colonic diverticulosis without evidence of diverticulitis. REPRODUCTIVE: Poorly evaluated due to obscuration by streak artifact. No obvious suspicious pelvic masses identified. BONES: Please refer to separately dictated left hip CT report for additional findings. Multiple chronic appearing mild compression deformities of the lumbar spine. No significant retropulsion is identified IMPRESSION: No evidence of acute visceral trauma to the abdomen or the pelvis. Electronically signed by Charly Fischer 03-06-2025 5:[address] 03/06/25 15:54 CT CERVICAL SPINE WITHOUT CONTRAST: HISTORY: TRAUMA TECHNIQUE: Noncontrast CT examination of the cervical spine is performed. Coronal and sagittal reformats were created. COMPARISON: Cervical spine CT June 06, 2022 FINDINGS: CERVICAL SPINE: There is no significant vertebral body height loss. No acute traumatic fracture identified. There is no significant spondylolisthesis. Multilevel degenerative changes characterized by disc osteophyte complex, bilateral facet and uncovertebral hypertrophy resulting and neural foraminal narrowing at multiple levels, worst at mid to lower spine. Visualized soft tissues of neck are unremarkable. IMPRESSION: No acute traumatic fracture of the cervical spine. Multilevel degenerative changes as above Electronically signed by Charly Fischer 03-06-2025 5:[address] 03/06/25 15:54 Clinical history: Fall Technique: Axial computed tomography images were obtained of the chest after the administration of intravenous contrast Comparison is made to the prior CT dated 12/23/2019 Findings: There is an unchanged 4 mm left lower lobe nodule. There is unchanged linear opacity along the left major fissure. There are unchanged small peripheral nodular opacities in the right upper lobe. There is no definite change in a 3 mm nodular opacity in the right lower lobe. There is no pleural effusion or pneumothorax. There are irregular opacities in the lung apices, likely due to pleural parenchymal scarring. No endobronchial lesion is seen There is no mediastinal, hilar, or axillary adenopathy. The thoracic aorta appears unremarkable with no sign of aneurysm or dissection. There is no pericardial effusion. There is coronary atherosclerosis There is a 1 cm nodule in the left thyroid lobe No fracture is seen. No focal osseous lesion is evident. There are bilateral shoulder arthroplasties Impression: 1. Several unchanged pulmonary nodules, benign given the long-term stability 2. Indeterminate thyroid nodule. A thyroid ultrasound could be obtained for further evaluation 3. Coronary atherosclerosis ACT 112: Positive. There are findings on this exam that require communication between the performing entity and the patient following Patient Test Result Information Act ([place] ACT 112) guidelines. Electronically signed by Cory Alcantar 03-06-2025 5:[address] 03/06/25 15:54 Clinical History: Fall Technique: Axial computed tomography images were obtained of the brain without intravenous contrast. Comparison is made to the prior CT dated 12/24/2019 Findings: There is unchanged cerebral atrophy, within expected limits for the patient's age. Areas of decreased attenuation are seen within the periventricular white matter, likely representing chronic small vessel ischemic disease. There are calcifications along the falx cerebri. There is no definite sign of acute or old infarction. No intracranial hemorrhage is evident. No definite mass lesion is seen on this noncontrast examination. There is no midline shift or other form of herniation. No hydrocephalus is seen. No fracture is identified. The orbits and the visualized paranasal sinuses appear unremarkable. The mastoid air cells appear clear. Impression: 1. Cerebral atrophy and chronic small vessel ischemic disease 2. Otherwise unremarkable noncontrast CT of the brain Electronically signed by Cory Alcantar 03-06-2025 5:[address] 03/06/25 15:57 CT LEFT HIP WITHOUT CONTRAST: HISTORY: Trauma TECHNIQUE: CT of the left hip was obtained without intravenous contrast. Coronal and sagittal reformats were created. COMPARISON: None FINDINGS: There are multifocal acute traumatic fractures involving the left pubic bone resulting in mild impaction. Acute traumatic fracture of the left inferior pubic ramus. Intramuscular hematomas in the abutting adductor muscles Patient is status post left hip arthroplasty with components in anatomic alignment. IMPRESSION: Multifocal acute traumatic fractures of the left pubic bone resulting mild impaction. Acute traumatic fracture of the left inferior pubic ramus. Intact left hip arthroplasty with components in anatomic alignment. Electronically signed by Charly Fischer 03-06-2025 5:38 PM Ordered Studies 03/06/25 15:54 CT abd pelvis IV con only Stat CT cervical spine wo con Stat CT chest diagnostic w con Stat CT head/brain wo con Stat 03/06/25 15:57 CT hip LT wo con Stat Hospital Course (1) Inferior pubic ramus fracture: (2) CAD (coronary atherosclerotic disease): (3) Hypertension: (4) Delirium: (5) Dementia: Plan Patient is an 89-year-old female with past medical history significant for HLD, HTN, history of NSTEMI in December 2019 s/p cardiac catheterization with culprit vessel small AV groove portion of the left circumflex with subtotal occlusion [not amenable to stenting], CAD with mild to moderate diffuse coronary atherosclerosis as per cardiac catheterization in December 2019, history of remote LAD stent placement, history of ischemic cardiomyopathy with preserved LV systolic function and resting RWMA including apical/septal/apical anterior inferior hypokinesis, chronic venous insufficiency, chronic lymphedema, Raynaud's disease, vitamin B12 deficiency, generalized osteoarthritis, history of bilateral hip arthroplasties, moderate late onset Alzheimer's dementia, anxiety and other problems listed below who presented to the ED via EMS with complaint of left hip pain after sustaining a ground-level fall and was found to have multifocal acute traumatic fractures of the left pubic bone and an acute traumatic of the left inferior pubic ramus. Additional imaging including CXR, CTAP, cervical spine CT, chest CT and head CT w/o any additional traumatic findings. L pubic bone fxs & L interior pubic ramus fx: S/p unwitnessed ground level fall L hip CT: multifocal acute traumatic fxs of the left pubic bone resulting in mild impaction, acute traumatic fx of the left inferior pubic ramus Ortho consult; no surgery indicated WBAT with walker + assist; Fall precautions Soft easy wrap Schedule Tylenol, reduced oxycodone to 2.5mg as needed for severe breakthrough pain - pain controlled [facility] f/u 3-4 weeks DC [place] Avoid narcotics given advanced age and underlying cognitive impairment Continue PT OT, fall precautions Case management to help with discharge planning Likely discharge to rehab facility today. If no improvement at SNF, patient's family prefers patient to transition to hospice eventually Goals of care conversation; counseling, per previous provider on 03/08: Lengthy conversation held with pt , Deep, son and daughter Dolly, at bedside in ED Discussed pt diagnosis with hip fracture and underlying cognition. Pt is able to do most of her ADL's independently; however, appears she requires redirection and guidance throughout the day Discussed SNF vs Acute rehab and challenges with pain/retaining PT recommendations, etc Discussed code status; patient lacks decisional capacity. Family prefers transition to DNI DNR Formal palliative care consult -appreciate input Elderly patients with hip fractures tend to have poor outcomes primarily due to to the high risk of immobility related complications, persistent pain and inability to usually regain pre function ability. Some poor outcomes could be included in entirely rapid deconditioning, development of pressure ulcer, pneumonia, VTE, UTI all of which are usually exacerbated by prolonged immobility. Urinary tract Infection: Pt w/o urinary sx; however pt's daughter states she's prev been asymptomatic w/ UTIs before Urine Culture returned 03/08 with Klebsiella pneumonia; final culture pansensitive; continue IV Rocephin while admitted, EOT 03/11 Transition IV Rocephin to oral antibiotic to complete the course tomorrow HTN Continue Metoprolol w/ hold parameters Blood pressure more stable now CAD H/o NSTEMI H/o ischemic cardiomyopathy F/w [employer] H/O of bare-metal LAD stent placement in 2000 NSTEMI 2019 s/p cath with culprit vessel small AV groove portion of the left circumflex with subtotal occlusion [not amenable to stenting] preserved LV systolic function and resting RWMA including apical/septal/apical anterior inferior hypokinesis EKG unchanged from prior Continue ASA, metoprolol, statin Chronic lymphedema Resume HCTZ as able GERD Continue pantoprazole Pulmonary nodules Appear unchanged from prior imaging F/U as outpatient Indeterminate thyroid nodule noted on CTAP--> will need outpt thyroid US >> PCP can arrange Normal TSH Follow-up as outpatient DVT Prophylaxis: SCDs/TEDs; ASA CODE STATUS DNI DNR as discussed with palliative care/family Disposition SNF Total Time Total Time Spent Total Time Spent (In Minutes): 45 minutes Discharge Plan Discharge Items Patient Disposition: [facility] Reason For Visit: L PUBIC BONE AND L PUBIC RAMI FRACTURES S/P FALL Discharge Diagnosis: Pubic bone fracture Fall Urinary tract infection Pulmonary nodule Thyroid nodule Condition on Discharge: Good Activity: Per Instructions section Exercise/Sports: As tolerated Exercise Comment: Weightbearing as tolerated with walker and maximal assistance Non-emergency contact: Primary Care Provider and Surgeon Call non-emergency contact if: you have any medication questions, your symptoms worsen, your pain is concerning for you and you have a fever Follow-up/Referrals: Hussein Andrade MD [Surgeon] - 04/01/25 10:30 am Gee Gamez DO [Primary Care Provider] - Diet: Heart Healthy Diet Texture: Easy to Chew Addtl Attending Provider Instructions: Follow-up with your primary care physician Dr. Gee Don in 1 week upon discharge from your physician Follow-up with your orthopedic surgeon Dr. Hussein Andrade on April 01, 2025 at 10:30 AM as scheduled --Complete the antibiotic course cefdinir for 1 more day as prescribed (start taking from 03/13/2025) -- You incidentally noted to have a lung nodule and thyroid nodule on imaging studies. Follow-up with your physician for further recommendations as outpatient. Seek immediate medical attention if your symptoms reoccur or worsen Please review medication list provided on discharge for any medication changes as instructed. Please call if you have any questions or problems. You can reach a [facility] hospitalist on duty at [facility] 24 hours a day by calling [phone] Pending Studies at Discharge: No Stand-Alone Forms: My [facility] Skilled Items Patient informed of condition?: Yes DNR: Yes Discharge Level of Care: Skilled Communicable Disease: No Discharge Prognosis: Stable Lines: None Urinary Catheter: No Medications and DC Order Prescriptions: New cefdinir 300 mg capsule 300 mg PO BID Qty: 2 0RF Rx Instructions: Start taking from 03/13/2025 Continued multivitamin Tablet 1 tab PO DAILY omega 5-piz-tqt-fish oil [Fish Oil] 1,000 mg (120 mg-180 mg) Capsule 1 cap PO QPM oxycodone 5 mg tablet 5 mg PO Q12H PRN (Reason: Severe Pain (Scale Score 7-10)) aspirin [Aspirin Low-Strength] 81 mg Tablet,Delayed Release (Dr/Ec) 81 mg PO DAILY metoprolol tartrate 25 mg tablet 12.5 mg PO BID pravastatin 40 mg Tablet 40 mg PO QPM acetaminophen [Tylenol Extra Strength] 500 mg Tablet 500 mg PO Q6H PRN (Reason: PAIN/FEVER) cyanocobalamin (vitamin B-12) [Vitamin B-12] 500 mcg Tablet 500 mcg PO Q OTHER DAY pantoprazole 40 mg tablet,delayed release (DR/EC) 40 mg PO DAILYBB hydrochlorothiazide 12.5 mg capsule 12.5 mg PO .2-3XWK nitroglycerin [Nitrostat] 0.4 mg Tablet, Sublingual 0.4 mg sublingual DIRECTED PRN (Reason: Chest Pain) pyridoxine (vitamin B6) [Vitamin B-6] 50 mg Tablet 50 mg PO DAILY ondansetron 4 mg tablet,disintegrating 4 mg translingual Q8H PRN (Reason: NAUSEA/VOMITING) fluticasone propionate [Flonase] 50 mcg/actuation [place],Suspension 2 spray INTRANASAL DAILY PRN (Reason: Nasal Congestion) Rx Instructions: administer into each nostril simethicone 80 mg Tablet,Chewable 80 mg PO Q6H PRN (Reason: GAS DISCOMFORT) bisacodyl 5 mg Tablet 5 mg PO DAILY PRN (Reason: Constipation) cholecalciferol (vitamin D3) [Vitamin D3] 25 mcg (1,000 unit) Capsule 25 mcg PO DAILY Ensure High Protein Liquid 1 ea PO DIRECTED Saline Nasal 0.65 % Aerosol,[place] 1 spray INTRANASAL DAILY PRN (Reason: Congestion) coQ10 (ubiquinol) 200 mg Capsule 200 mg PO QPM Neuriva Original 100-100 mg Capsule 1 cap PO QPM Beet Root 1 dose PO DAILY Discharge Orders: Discharge Order (Routine); Ordered 03/12/25 Ordered By: Frank Neff Admission Data Admit Date/Time: 03/06/25 19:05 Attending Provider: Frank Neff Admit Provider: Frank Neff Primary Care Provider: Gee Gamez Other Providers: Bob Friedman; Frank Neff; [place]ell,Care
== END 2025-03-12 12:55 | DRG 536 ==
LOC: ED 14:50 → EDINP 19:05 → SUATTDRO 19:05 → 2N 03-07 20:51